=== PATIENT | male | born 1945 | race Caucasian/White ===

== ENCOUNTER 2020-10-27 15:17 | Emergency (ER) | payer OTHER ==
--- NOTE | 2020-10-27 16:21 | RAD REPORT ---
EXAM DESCRIPTION: RAD - Hand Right 3 View - 10/27/2020 4:06 pm CLINICAL HISTORY: PAIN COMPARISON: <Comparisons> FINDINGS: No right hand fracture is identified. Degenerative changes are present at the STT joint. N o malalignment. IMPRESSION: No right hand fracture is identified.
[2020-10-27] MEDS ORDERED: CEPHALEXIN 250 MG CAP ONE (17:07)
[2020-10-27] MEDS ORDERED: SMZ./TMP. 800/160 MG TABLET ONE (17:07)
--- NOTE | 2020-10-27 17:11 | ER ---
Nurse's Notes [facility] Name: Matthew Avila Age: 75 yrs Sex: Male : 1945 Arrival Date: 10/27/2020 Time: 15:19 Bed DIS2 Private MD: Diagnosis: Cellulitis of right upper limb-Hand Presentation: 10/27 15:38 Chief complaint: Patient states: Pain to the back of right hand starting at 13:00. Pt kg denies and trauma or injury to hand. Coronavirus screen: Client denies travel out of the [place] in the last 14 days. At this time, unable to obtain information related to travel outside the [place] At this time, the client does not indicate any symptoms associated with coronavirus-19. Ebola Screen: Patient negative for fever greater than or equal to 101.5 degrees Fahrenheit, and additional compatible Ebola Virus Disease symptoms Patient denies exposure to infectious person. Patient denies travel to an Ebola-affected area in the 21 days before illness onset. Initial Sepsis Screen: Does the patient meet any 2 criteria? No. Patient's initial sepsis screen is negative. Does the patient have a suspected source of infection? No. Patient's initial sepsis screen is negative. Risk Assessment: Do you want to hurt yourself or someone else? Patient reports no desire to harm self or others. Onset of symptoms was October 27, 2020 at 13:00. 15:38 Method Of Arrival: Ambulatory kg 15:38 Acuity: NELLY 4 kg Triage Assessment: 15:41 General: Appears in no apparent distress. Behavior is calm, cooperative, appropriate kg for age, quiet. Pain: Complains of pain in right hand Pain currently is 7 out of 10 on a pain scale. at worst was 9 out of 10 on a pain scale. level that patient reports is acceptable is 5 out of 10 on a pain scale. Pain began 3 hours ago. 15:41 Musculoskeletal: Capillary refill < 3 seconds, Swelling present in right hand Redness kg to back of hand, warm to touch. Historical: - Allergies: 15:41 No Known Allergies; kg - Home Meds: 15:41 amlodipine 5 mg tab 1 tab once daily [Active]; atorvastatin 80 mg oral tab 1 tab once kg daily [Active]; donepezil 5 mg oral tab 1 tab once daily [Active]; losartan 100 mg oral tab 1 tab once daily [Active]; Levemir U-100 Insulin 100 unit/mL subcutaneous soln [Active]; montelukast 10 mg oral tab 1 tab once daily [Active]; Myrbetriq 25 mg oral Tb24 1 tab once daily [Active]; tamsulosin 0.4 mg oral cap 1 cap once daily [Active]; Vascepa 1 gram oral cap 2 caps 2 times per day [Active]; venlafaxine 150 mg oral cp24 1 cap once daily [Active]; - PMHx: 15:41 Hypertensive disorder; Hypercholesterolemia; Type 2 diabetes mellitus; Dementia; kg - PSHx: 15:41 Left shoulder SX; kg - Immunization history:: Adult Immunizations up to date, Client reports receiving the 2nd dose of the Covid vaccine, Date received: April 25, 2020 Client reports receiving the 1st dose of the Covid vaccine, March 26, 2020. - Social history:: Smoking status: Patient denies any tobacco usage or history of. Patient uses alcohol, occasionally. - Family history:: not pertinent. - Hospitalizations: : No recent hospitalization is reported. Screenin:24 Abuse screen: Denies threats or abuse. Denies injuries from another. Nutritional ss screening: No deficits noted. Tuberculosis screening: Never had TB. Fall Risk None identified. Assessment: 16:24 General: Appears in no apparent distress. comfortable, Behavior is calm, cooperative, ss Denies fever, feeling ill, fatigue, chills. Pain: Complains of pain in right hand Pain currently is 7 out of 10 on a pain scale. Quality of pain is described as tender, Is continuous. Neuro: Level of Consciousness is awake, alert, obeys commands, Oriented to person, place, time, situation, Die Developer are equal bilaterally. Cardiovascular: Capillary refill < 3 seconds is brisk in bilateral fingers Patient's skin is warm and dry. Respiratory: Airway is patent Respiratory effort is even, unlabored, Respiratory pattern is regular, symmetrical, Denies cough, shortness of breath. EENT: Oral mucosa is moist. Derm: Skin is intact, is healthy with good turgor, Skin is dry, Skin is pink, warm \T\ dry. normal. Musculoskeletal: Swelling absent. 17:13 Reassessment: Patient appears in no apparent distress at this time. Patient and/or ss family updated on plan of care and expected duration. Pain level reassessed. Patient is alert, oriented x 3, equal unlabored respirations, skin warm/dry/pink. Vital Signs: 15:38 BP 150 / 89; Pulse 77; Resp 20; Temp 98.4(O); Pulse Ox 95% ; Weight 99.79 kg (R); kg Height 5 ft. 8 in. (172.72 cm) (R); Pain 7/10; 15:38 Body Mass Index 33.45 (99.79 kg, 172.72 cm) kg ED Course: 15:19 Patient arrived in ED. as 15:41 Triage completed. kg 15:59 Alec Melton MD is Attending Physician. rn 16:02 XRAY Hand RIGHT 3 View In Process Unspecified. EDMS 16:24 Mahi Clay RN is Primary Nurse. ss 16:24 Patient has correct armband on for positive identification. Bed in low position. Call ss light in reach. 17:11 Jason Cunningham MD is Referral Physician. rn 17:13 No provider procedures requiring assistance completed. Patient did not have IV access ss during this emergency room visit. Administered Medications: 16:50 Drug: Bactrim (trimethoprim-sulfamethoxazole) (160 mg-800 mg (DS) 2 tablet Route: PO; ss 17:13 Follow up: Response: No adverse reaction; Medication administered at discharge. ss 16:50 Drug: KeFLEX (cephalexin) 500 mg Route: PO; ss 17:13 Follow up: Response: No adverse reaction; Medication administered at discharge. ss Outcome: 17:11 Discharge ordered by . rn 17:19 Discharged to home ambulatory, with significant other. ss 17:19 Condition: good 17:19 Discharge instructions given to patient, Instructed on discharge instructions, follow up and referral plans. wound care, Demonstrated understanding of instructions, follow-up care, wound care. 17:20 Patient left the ED. ss Signatures: Dispatcher [employer] EDNC Macy Hale Roman, MD MD rn Smirch, Shelby, RN RN ss Yomaira Ramachandran RN RN kg
--- NOTE | 2020-10-27 17:11 | EDPHYS ---
Physician Documentation [facility] Name: Matthew Avila Age: 75 yrs Sex: Male : 1945 Arrival Date: 10/27/2020 Time: 15:19 Bed DIS2 Private MD: ED Physician Alec Melton HPI: 10/27 17:06 This 75 yrs old Male presents to ER via Ambulatory with complaints of Hand rn Swelling. 17:06 The patient or guardian reports pain, swelling. The complaints affect the right hand rn diffusely. Context: The problem was sustained at home, resulted from an unknown cause. Onset: The symptoms/episode began/occurred today. Modifying factors: The symptoms are alleviated by nothing, the symptoms are aggravated by movement, dependent position. Associated signs and symptoms: Pertinent negatives: cyanosis distally, decreased sensation distally, fever, numbness distally, tingling distally, vomiting. Severity of symptoms: At their worst the symptoms were moderate, in the emergency department the symptoms are unchanged. The patient has not experienced similar symptoms in the past. The patient has not recently seen a physician. Patient reports right hand pain that began a few hours ago, denies focal injury or fall. Patient not aware of any sting or bite. States is never happened before. Reports increased pain with movement of the hand and touching swollen area on the back of the right hand. No fever or chills.. Historical: - Allergies: 15:41 No Known Allergies; kg - Home Meds: 15:41 amlodipine 5 mg tab 1 tab once daily [Active]; atorvastatin 80 mg oral tab 1 tab once kg daily [Active]; donepezil 5 mg oral tab 1 tab once daily [Active]; losartan 100 mg oral tab 1 tab once daily [Active]; Levemir U-100 Insulin 100 unit/mL subcutaneous soln [Active]; montelukast 10 mg oral tab 1 tab once daily [Active]; Myrbetriq 25 mg oral Tb24 1 tab once daily [Active]; tamsulosin 0.4 mg oral cap 1 cap once daily [Active]; Vascepa 1 gram oral cap 2 caps 2 times per day [Active]; venlafaxine 150 mg oral cp24 1 cap once daily [Active]; - PMHx: 15:41 Hypertensive disorder; Hypercholesterolemia; Type 2 diabetes mellitus; Dementia; kg - PSHx: 15:41 Left shoulder SX; kg - Immunization history:: Adult Immunizations up to date, Client reports receiving the 2nd dose of the Covid vaccine, Date received: April 25, 2020 [facility] Client reports receiving the 1st dose of the Covid vaccine, March 26, 2020 [facility]. - Social history:: Smoking status: Patient denies any tobacco usage or history of. Patient uses alcohol, occasionally. - Family history:: not pertinent. - Hospitalizations: : No recent hospitalization is reported. ROS: 17:06 Constitutional: Negative for fever, chills, and weight loss, MS/Extremity: Positive for rn pain and swelling back of right hand Skin: Positive for redness of hand Exam: 17:06 Constitutional: This is a well developed, well nourished patient who is awake, alert, rn and in no acute distress. MS/ Extremity: Pulses equal, no cyanosis. Neurovascular intact. 2 to 3 cm area of mild swelling/erythema/warmth to dorsum of right hand just distal to wrist. No fusiform swelling of fingers or tenderness of fingers. There is a small break in skin and central area of erythema. Does not appear to be a bite or laceration. No focal fluctuance. No streaking or crossing of erythema past wrist or fingers. Vital Signs: 15:38 BP 150 / 89; Pulse 77; Resp 20; Temp 98.4(O); Pulse Ox 95% ; Weight 99.79 kg (R); kg Height 5 ft. 8 in. (172.72 cm) (R); Pain 7/10; 15:38 Body Mass Index 33.45 (99.79 kg, 172.72 cm) kg MDM: 16:19 Patient medically screened. 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 Data reviewed: vital signs, nurses notes, radiologic studies, plain films, and as a result, I will discharge patient. Test interpretation: by ED physician or midlevel provider: plain radiologic studies, X-ray right hand negative for foreign body or acute fracture. Counseling: I had a detailed discussion with the patient and/or guardian regarding: the historical points, exam findings, and any diagnostic results supporting the discharge/admit diagnosis, radiology results, the need for outpatient follow up, to return to the emergency department if symptoms worsen or persist or if there are any questions or concerns that arise at home. Special discussion: I discussed with the patient/guardian in detail that at this point there is no indication for admission to the hospital. It is understood, however, that if the symptoms persist or worsen the patient needs to return immediately for re-evaluation. Based on the history and exam findings, there is no indication for further emergent testing or inpatient evaluation. I discussed with the patient/guardian the need to see the hand specialist for further evaluation of the symptoms. 10/27 15:49 Order name: XRAY Hand RIGHT 3 View; Complete Time: 16:22 kg 10/27 17:06 Order name: Sling; Complete Time: 17:13 rn Administered Medications: 16:50 Drug: Bactrim (trimethoprim-sulfamethoxazole) (160 mg-800 mg (DS) 2 tablet Route: PO; ss 17:13 Follow up: Response: No adverse reaction; Medication administered at discharge. ss 16:50 Drug: KeFLEX (cephalexin) 500 mg Route: PO; ss 17:13 Follow up: Response: No adverse reaction; Medication administered at discharge. 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
[2020-10-27 17:26] VITALS: BP 150/89; TEMP 98.4; O2SAT 95
[2020-10-27] MEDS ORDERED: HYDROCODONE/APAP 5/325 MG TAB ONE (17:36)
== END 2020-10-27 17:20 | disposition home or self-care (01) ==
LOC: ER 15:17
DX: L03.113 Cellulitis of right upper limb (principal); I10 Essential (primary) hypertension; E11.9 Type 2 diabetes mellitus without complications; F03.90 Unspecified dementia, unspecified severity, without behavioral disturbance, psychotic disturbance, mood disturbance, and anxiety; Z79.4 Long term (current) use of insulin
CPT/HCPCS: 99283

== ENCOUNTER 2021-03-22 16:10 | Emergency (ER) | payer OTHER ==
[2021-03-22 16:47] LABS: Absolute Lymphocytes (CBC) 0.7 K/uL (0.7-4.9); Hematocrit 43.4 % (39.6-49.0); Lymphocytes % 8.1 % (15.3-44.8); MPV 7.8 fL (7.6-11.3); RBC Red Blood Cell Count 4.83 M/uL (4.33-5.43)
[2021-03-22 16:54] LABS: Protime INR 1.03
[2021-03-22 17:10] LABS: Albumin 3.3 g/dL (3.4-5.0); Bilirubin Direct 0.1 mg/dL (0-0.2); Bilirubin Total 0.6 mg/dL (0.2-1.0); Potassium 4.2 mmol/L (3.5-5.1); Protein, Total 6.8 g/dL (6.4-8.2)
[2021-03-22 17:11] LABS: Magnesium 2.8 mg/dL (1.8-2.4)
[2021-03-22 17:15] LABS: Troponin High Sensitivity 277.9 pg/mL (<58.9)
--- NOTE | 2021-03-22 18:04 | RAD REPORT ---
EXAM DESCRIPTION: CT - Head Brain Wo Cont - 03/22/2021 5:41 pm CLINICAL HISTORY: MENTAL STATUS CHANGE COMPARISON: No comparisons TECHNIQUE: Axial 5 mm thick images of the head were obtained without IV contrast. All CT scans are performed using dose optimization technique as appropriate and may include automated exposure control or mA/KV adjustment according to patient size. FINDINGS: No intracranial hemorrhage, mass, edema or shift of mid-line structures. No acute cortical based infarction. Mild to moderate atrophy changes are present with mild to moderate chronic ischemi c change. No abnormal extra-axial fluid collections. Ventricles are in proportion to volume loss. Art erial and physiologic calcifications are present. Mastoid air cells and visualized portions of the paranasal sinuses are clear. No acute bony findings. IMPRESSION: Mild to moderate atrophy and mild to moderate chronic ischemic changes are present. No a cute intracranial finding seen.
[2021-03-22] MEDS ORDERED: AMLODIPINE 5 MG TAB ONE (18:09)
--- NOTE | 2021-03-22 18:25 | RAD REPORT ---
EXAM DESCRIPTION: RAD - Chest Single View - 03/22/2021 5:48 pm CLINICAL HISTORY: AMS COMPARISON: Two-view chest March 2018 TECHNIQUE: AP portable chest image was obtained 03/22/2021 5:48 pm . FINDINGS: No peripheral mass consolidation. Interstitial pattern is accentuated from the prior study due to lower lung volumes, under penetrated technique and portable imaging. Nodular focus in the lef t upper lobe has not changed. Cardiac silhouette is exaggerated due to same collection of exam limita tions. Upper lobe vasculature within normal range for portable imaging. No measurable pleural effusion and no pneumothorax. No acute bony abnormality seen. No acute aortic findings suspected. IMPRESSION: Enlarged cardiac silhouette and prominent interstitial pattern similar to March 2018.
--- NOTE | 2021-03-22 20:44 | ER ---
Nurse's Notes [facility] Name: Matthew Avila Age: 76 yrs Sex: Male : 1945 Arrival Date: 03/22/2021 Time: 16:16 Bed 4 Private MD: Diagnosis: Hypoglycemia, unspecified Presentation: 03/22 16:17 Chief complaint: EMS states: EMS called to residence for low blood sugar, initial BGL ph 42, 18G IV to LFA, 1/2 amp of dextrose given, pt also ate a snack, BGL improved to 235. Pt is also hypertensive 203/106, reports hx of hypertension, states that he did take his medications this morning, also has a hx of dementia. Coronavirus screen: Vaccine status: Patient reports receiving the 2nd dose of the covid vaccine. At this time, the client does not indicate any symptoms associated with coronavirus-19. Ebola Screen: No symptoms or risks identified at this time. Initial Sepsis Screen: Does the patient meet any 2 criteria? No. Patient's initial sepsis screen is negative. Does the patient have a suspected source of infection? No. Patient's initial sepsis screen is negative. Risk Assessment: Do you want to hurt yourself or someone else? Patient reports no desire to harm self or others. Onset of symptoms was March 22, 2021. 16:17 Method Of Arrival: EMS: [facility] 16:17 Acuity: NELLY 3 ph Historical: - Home Meds: 16:29 amlodipine 5 mg tab 1 tab once daily [Active]; atorvastatin 80 mg Oral tab 1 tab once ph daily [Active]; donepezil 5 mg Oral tab 1 tab once daily [Active]; Levemir U-100 Insulin 100 unit/mL subcutaneous soln [Active]; losartan 100 mg Oral tab 1 tab once daily [Active]; montelukast 10 mg Oral tab 1 tab once daily [Active]; Myrbetriq 25 mg Oral Tb24 1 tab once daily [Active]; tamsulosin 0.4 mg Oral cap 1 cap once daily [Active]; Vascepa 1 gram Oral cap 2 caps 2 times per day [Active]; venlafaxine 150 mg Oral cp24 1 cap once daily [Active]; - PMHx: 16:29 Dementia; Hypercholesterolemia; Hypertensive disorder; Type 2 Diabetes Mellitus; ph - PSHx: 16:29 Left shoulder sx; ph - Immunization history:: Adult Immunizations unknown, Client reports receiving the 2nd dose of the Covid vaccine. - Social history:: Smoking status: Patient denies any tobacco usage or history of. Screenin:28 Abuse screen: Denies threats or abuse. Denies injuries from another. Nutritional ph screening: No deficits noted. Tuberculosis screening: No symptoms or risk factors identified. Fall Risk None identified. Assessment: 16:50 General: Appears in no apparent distress. comfortable, well groomed, Behavior is calm, ph cooperative, appropriate for age, Denies fever, feeling ill. Pain: Complains of pain in right episcopal. Neuro: Level of Consciousness is awake, alert, obeys commands, Oriented to person, place, situation, Speech is normal, Facial symmetry appears normal. Cardiovascular: Denies chest pain, shortness of breath, Capillary refill < 3 seconds in bilateral fingers Patient's skin is warm and dry. Respiratory: No deficits noted. GI: No signs and/or symptoms were reported involving the gastrointestinal system. Derm: Skin is intact, is healthy with good turgor, Skin is pink, warm \T\ dry. Musculoskeletal: Circulation, motion, and sensation intact. Range of motion: intact in all extremities. 18:14 Reassessment: Patient appears in no apparent distress at this time. Patient and/or ph family updated on plan of care and expected duration. Pain level reassessed. Patient is alert, oriented x 3, equal unlabored respirations, skin warm/dry/pink. Pt medicated for BP, also given a sandwich to maintain BGL WNL. 19:38 General: Appears uncomfortable. Pain:. mk Vital Signs: 16:15 BP 174 / 110; Pulse 80; Resp 18; Temp 98.2(O); Pulse Ox 99% ; ph 16:17 BP 168 / 110; Pulse 74; Resp 18; Temp 98.2; Pulse Ox 96% on R/A; ph 16:30 BP 182 / 118; Pulse 78; Resp 16; Pulse Ox 98% on R/A; ph 17:30 BP 172 / 112; Pulse 82; Resp 18; Pulse Ox 98% on R/A; ph 19:37 BP 181 / 105; Pulse 81; Resp 18; Pulse Ox 98% on R/A; Lianne Coma Score: 19:37 Eye Response: spontaneous(4). Verbal Response: oriented(5). Motor Response: obeys mk commands(6). Total: 15. ED Course: 16:16 Patient arrived in ED. ph 16:17 Kirk Metcalf NP is PHCP. pm1 16:17 Gregory Sotomayor MD is Attending Physician. pm1 16:28 Triage completed. ph 16:29 Arm band placed on Patient placed in an exam room. ph 16:30 Patient has correct armband on for positive identification. Placed in gown. Bed in low ph position. Call light in reach. Side rails up X2. Pulse ox on. NIBP on. Door closed. Noise minimized. Warm blanket given. 16:50 Paz Pandey RN is Primary Nurse. ph 16:51 Initial lab(s) drawn, by me, sent to lab. Maintain EMS IV. Dressing intact. Good blood ph return noted. Site clean \T\ dry. Gauge \T\ site: 18 LAC. 17:41 CT Head Brain wo Cont In Process Unspecified. EDMS 17:48 XRAY Chest (1 view) In Process Unspecified. EDMS Administered Medications: 18:15 Drug: amLODIPine 5 mg Route: PO; ph 18:30 Follow up: Response: No adverse reaction ph Outcome: 20:43 Discharge ordered by MD. pm1 21:02 Patient left the ED. andrew Signatures: Dispatcher [employer] EDaPz Santillan RN RN Kirk Metcalf NP [facility] pm1 Avril Olivo RN RN mk
--- NOTE | 2021-03-22 20:44 | EDPHYS ---
Physician Documentation [facility] Name: Matthew Avila Age: 76 yrs Sex: Male : 1945 Arrival Date: 03/22/2021 Time: 16:16 Bed 4 Private MD: GERA Physician Gregory Sotomayor HPI: 03/22 16:29 This 76 yrs old Male presents to ER via EMS with complaints of Low Blood Sugar. pm1 16:29 The patient or guardian reports hypoglycemia, that was potentially precipitated by not pm1 eating with dosage of insulin, Treatment prior to arrival includes: EMS administered D50, checked blood sugar on arrival, which was 42, after treatment, the blood sugar was 285. Onset: The symptoms/episode began/occurred just prior to arrival. Associated signs and symptoms: Pertinent negatives: nausea, vomiting, chest pain, shortness of breath. Current symptoms: In the emergency department the patient's symptoms have improved. It is unknown whether or not the patient has had similar symptoms in the past. The patient has not recently seen a physician, the patient's primary care provider is Dr. Zavala. Historical: - Home Meds: 16:29 amlodipine 5 mg tab 1 tab once daily [Active]; atorvastatin 80 mg Oral tab 1 tab once ph daily [Active]; donepezil 5 mg Oral tab 1 tab once daily [Active]; Levemir U-100 Insulin 100 unit/mL subcutaneous soln [Active]; losartan 100 mg Oral tab 1 tab once daily [Active]; montelukast 10 mg Oral tab 1 tab once daily [Active]; Myrbetriq 25 mg Oral Tb24 1 tab once daily [Active]; tamsulosin 0.4 mg Oral cap 1 cap once daily [Active]; Vascepa 1 gram Oral cap 2 caps 2 times per day [Active]; venlafaxine 150 mg Oral cp24 1 cap once daily [Active]; - PMHx: 16:29 Dementia; Hypercholesterolemia; Hypertensive disorder; Type 2 Diabetes Mellitus; ph - PSHx: 16:29 Left shoulder sx; ph - Immunization history:: Adult Immunizations unknown, Client reports receiving the 2nd dose of the Covid vaccine. - Social history:: Smoking status: Patient denies any tobacco usage or history of. ROS: 16:29 Constitutional: Negative for fever, chills, and weight loss, Cardiovascular: Negative pm1 for chest pain, palpitations, and edema, Respiratory: Negative for shortness of breath, cough, wheezing, and pleuritic chest pain, Abdomen/GI: Negative for abdominal pain, nausea, vomiting, diarrhea, and constipation, MS/Extremity: Negative for injury and deformity, Skin: Negative for injury, rash, and discoloration. Vital Signs: 16:15 BP 174 / 110; Pulse 80; Resp 18; Temp 98.2(O); Pulse Ox 99% ; ph 16:17 BP 168 / 110; Pulse 74; Resp 18; Temp 98.2; Pulse Ox 96% on R/A; ph 16:30 BP 182 / 118; Pulse 78; Resp 16; Pulse Ox 98% on R/A; ph 17:30 BP 172 / 112; Pulse 82; Resp 18; Pulse Ox 98% on R/A; ph 19:37 BP 181 / 105; Pulse 81; Resp 18; Pulse Ox 98% on R/A; mk Fairborn Coma Score: 19:37 Eye Response: spontaneous(4). Verbal Response: oriented(5). Motor Response: obeys mk commands(6). Total: 15. MDM: 16:18 Patient medically screened. eliane 20:15 Data reviewed: vital signs. Data interpreted: Pulse oximetry: on room air is 98 %. pm1 Interpretation: normal. 20:39 Refusal of service: The patient/guardian displays adequate decision making capability pm1 and despite a detailed discussion of alternatives, benefits, risks, and consequences refuses: repeat troponin. Had discussion with patient and on need for repeat troponin for further evaluation and possible admission. Patient does not want to wait any longer in the ER due to the time that he has already spent in the ER. 20:39 Special discussion: I have referred the patient to see his PCP for further evaluation pm1 of high blood pressure. 03/22 16:28 Order name: Basic Metabolic Panel; Complete Time: 17:17 pm1 03/22 16:28 Order name: CBC with Diff; Complete Time: 17:02 pm1 03/22 16:28 Order name: LFT's; Complete Time: 17:17 pm1 03/22 16:28 Order name: Magnesium; Complete Time: 17:17 pm1 03/22 16:28 Order name: NT PRO-BNP; Complete Time: 17:17 pm1 03/22 16:28 Order name: PT-INR; Complete Time: 17:02 pm1 03/22 16:28 Order name: Troponin HS; Complete Time: 17:17 pm1 03/22 16:28 Order name: XRAY Chest (1 view); Complete Time: 18:35 pm1 03/22 16:28 Order name: EKG; Complete Time: 16:29 pm1 03/22 16:28 Order name: CT Head Brain wo Cont; Complete Time: 18:05 pm1 03/22 16:41 Order name: Glucose, Ancillary Testing; Complete Time: 17:02 EDMS 03/22 19:44 Order name: Glucose, Ancillary Testing; Complete Time: 19:46 EDMS 03/22 19:51 Order name: COVID-19/FLU A+B (Document "Date of Onset" if Symptomatic) pm1 03/22 16:28 Order name: Cardiac monitoring; Complete Time: 16:52 pm1 03/22 16:28 Order name: EKG - Nurse/Tech; Complete Time: 18:03 pm1 03/22 16:28 Order name: IV Saline Lock; Complete Time: 16:52 pm1 03/22 16:28 Order name: Labs collected and sent; Complete Time: 16:52 pm1 03/22 16:28 Order name: O2 Per Protocol; Complete Time: 16:52 pm1 03/22 16:28 Order name: O2 Sat Monitoring; Complete Time: 16:52 pm1 Administered Medications: 18:15 Drug: amLODIPine 5 mg Route: PO; ph 18:30 Follow up: Response: No adverse reaction ph Disposition: 03/23 07:52 Co-signature as Attending Physician, Gregory Sotomayor MD I agree with the assessment and eliane plan of care. Disposition Summary: 03/22/21 20:43 Discharge Ordered Location: Home pm1 Problem: new pm1 Symptoms: have improved pm1 Condition: Undetermined pm1 Diagnosis - Hypoglycemia, unspecified pm1 Followup: pm1 - With: Emergency Department - When: As needed - Reason: Worsening of condition Followup: pm1 - With: Private Physician - When: 2 - 3 days - Reason: Recheck today's complaints, Continuance of care, Re-evaluation by your physician Discharge Instructions: - Discharge Summary Sheet pm1 - Hypoglycemia pm1 - Blood Glucose Monitoring, Adult pm1 - Preventing Hypoglycemia pm1 Forms: - Medication Reconciliation Form pm1 - Thank You Letter pm1 - Antibiotic Education pm1 - Prescription Opioid Use pm1 Signatures: Dispatcher [employer] EDGregory Fisher MD MD cha Hall, Patricia, RN RN Kirk Marin, DAV PATCHER pm1
[2021-03-22 21:37] VITALS: TEMP 98.2
[2021-03-22 21:40] VITALS: O2SAT 98
[2021-03-22 21:43] VITALS: BP 181/105
[2021-03-22 21:44] LABS: SARS-COV-2 RT PCR NEGATIVE (NEGATIVE)
--- NOTE | 2021-03-24 07:29 | EKG ---
Test Date: 2021-03-22 Test Time: 17:09:19 [place] Hiker: PH MEASUREMENT RESULTS: Intervals: Rate: 83 DC: 192 QRSD: 118 QT: 402 QTc: 472 [place]: P: 43 DC: 192 QRS: 16 T: 40 INTERPRETIVE STATEMENTS: Normal sinus rhythm Incomplete right bundle branch block Nonspecific T wave abnormality Prolonged QT Abnormal ECG Compared to ECG 04/04/2018 11:57:42 Incomplete right bundle-branch block now present T-wave abnormality now present Prolonged QT interval now present Electronically Signed On 03-24-21 07:26:19 FRENCH CORD BINDER by Ned Sorensen
== END 2021-03-22 21:02 | disposition home or self-care (01) ==
LOC: ER 16:10
DX: E11.649 Type 2 diabetes mellitus with hypoglycemia without coma (principal); F03.90 Unspecified dementia, unspecified severity, without behavioral disturbance, psychotic disturbance, mood disturbance, and anxiety; I10 Essential (primary) hypertension; Z79.4 Long term (current) use of insulin; Z20.822 Contact with and (suspected) exposure to COVID-19
CPT/HCPCS: 93005; 85025; 80048; 36415; 83735; 85610; 82947 ×3; 80076; 84484; 83880; 0240U; 70450; 71045; 99284

== ENCOUNTER 2022-05-16 08:49 | Day surgery (SDC) | payer OTHER ==
--- NOTE | 2022-05-13 20:40 | RAD REPORT ---
EXAM DESCRIPTION: [facility] Pa And Lat (2 Views)05/13/2022 4:03 pm CLINICAL HISTORY: Pre op pending hernia repair COMPARISON: Chest Single View dated 03/22/2021; Chest Pa And Lat (2 Views) dated 04/04/2018; CHEST PA AND LAT 2 VIEW dated 07/17/2009; CHEST PA AND LAT 2 VIEW dated 04/29/2005 TECHNIQUE: PA and lateral views of the chest. FINDINGS: The lungs are clear. Mild bibasilar atelectatic changes. No pneumothorax or effusion. The cardiomediastinal contours are unremarkable. IMPRESSION: No acute cardiopulmonary process.
[2022-05-16] MEDS ORDERED: NA CHLORIDE 0.9% 1,000 ML ONE (09:05)
[2022-05-16] MEDS: CEFAZOLIN SODIUM 1 GM/VIAL ONE ×2 (09:41→10:05)
[2022-05-16] MEDS ORDERED: FENTANYL CITR 100 MCG/2 ML ONE (09:48)
[2022-05-16] MEDS ORDERED: propofoL 200 MG/20 ML VIAL IV ONE (09:49)
[2022-05-16] MEDS ORDERED: LIDOCAINE 2% MPF 5 ML VIAL ONE (09:50)
[2022-05-16] MEDS ORDERED: MIDAZOLAM HCL 2 MG/2 ML INJ ONE (09:50)
[2022-05-16] MEDS ORDERED: ONDANSETRON 4 MG/2 ML VIAL ONE (09:51)
[2022-05-16] MEDS ORDERED: GLYCOPYRROLATE 0.2 MG/ML SYR ONE ×2 (09:54→09:55)
[2022-05-16] MEDS ORDERED: ROCURONIUM 50 MG/5 ML VIAL IV ONE (09:54)
[2022-05-16] MEDS ORDERED: NEOSTIGMINE 1 MG/ML -10 ML VIAL ONE (09:55)
[2022-05-16] MEDS ORDERED: Mastisol Adhesive Liq ONE (11:23)
--- NOTE | 2022-05-16 11:44 | P.BOP ---
Preoperative diagnosis: tender reducible bilateral inguinal hernias Postoperative diagnosis: same Primary procedure: Laparoscopic repair of Right and Left inguinal hernia with mesh Pediatrician/Medical Doctor: Chastity Alcantara) Estimated blood loss: <10cc Specimen: none Findings: bilateral inguinal hernias Anesthesia: General Complications: None Implants: right and left 3D mesh Transferred to: Recovery Room Condition: Good
[2022-05-16 12:16] VITALS: BP 154/57; TEMP 97.4; O2SAT 95
--- NOTE | 2022-05-16 13:12 | EKG ---
Test Date: 2022-05-13 Test Time: 15:21:12 Child Support Agent: EMELY MEASUREMENT RESULTS: Intervals: Rate: 48 PA: 200 QRSD: 118 QT: 470 QTc: 419 [place]: P: 104 PA: 200 QRS: 45 T: 52 INTERPRETIVE STATEMENTS: Sinus bradycardia Nonspecific intraventricular conduction delay Abnormal ECG Compared to ECG 03/22/2021 17:09:19 Intraventricular conduction delay now present Incomplete right bundle-branch block no longer present T-wave abnormality no longer present Prolonged QT interval no longer present Electronically Signed On 05-16-22 13:07:23 CDT by Ar Boss
[2022-05-16] MEDS ORDERED: TAMSULOSIN 0.4 MG SR CAP ONE (14:40)
[2022-05-16] MEDS ORDERED: HYDROCODONE/APAP 7.5/325 MG TAB ONE (14:52)
== END 2022-05-16 15:35 | disposition home or self-care (01) ==
LOC: OR 08:49
PROVIDERS: ATTEND Surgery
PROC: 0YUA4JZ Supplement Bilateral Inguinal Region with Synthetic Substitute, Percutaneous Endoscopic Approach (ICD-10-PCS; principal; 2022-05-16 10:00)
DX: K40.20 Bilateral inguinal hernia, without obstruction or gangrene, not specified as recurrent (principal)
CPT/HCPCS: 71046; 82947; 93005; J0690; J2001; J2250; J2405; J2704; J2710; J3010; J7030

== ENCOUNTER 2022-05-21 15:37 | Emergency (ER) | payer OTHER ==
--- OUTSIDE RECORDS SUMMARY | 2022-05-21 15:44 | XMS REPORT | Continuity of Care Document ---
:1945 Author Organization [facility] t Address [address] [place] [address] Care Team Providers Name Role Phone Sean Zavala Attending Clinician Unavailable Marcus Silva Attending Clinician Payers Payer Name Policy Type Policy Number Effective Date Expiration Date S ource MEDICARE PART A [id number] 2009 AND B 00:00:00 Problems Condition Condition Condition Status Onset Resolution Last Treating Co mments Source Name Details Category Date Date Treatment Clinician Date [id number] Benign Problem Common prostatic Spirit hyperplasi - [facility] a with [facility] urinary Medical tract Center symptoms, symptom details unspecifie d [id number] Current Problem Common moderate Spirit episode of - [facility] major [facility] Medical without Center prior episode [id number] Allergic Problem Commo n rhinitis, Spirit unspecifie - CHI d [facility] seasonalit [facility] y, Medical unspecifie Center d trigger [id number] Type 2 [place] [address] diabetes Spirit mellitus - CHI with other diabetic 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 [id number] Other Problem Common obesity Spirit due to - CHI excess 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 - CHI paroxysmal St anxiety] [facility] [id number] Tobacco Problem Commo n use Spirit disorder - CHI [facility] [id number] Generalize Problem Com mon d anxiety Spirit disorder - [facility] [id number] Mixed Problem Common hyperlipid Spirit emia [facility] Urge Urgency Problem Common incontinen incontinen Sp roger ce of ce [facility] urine [facility] [id number] Hypertrigl Problem Co mmon yceridemia [facility] [id number] BPH loc w Problem Com mon urin Spirit obs/LUTS - [facility] [id number] OAB Problem Common (overactiv Spirit e bladder) [facility] [id number] Arthritis Problem Co mmon [id number] of right Spirit knee [facility] [id number] nursing home Problem Com mon (current) Spirit use of [facility] insulin [facility] [id number] Primary Problem Comm on osteoarthr Spirit itis of [facility] left knee [facility] [id number] Essential Problem Comm on hypertensi Spirit on [facility] [id number] Body mass Problem Com mon index Spirit (BMI) - [facility] 31.0-31.9, [facility] Hypoglycem Hypoglycem Problem C ommon ic event ic event Spirit in in [facility] diabetes diabetes [facility] [id number] Arthritis Problem Co mmon [id number] of left Spirit knee [facility] [id number] [place], [place] [address] joint, Spirit knee, - [facility] right [facility] [id number] [place], [place] [address] joint[facility], left [facility] [id number] Primary Problem Commo n osteoarthr Spirit itis of [facility] both knees [facility] 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 [place] aphasia aphasia 12:52:51 l (finding) (finding) Herm nasir Active Problem 04/02/2022 Christi Mas ERIKA Hernandez,[facility] Aphasia Aphasia Problem Active 2022-04-02 [facility] (finding) (finding) 12:52:51 l Active David Problem 04/02/2022 BRUNO ConnollyNM [facility] [place] Dementia Dementia Problem Active 2022-04-02 Memoria (disorder) (disorder) 12:52:51 l Active David Problem 04/02/2022 [facility], ERIKA Hernandez,NM [facility] [place] Diabetes Diabetes Problem Active 2022-04-02 Memoria mellitus mellitus 12:52:51 l (disorder) (disorder) He rmann Active Problem 04/02/2022 [facility] Problem Active 2022-04-02 Memoria oral poral 12:52:51 l dementia dementia Maksim n (disorder) (disorder) Active Problem 04/02/2022 [facility],MNA [facility] [place] Hypertensi Hypertens Problem Active 2022-04-02 Memoria ve cassandra 12:52:51 l disorder, disorder, Herm nasir systemic systemic arterial arterial (disorder) (disorder) Active Problem 04/02/2022 [facility] Hyperlipid Hyperlipi Problem Active 2022-04-02 Memoria emia demia 12:52:51 l (disorder) (disorder) Justice ann Active Problem 04/02/2022 [facility] Impaired Impaired Problem Active 2022-04-02 Memoria cognition cognition 12:52:51 l (finding) (finding) Flakito nasir Active Problem 04/02/2022 [facility] Simple Simple Problem Active 2022-04-02 [place] obesity obesity 12:52:51 l (disorder) (disorder) He ann Active Problem 04/02/2022 [facility] F03.90 - F03.90 - Diagnosis Active 2021-08-11 Memoria UNSPECIFIE UNSPECIFIE 13:12:00 l D DEMENTIA D DEMENTIA He rmann WITHOUT B WITHOUT B Active [facility] Allergies, Adverse Reactions, Alerts Allergy Allergy Status Severity Reaction(s) Onset Inactive Treating Comm ents Source Name Type Date Date Clinician 7227 Drug Active Unknown Common allergy [facility] Social History Social Habit Start Date Stop Date Quantity Comments Source History of Tobacco Common Spirit - Use [facility] Sex Assigned At Common Sp roger - [facility] Social History 2019-11-20 2019-11-20 Nimco patel 15:28:09 15:28:09 Smoking Status Start Date Stop Date Source Tobacco smoking status 2022-03-30 20:02:11 Nika Hernandez Never Smoker [facility] Medications Ordered Filled Start Stop Current Ordering Indication Dosage Frequency Signature Comments Components Source Medication Medication Date Date Medication? 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, Height, 70.966, kg, 03/30/22 14:31:00 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, Weight Depakote ER 2021-03 Yes 250 mg = 1 Memoria 250 mg oral 0-25 tab, PO, l tablet, 20:01: Bedtime, # Herm nasir extended 00 30 tab, 3 release Refill(s), Pharmacy: [facility], 167.64, cm, 12/28/21 14:40:00 CDT, Height, 72.273, kg, 12/28/21 14:40:00 CDT, Weight carvedilol 2021-03 Yes 6.25 mg = Me moria 6.25 mg 0-25 1 tab, PO, l oral tablet 19:48: BID, # 180 [place] 00 tab, 1 Refill(s) venlafaxine Yes = 1 cap, Me moria 150 mg oral 9-18 PO, Daily, l capsule, 20:22: # 30 [place] extended 00 unknown release unit, 2 Refill(s), Pharmacy: [facility] #[id number], 165.1, cm, 09/02/21 14:38:00 CDT, Height, 80.455, kg, 09/02/21 14:38:00 CDT, Weight Solifenacin Solifenacin 2021-0 3- No 1{table QD Solifenaci Succinate 5 Succinate 5 9-14 04-12 t} n MG MG 00:00: 00:00 Succinate 00 :00 5 MG Solifenacin Solifenacin 2021-0 2023- No 1{table QD Solifenaci Succinate 5 Succinate 5 9-14 04-12 t} n MG MG 00:00: 00:00 Succinate 00 :00 5 MG Solifenacin Solifenacin 2021-0 2023- No 1{table QD Solifenaci Succinate 5 Succinate 5 9-14 04-12 t} n MG MG 00:00: 00:00 Succinate 00 :00 5 MG Solifenacin Solifenacin 2022-0 2023- No 1{table QD Solifenaci Succinate 5 Succinate 5 9-14 04-12 t} n MG MG 00:00: 00:00 Succinate 00 :00 5 MG Solifenacin Solifenacin 2022-0 2023- No 1{table QD Solifenaci Succinate 5 Succinate 5 9-14 04-12 t} n MG MG 00:00: 00:00 Succinate 00 :00 5 MG Solifenacin Solifenacin 2-0 2023- No 1{table QD Solifenaci Succinate 5 Succinate 5 9-14 04-12 t} n MG MG 00:00: 00:00 Succinate 00 :00 5 MG Solifenacin Solifenacin 2-0 2023- No 1{table QD Solifenaci Succinate 5 Succinate 5 9-14 04-12 t} n MG MG 00:00: 00:00 Succinate 00 :00 5 MG Solifenacin Solifenacin 2022-0 2023- No 1{table QD Solifenaci Succinate 5 Succinate 5 9-14 04-12 t} n MG MG 00:00: 00:00 Succinate 00 :00 5 MG Solifenacin Solifenacin 2022-0 2023- No 1{table QD Solifenaci Succinate 5 Succinate 5 9-14 04-12 t} n MG MG 00:00: 00:00 Succinate 00 :00 5 MG PROzac 2021-0 Yes PO, Daily, Memor ia 6-30 0 l 19:39: Refill(s) [place] 00 donepezil Yes See Memoria 10 mg oral 6-02 Instructio l tablet 17:11: ns, TAKE 1 Kimberly nn 00 TABLET AT BEDTIME, # 90 tab, 2 Refill(s), Pharmacy: [facility] [place] [facility], 167.64, cm, 07/22/21 14:12:00 CDT, Height, 81.364, kg, 07/22/21 14:12:00 CDT, Weight Donepezil Donepezil No 1{table QD Donepezil HCl 10 MG HCl 10 MG 5-25 t_at_be HCl 10 MG 00:00: dtime} 00 FLUoxetine FLUoxetine No 1{capsu QD FLUoxetine HCl 20 MG HCl 20 MG 5-25 le} HCl 20 MG 00:00: 00 Donepezil Donepezil 2021-0 No 1{table QD Donepezil HCl 10 MG HCl 10 MG 5-25 t_at_be HCl 10 MG 00:00: dtime} 00 FLUoxetine FLUoxetine No 1{capsu QD FLUoxetine HCl 20 MG HCl 20 MG 5-25 le} HCl 20 MG 00:00: 00 Donepezil Donepezil 2021-0 No 1{table QD Donepezil HCl 10 MG HCl 10 MG 5-25 t_at_be HCl 10 MG 00:00: dtime} 00 FLUoxetine FLUoxetine 0 No 1{capsu QD FLUoxetine HCl 20 MG HCl 20 MG 5-25 le} HCl 20 MG 00:00: 00 solifenacin 2021-0 Yes TAKE ONE Me moria 5 mg oral 5-19 (1) l tablet 19:16: TABLET(S) Maksim n 00 BY MOUTH ONCE A DAY. pantoprazol Yes 40 mg = 1 M emoria e 40 mg 5-19 tab, PO, l oral 19:16: Daily, # David enteric 00 30 tab, 0 coated Refill(s) tablet Levemir 0 Yes SUB-Q, 0 Memori a FlexPen 5-19 Refill(s) l 19:16: [place] 00 donepezil 2021-0 Yes 10 mg = 1 Mem oria 10 mg oral 5-19 tab, PO, l tablet 19:15: Daily, # David 00 30 tab, 0 Refill(s) losartan 2021-0 Yes 100 mg = 1 Mem oria 100 mg oral 5-19 tab, PO, l tablet 19:14: Daily, # David 00 30 tab, 0 Refill(s) ramipril 2021-0 Yes 2.5 mg = 1 Mem oria 2.5 mg oral 5-19 cap, PO, l capsule 19:13: Daily, # Maksim n 00 30 cap, 0 Refill(s) venlafaxine 0 Yes 150 mg = 1 Memoria 150 mg oral 5-18 cap, PO, l capsule, 15:09: Daily, # Kimberly nn extended 00 30 cap, 3 release Refill(s), Pharmacy: [facility] #[id number], 167.64, cm, 06/10/21 15:07:00 CDT, Height, 85, kg, 06/10/21 15:07:00 CDT, Weight Namenda 5 0 Yes 5 mg = 1 [place] mg oral 4-08 tab, PO, l tablet 13:49: BID, # 180 [place] 00 tab, 3 Refill(s), Pharmacy: [facility] #[id number], 167.64, cm, 06/10/21 15:07:00 CDT, Height, 85, kg, 06/10/21 15:07:00 CDT, Weight Namenda 5 0 No 5 mg = 1 [place] mg oral 4-08 tab, PO, l tablet 13:47: BID, # 180 [place] nn 00 tab, 3 Refill(s), [id number], 167.64, cm, 06/10/21 15:07:00 CDT, Height, 85, kg, 06/10/21 15:07:00 CDT, Weight Namenda 5 0 No 5 mg = 1 [place] mg oral 4-07 tab, PO, l tablet 20:45: BID, X 30 Maksim n 00 day, # 60 tab, 3 Refill(s), [facility][id number], 167.64, cm, 06/10/21 15:07:00 CDT, Height, 85, kg, 06/10/21 15:07:00 CDT, Weight VESIcare 5 VESIcare 5 2021-0 2022- No 1{table QD VESIcare 5 MG MG 3-23 12-18 t} MG 00:00: 00:00 00 :00 VESIcare 5 VESIcare 5 2021-0 2022- No 1{table QD VESIcare 5 MG MG 3-23 12-18 t} MG 00:00: 00:00 00 :00 VESIcare 5 VESIcare 5 2021-0 2022- No 1{table QD VESIcare 5 MG MG 3-23 12-18 t} MG 00:00: 00:00 00 :00 VESIcare 5 VESIcare 5 2021-0 2022- No 1{table QD VESIcare 5 MG MG 3-23 12-18 t} MG 00:00: 00:00 00 :00 VESIcare 5 VESIcare 5 2021-0 2022- No 1{table QD VESIcare 5 MG MG 3-23 12-18 t} MG 00:00: 00:00 00 :00 VESIcare 5 VESIcare 5 2021-0 2022- No 1{table QD VESIcare 5 MG MG 3-23 12-18 t} MG 00:00: 00:00 00 :00 Hyalgan 20 Hyalgan 20 2-0 No 20mg C ommon mg mg 04-14 Spirit 00:00: - CHI [facility] Hyalgan 20 Hyalgan 20 2-0 No 20mg C ommon mg mg 04-14 Spirit 00:00: - CHI [facility] Hyalgan 20 Hyalgan 20 2-0 No 20mg C ommon mg mg 04-14 Spirit 00:00: - CHI [facility] Hyalgan 20 Hyalgan 20 2022-0 No 20mg C ommon mg mg 04-14 Spirit 00:00: - CHI [facility] Hyalgan 20 Hyalgan 20 2-0 No 20mg C ommon mg mg 04-14 Spirit 00:00: - CHI [facility] Hyalgan 20 Hyalgan 20 2-0 No 20mg C ommon mg mg 2 Spirit 00:00: - CHI [facility] Hyalgan 20 Hyalgan 20 2021-0 No 20mg C ommon mg mg 04-14 Spirit 00:00: - CHI [facility] Hyalgan 20 Hyalgan 20 2021-0 No 20mg C ommon mg mg 04-14 Spirit 00:00: - CHI [facility] Hyalgan 20 Hyalgan 20 2021-0 No 20mg C ommon mg mg 04-14 Spirit 00:00: - CHI [facility] Hyalgan 20 Hyalgan 20 2021-0 No 20mg C ommon mg mg 04-14 Spirit 00:00: - CHI [facility] Hyalgan 20 Hyalgan 20 2021-0 No 20mg C ommon mg mg 04-14 Spirit 00:00: - CHI [facility] Hyalgan 20 Hyalgan 20 2021-0 No 20mg C ommon mg mg 04-14 Spirit 00:00: - CHI [facility] Hyalgan 20 Hyalgan 20 2021-0 No 20mg C ommon mg mg 04-14 Spirit 00:00: - CHI [facility] Hyalgan 20 Hyalgan 20 2021-0 No 20mg C ommon mg mg 04-14 Spirit 00:00: - CHI [facility] Hyalgan 20 Hyalgan 20 2021-0 No 20mg C ommon mg mg 04-14 Spirit 00:00: - CHI [facility] Hyalgan 20 Hyalgan 20 2021-0 No 20mg C ommon mg mg 04-14 Spirit 00:00: - CHI [facility] Hyalgan 20 Hyalgan 20 2021-0 No 20mg C ommon mg mg 04-14 Spirit 00:00: - CHI [facility] Hyalgan 20 Hyalgan 20 2-0 No 20mg C ommon mg mg 04-14 Spirit 00:00: - CHI [facility] Hyalgan 20 Hyalgan 20 2-0 No 20mg C ommon mg mg 04-14 Spirit 00:00: - CHI [facility] Hyalgan 20 Hyalgan 20 2-0 No 20mg C ommon mg mg 04-07 Spirit 00:00: - CHI [facility] Hyalgan 20 Hyalgan 20 2021-0 No 20mg C ommon mg mg 04-07 Spirit 00:00: - CHI [facility] Hyalgan 20 Hyalgan 20 2021-0 No 20mg C ommon mg mg 04-07 Spirit 00:00: - CHI [facility] Hyalgan 20 Hyalgan 20 2021-0 No 20mg C ommon mg mg 04-07 Spirit 00:00: - CHI [facility] Hyalgan 20 [place]gan 20 2021-0 No 20mg C ommon mg mg 04-07 Spirit 00:00: - CHI 00 [facility] Hyalgan 20 Hyalgan 20 2021-0 No 20mg C ommon mg mg 04-07 Spirit 00:00: - CHI [facility] Hyalgan 20 Hyalgan 20 2021-0 No 20mg C ommon mg mg 04-07 Spirit 00:00: - CHI [facility] Hyalgan 20 Hyalgan 20 2021-0 No 20mg C ommon mg mg 04-07 Spirit 00:00: - CH[facility] Hyalgan 20 Hyalgan 20 2021-0 No 20mg C ommon mg mg 04-07 Spirit 00:00: - CHI [facility] Hyalgan 20 Hyalgan 20 2021-0 No 20mg C ommon mg mg 04-07 Spirit 00:00: - CH[facility] Hyalgan 20 Hyalgan 20 2021-0 No 20mg C ommon mg mg 04-07 Spirit 00:00: - CH[facility] Hyalgan 20 Hyalgan 20 2021-0 No 20mg C ommon mg mg 04-07 Spirit 00:00: - CH[facility] Hyalgan 20 Hyalgan 20 2021-0 No 20mg C ommon mg mg 04-07 Spirit 00:00: - CH[facility] Hyalgan 20 Hyalgan 20 2021-0 No 20mg C ommon mg mg 04-07 Spirit 00:00: - CH[facility] Hyalgan 20 Hyalgan 20 2021-0 No 20mg C ommon mg mg 04-07 Spirit 00:00: - CH[facility] Hyalgan 20 Hyalgan 20 2021-0 No 20mg C ommon mg mg 04-07 Spirit 00:00: - CHI 00 [facility] Hyalgan 20 Hyalgan 20 2021-0 No 20mg C ommon mg mg 04-07 Spirit 00:00: - CH[facility] Hyalgan 20 Hyalgan 20 2021-0 No 20mg C ommon mg mg 04-07 Spirit 00:00: - CH[facility] Hyalgan 20 Hyalgan 20 2021-0 No 20mg C ommon mg mg 04-07 Spirit 00:00: - CH[facility] Hyalgan 20 Hyalgan 20 2021-0 No 20mg C ommon mg mg 03-31 Spirit 00:00: - CH[facility] Hyalgan 20 Hyalgan 20 2021-0 No 20mg C ommon mg mg 03-31 Spirit 00:00: - CH[facility] Hyalgan 20 Hyalgan 20 2021-0 No 20mg C ommon mg mg 03-31 Spirit 00:00: - CH[facility] Hyalgan 20 Hyalgan 20 2021-0 No 20mg C ommon mg mg 03-31 Spirit 00:00: - CH[facility] Hyalgan 20 Hyalgan 20 2021-0 No 20mg C ommon mg mg 03-31 Spirit 00:00: - CH[facility] Hyalgan 20 Hyalgan 20 2021-0 No 20mg C ommon mg mg 03-31 Spirit 00:00: - [facility] Hyalgan 20 Hyalgan 20 2021-0 No 20mg C ommon mg mg 03-31 Spirit 00:00: - [facility] Hyalgan 20 Hyalgan 20 2021-0 No 20mg C ommon mg mg 03-31 Spirit 00:00: - CH[facility] Hyalgan 20 Hyalgan 20 2021-0 No 20mg C ommon mg mg 03-31 Spirit 00:00: - CH[facility] Hyalgan 20 Hyalgan 20 2021-0 No 20mg C ommon mg mg 03-31 Spirit 00:00: - [facility] Hyalgan 20 Hyalgan 20 2021-0 No 20mg C ommon mg mg 03-31 Spirit 00:00: - [facility] Hyalgan 20 Hyalgan 20 2021-0 No 20mg C ommon mg mg 03-31 Spirit 00:00: - CHI 00 [facility] Hyalgan 20 Hyalgan 20 2021-0 No 20mg C ommon mg mg 03-31 Spirit 00:00: - [facility] Hyalgan 20 Hyalgan 20 2021-0 No 20mg C ommon mg mg 03-31 Spirit 00:00: - [facility] Hyalgan 20 Hyalgan 20 2021-0 No 20mg C ommon mg mg 03-31 Spirit 00:00: - [facility] Hyalgan 20 Hyalgan 20 2021-0 No 20mg C ommon mg mg 03-31 Spirit 00:00: - [facility] Hyalgan 20 Hyalgan 20 2021-0 No 20mg C ommon mg mg 03-31 Spirit 00:00: - [facility] Hyalgan 20 Hy[place]gan 20 2021-0 No 20mg C ommon mg mg 03-31 Spirit 00:00: - [facility] Hyalgan 20 Hyalgan 20 2021-0 No 20mg C ommon mg mg 03-31 Spirit 00:00: - [facility] Hyalgan 20 Hy[place]gan 20 2021-0 No 20mg C ommon mg mg 03-24 Spirit 00:00: - [facility] Hyalgan 20 Hyalgan 20 2021-0 No 20mg C ommon mg mg 03-24 Spirit 00:00: - [facility] Hy[place]gan 20 [place] 20 2021-0 No 20mg C ommon mg mg 03-24 Spirit 00:00: - [facility] Hyalgan 20 [place]gan 20 2021-0 No 20mg C ommon mg mg 03-24 Spirit 00:00: - [facility] Hyalgan 20 Hy[place]gan 20 2021-0 No 20mg C ommon mg mg 03-24 Spirit 00:00: - [facility] Hyalgan 20 Hyalgan 20 2021-0 No 20mg C ommon mg mg 03-24 Spirit 00:00: - [facility] Hyalgan 20 Hyalgan 20 2021-0 No 20mg C ommon mg mg 03-24 Spirit 00:00: - [facility] Hyalgan 20 Hyalgan 20 2021-0 No 20mg C ommon mg mg 03-24 Spirit 00:00: - [facility] Hyalgan 20 Hyalgan 20 2021-0 No 20mg C ommon mg mg 03-24 Spirit 00:00: - [facility] Hyalgan 20 Hyalgan 20 2021-0 No 20mg C ommon mg mg 03-24 Spirit 00:00: - [facility] Hyalgan 20 Hyalgan 20 2021-0 No 20mg C ommon mg mg 03-24 Spirit 00:00: - [facility] Hyalgan 20 Hyalgan 20 2021-0 No 20mg C ommon mg mg 03-24 Spirit 00:00: - [facility] Hyalgan 20 Hyalgan 20 2021-0 No 20mg C ommon mg mg 03-24 Spirit 00:00: - [facility] Hyalgan 20 Hyalgan 20 2021-0 No 20mg C ommon mg mg 03-24 Spirit 00:00: - [facility] Hyalgan 20 Hy[place]gan 20 2021-0 No 20mg C ommon mg mg 03-24 Spirit 00:00: - [facility] Hyalgan 20 Hyalgan 20 2021-0 No 20mg C ommon mg mg 03-24 Spirit 00:00: - [facility] Hyalgan 20 Hyalgan 20 2021-0 No 20mg C ommon mg mg 03-24 Spirit 00:00: - [facility] Hyalgan 20 Hyalgan 20 2021-0 No 20mg C ommon mg mg 03-24 Spirit 00:00: - [facility] Hyalgan 20 Hyalgan 20 2021-0 No 20mg C ommon mg mg 03-24 Spirit 00:00: - [facility] Hyalgan 20 Hyalgan 20 2021-0 No 20mg C ommon mg mg 03-17 Spirit 00:00: - [facility] Hyalgan 20 Hyalgan 20 2021-0 No 20mg C ommon mg mg 03-17 Spirit 00:00: - [facility] Hyalgan 20 Hyalgan 20 2021-0 No 20mg C ommon mg mg 03-17 Spirit 00:00: - [facility] Hyalgan 20 Hyalgan 20 2021-0 No 20mg C ommon mg mg 03-17 Spirit 00:00: - [facility] Hyalgan 20 [place]gan 20 2021-0 No 20mg C ommon mg mg 03-17 Spirit 00:00: - [facility] Hyalgan 20 Hyalgan 20 2021-0 No 20mg C ommon mg mg 03-17 Spirit 00:00: - [facility] Hyalgan 20 Hyalgan 20 2021-0 No 20mg C ommon mg mg 03-17 Spirit 00:00: - [facility] Hyalgan 20 Hyalgan 20 2021-0 No 20mg C ommon mg mg 03-17 Spirit 00:00: - [facility] Hyalgan 20 Hyalgan 20 2021-0 No 20mg C ommon mg mg 03-17 Spirit 00:00: - [facility] Hyalgan 20 [place]algan 20 2021-0 No 20mg C ommon mg mg 03-17 Spirit 00:00: - [facility] Hy[place]gan 20 [place]gan 20 2021-0 No 20mg C ommon mg mg 03-17 Spirit 00:00: - [facility] Hyalgan 20 [place] 20 2021-0 No 20mg C ommon mg mg 03-17 Spirit 00:00: - [facility] Hyalgan 20 [place] 20 2021-0 No 20mg C ommon mg mg 03-17 Spirit 00:00: - [facility] Hyalgan 20 [place] 20 2021-0 No 20mg C ommon mg mg 03-17 Spirit 00:00: - [facility] Hyalgan 20 [place] 20 2021-0 No 20mg C ommon mg mg 03-17 Spirit 00:00: - [facility] Hyalgan 20 [place]gan 20 2021-0 No 20mg C ommon mg mg 03-17 Spirit 00:00: - [facility] Hyalgan 20 [place] 20 2021-0 No 20mg C ommon mg mg 03-17 [facility] 00:00: - [facility] Hyalgan 20 Hyalgan 20 2021-0 No 20mg C ommon mg mg 03-17 Spirit 00:00: - [facility] Hyalgan 20 Hyalgan 20 2021-0 No 20mg C ommon mg mg 03-17 Spirit 00:00: - [facility]I 00 [facility] Hyalgan 20 Hyalgan 20 2020-03 No 20mg C ommon mg mg - Spirit 00:00: - [facility]I 00 [facility] Hyalgan 20 Hyalgan 20 2020-03 No 20mg C ommon mg mg 2- Spirit 00:00: - [facility]I 00 [facility] Hyalgan 20 Hyalgan 20 2020-03 No 20mg C ommon mg mg 2- Spirit 00:00: - [facility]I 00 [facility] Hyalgan 20 Hyalgan 20 2020-03 No 20mg C ommon mg mg 05-02 Spirit 00:00: - [facility]I 00 [facility] Hyalgan 20 Hyalgan 20 2020-03 No 20mg C ommon mg mg 05-02 Spirit 00:00: - [facility]I 00 [facility] Hyalgan 20 Hyalgan 20 2020-03 No 20mg C ommon mg mg 05-02 Spirit 00:00: - [facility] 00 [facility] Hyalgan 20 Hyalgan 20 2020-03 No 20mg C ommon mg mg 05-02 [facility] 00:00: - [facility] 00 [facility] Hyalgan 20 Hyalgan 20 2020-03 No 20mg C ommon mg mg 05-02 [facility] 00:00: - [facility]I 00 [facility] Hyalgan 20 Hyalgan 20 2020-03 No 20mg C ommon mg mg - Spirit 00:00: - [facility] 00 [facility] Hyalgan 20 Hyalgan 20 1 No 20mg C ommon mg mg 2- Spirit 00:00: - [facility] 00 [facility] Hyalgan 20 Hyalgan 20 1 No 20mg C ommon mg mg 2- Spirit 00:00: - [facility] 00 [facility] Hyalgan 20 Hyalgan 20 2020- No 20mg C ommon mg mg 2- Spirit 00:00: - [facility] 00 [facility] Hyalgan 20 Hyalgan 20 2020-03 No 20mg C ommon mg mg 2- Spirit 00:00: - [facility] 00 [facility] Hyalgan 20 Hyalgan 20 2020-03 No 20mg C ommon mg mg 2-27 Spirit 00:00: - [facility] Hyalgan 20 Hyalgan 20 2020-03 No 20mg C ommon mg mg 2-27 Spirit 00:00: - [facility] Hyalgan 20 Hyalgan 20 2020-03 No 20mg C ommon mg mg 2-27 Spirit 00:00: - [facility] Hyalgan 20 Hyalgan 20 2020-03 No 20mg C ommon mg mg 2-27 Spirit 00:00: - [facility] Hyalgan 20 Hyalgan 20 2020-03 No 20mg C ommon mg mg 2-27 Spirit 00:00: - [facility] Hyalgan 20 Hyalgan 20 2020-03 No 20mg C ommon mg mg 2-27 Spirit 00:00: - [facility] Donepezil Yes 10 mg = 1 Mem oria hydrochlori 9-21 tab, PO, l de 10 MG 15:01: Bedtime, # Her milian Oral Tablet 00 90 tab, 2 [Aricept] Refill(s), Pharmacy: [facility], 167.64, cm, 11/24/20 9:50:00 CDT, Height, 100, kg, 11/24/20 9:50:00 CDT, Weight Donepezil Yes 10 mg = 1 Mem oria hydrochlori 3-19 tab, PO, l de 10 MG 19:04: Bedtime, # Her milian Oral Tablet 00 90 tab, 2 [Aricept] Refill(s), Pharmacy: [facility], 167.64, cm, 05/22/20 13:43:00 CDT, Height, 101.364, kg, 05/22/20 13:43:00 CDT, Weight Pen Goode Pen Goode 2019-03 No QD Pen 32G x 4 mm 32G x 4 mm 2-16 Goode 03/11" 03/11" 00:00: 32G x 4 mm 00 03/11" Pen Goode Pen Goode 2019-03 No QD Pen 32G x 4 mm 32G x 4 mm 2-16 Goode 03/11" 00:00: 32G x 4 mm 00 03/11" Pen Goode Pen Goode 2019-03 No QD Pen 32G x 4 mm 32G x 4 mm 2-16 Goode 03/11" 00:00: 32G x 4 mm 00 03/11" Pen Goode Pen Goode 2019-03 No QD Pen 32G x 4 mm 32G x 4 mm 2-16 Goode 03/11" 00:00: 32G x 4 mm 00 03/11" Pen Goode Pen Goode 2019-03 No QD Pen 32G x 4 mm 32G x 4 mm 2-16 Goode 03/11" 00:00: 32G x 4 mm 00 03/11" Pen Goode Pen Goode 2019-03 No QD Pen 32G x 4 mm 32G x 4 mm 2-16 Goode 03/11" 00:00: 32G x 4 mm 00 03/11" Donepezil 2019-03 Yes 10 mg = 1 Mem oria hydrochlori 1-20 tab, PO, l de 10 MG 20:33: Bedtime, # Her milian Oral Tablet 00 90 tab, 2 [Aricept] Refill(s), Pharmacy: [facility], 177.8, cm, 01/24/20 14:05:00 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, Height, 96.818, kg, 01/24/20 14:05:00 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, Weight Donepezil 2019-03 Yes 5 mg = 1 [place] hydrochlori 0-09 tab, PO, l de 5 MG 15:02: Bedtime, # Herm nasir Oral Tablet 00 90 tab, 1 [Aricept] Refill(s), Pharmacy: [facility], 167.64, cm, 12/13/19 9:30:00 CDT, Height, 97.727, kg, 12/13/19 9:30:00 CDT, Weight Amlodipine 2019-0 Yes 20 mg, PO, M emoria 9-16 Daily, 0 l 14:45: Refill(s) David 00 clonazePAM 2020-0 Yes 0.5 mg = 1 M emoria 0.5 mg oral 9-16 tab, PO, l tablet 14:45: BID, PRN David 00 Anxiety, 0 Refill(s) azilsartan 2020-0 Yes 80 mg = 1 Me moria medoxomil 9-16 tab, PO, l 80 MG Oral 14:45: Daily, # Her milian Tablet 00 30 tab, 3 [Edarbi] Refill(s) Metformin 2020-0 Yes 500 mg = 1 Me moria hydrochlori 9-16 tab, PO, l de 500 MG 14:45: BID-Meals, [place] Oral Tablet 00 # 30 tab, 0 Refill(s) Myrbetriq 2020-0 Yes 25 mg, PO, Me moria 9-16 Daily, 0 l 14:45: Refill(s) [place] tamsulosin 2020-0 Yes 0.4 mg, [place] 9-16 PO, Daily, l 14:45: 0 [place] 00 Refill(s) venlafaxine 2020-0 Yes 150 mg, Mem oria extended 9-16 PO, Daily, l release 14:45: 0 [place] Refill(s) icosapent 2020-0 Yes 2 gm = 2 [place] ethyl 1000 9-16 cap, PO, l MG Oral 14:45: BID, 0 [place] Capsule 00 Refill(s) [Vascepa] gabapentin 2019-0 Yes 300 mg = 1 M emoria 300 MG Oral 9-16 cap, PO, l Capsule 14:45: Daily, 0 [place] 00 Refill(s) amLODIPine 2020-0 Yes 5 mg, PO, Me moria 9-16 Daily, 0 l 14:45: Refill(s) [place] 00 atorvastati 2019-0 Yes 80 mg = 1 M emoria n 80 mg 9-16 tab, PO, l oral tablet 14:45: Daily, 0 [place] 00 Refill(s) Levemir 2020-0 Yes SUB-Q, 0 Memori a FlexPen 9-16 Refill(s) l 14:45: [place] 00 montelukast 2020-0 Yes 10 mg = 1 M emoria 10 mg oral 9-16 tab, PO, l tablet 14:45: BID, 0 [place] 00 Refill(s) Atorvastati Atorvastati No 1{table QD Atorvastat n Calcium n Calcium t} in Calcium 80 MG 80 MG 80 MG Probiotic Probiotic No Probiotic Venlafaxine Venlafaxine No 1{capsu QD Venlafaxin HCl ER 150 HCl ER 150 le_with e HCl ER MG MG _food} 150 MG FLUoxetine FLUoxetine No FLUoxetine HCl 20 MG HCl 20 MG HCl 20 MG Montelukast Montelukast No 1{table QD Montelukas Sodium 10 Sodium 10 t} t Sodium MG MG 10 MG Levemir Levemir No BID Levemir FlexTouch FlexTouch FlexTouch 100 UNIT/ML 100 UNIT/ML 100 UNIT/ML Memantine Memantine No 1{table QD Memantine HCl 5 MG HCl 5 MG t} HCl 5 MG Accupril 10 Accupril 10 No 1{table QD Accupril MG MG t} 10 MG FreeStyle FreeStyle No FreeStyle Lite Test - Lite Test - Lite Test - Quinapril Quinapril No 1{table QD Quinapril HCl 10 MG HCl 10 MG t} HCl 10 MG Lancets - Lancets - No BID Lancets - Centrum Centrum No Centrum Silver - Silver - Silver - Glucose Glucose No Glucose testing testing testing strips n/s strips n/s strips n/s Levemir Levemir No BID Levemir FlexTouch FlexTouch FlexTouch 100 UNIT/ML 100 UNIT/ML 100 UNIT/ML Atorvastati Atorvastati No 1{table QD Atorvastat n Calcium n Calcium t} in Calcium 80 MG 80 MG 80 MG Probiotic Probiotic No Probiotic Montelukast Montelukast No 1{table QD Montelukas Sodium 10 Sodium 10 t} t Sodium MG MG 10 MG ALPRAZolam ALPRAZolam No 1{table ALPRAZolam 0.5 MG 0.5 MG t} 0.5 MG amLODIPine amLODIPine No 1{table QD amLODIPine Besylate 10 Besylate 10 t} Besylate MG MG 10 MG Losartan Losartan No 1{table QD Losartan Potassium-H Potassium-H t} Potassium- CTZ 100-25 CTZ 100-25 HCTZ MG MG 100-25 MG Magnesium Magnesium No Magnesium Venlafaxine Venlafaxine No QD Venlafaxin HCl ER 150 HCl ER 150 e HCl ER MG MG 150 MG Donezepil Donezepil No Donezepil HCl-10 mg HCl-10 mg HCl-10 mg FreeStyle FreeStyle No FreeStyle Lite - Lite - Lite - Pantoprazol Pantoprazol No 1{table QD Pantoprazo e Sodium 40 e Sodium 40 t} le Sodium MG MG 40 MG Ramipril Ramipril No 1{capsu QD Ramipril 2.5 MG 2.5 MG le} 2.5 MG Calcium Calcium No Calcium Pen Goode Pen Goode No Pen 31G X 5 MM 31G X 5 MM Goode 31G X 5 MM Lancets - Lancets - No BID Lancets - Centrum Centrum No Centrum Silver - Silver - Silver - Glucose Glucose No Glucose testing testing testing strips n/s strips n/s strips n/s Levemir Levemir No BID Levemir FlexTouch FlexTouch FlexTouch 100 UNIT/ML 100 UNIT/ML 100 UNIT/ML Atorvastati Atorvastati No 1{table QD Atorvastat n Calcium n Calcium t} in Calcium 80 MG 80 MG 80 MG Probiotic Probiotic No Probiotic Montelukast Montelukast No 1{table QD Montelukas Sodium 10 Sodium 10 t} t Sodium MG MG 10 MG ALPRAZolam ALPRAZolam No 1{table ALPRAZolam 0.5 MG 0.5 MG t} 0.5 MG amLODIPine amLODIPine No 1{table QD amLODIPine Besylate 10 Besylate 10 t} Besylate MG MG 10 MG Losartan Losartan No 1{table QD Losartan Potassium-H Potassium-H t} Potassium- CTZ 100-25 CTZ 100-25 HCTZ MG MG 100-25 MG Magnesium Magnesium No Magnesium Venlafaxine Venlafaxine No QD Venlafaxin HCl ER 150 HCl ER 150 e HCl ER MG MG 150 MG Donezepil Donezepil No Donezepil HCl-10 mg HCl-10 mg HCl-10 mg FreeStyle FreeStyle No FreeStyle Lite - Lite - Lite - Pantoprazol Pantoprazol No 1{table QD Pantoprazo e Sodium 40 e Sodium 40 t} le Sodium MG MG 40 MG Ramipril Ramipril No 1{capsu QD Ramipril 2.5 MG 2.5 MG le} 2.5 MG Calcium Calcium No Calcium Pen Goode Pen Goode No Pen 31G X 5 MM 31G X 5 MM Goode 31G X 5 MM Lancets - Lancets - No BID Lancets - Centrum Centrum No Centrum Silver - Silver - Silver - Glucose Glucose No Glucose testing testing testing strips n/s strips n/s strips n/s Levemir Levemir No BID Levemir FlexTouch FlexTouch FlexTouch 100 UNIT/ML 100 UNIT/ML 100 UNIT/ML Atorvastati Atorvastati No 1{table QD Atorvastat n Calcium n Calcium t} in Calcium 80 MG 80 MG 80 MG Probiotic Probiotic No Probiotic Montelukast Montelukast No 1{table QD Montelukas Sodium 10 Sodium 10 t} t Sodium MG MG 10 MG ALPRAZolam ALPRAZolam No 1{table ALPRAZolam 0.5 MG 0.5 MG t} 0.5 MG amLODIPine amLODIPine No 1{table QD amLODIPine Besylate 10 Besylate 10 t} Besylate MG MG 10 MG Losartan Losartan No 1{table QD Losartan Potassium-H Potassium-H t} Potassium- CTZ 100-25 CTZ 100-25 HCTZ MG MG 100-25 MG Magnesium Magnesium No Magnesium Venlafaxine Venlafaxine No QD Venlafaxin HCl ER 150 HCl ER 150 e HCl ER MG MG 150 MG Donezepil Donezepil No Donezepil HCl-10 mg HCl-10 mg HCl-10 mg FreeStyle FreeStyle No FreeStyle Lite - Lite - Lite - Pantoprazol Pantoprazol No 1{table QD Pantoprazo e Sodium 40 e Sodium 40 t} le Sodium MG MG 40 MG Ramipril Ramipril No 1{capsu QD Ramipril 2.5 MG 2.5 MG le} 2.5 MG Calcium Calcium No Calcium Pen Goode Pen Goode No Pen 31G X 5 MM 31G X 5 MM Goode 31G X 5 MM ALPRAZolam ALPRAZolam No 1{table ALPRAZolam 0.5 MG 0.5 MG t} 0.5 MG Centrum Centrum No Centrum Silver - Silver - Silver - Losartan Losartan No 1{table QD Losartan Potassium-H Potassium-H t} Potassium- CTZ 100-25 CTZ 100-25 HCTZ MG MG 100-25 MG Donezepil Donezepil No Donezepil HCl-10 mg HCl-10 mg HCl-10 mg Levemir Levemir No BID Levemir FlexTouch FlexTouch FlexTouch 100 UNIT/ML 100 UNIT/ML 100 UNIT/ML Carvedilol Carvedilol No 1{table BID Carvedilol 6.25 MG 6.25 MG t_with_ 6.25 MG food} FreeStyle FreeStyle No FreeStyle Lite - Lite - Lite - Probiotic Probiotic No Probiotic Calcium Calcium No Calcium Lancets - Lancets - No BID Lancets - Donepezil Donepezil No 1{table QD Donepezil HCl 5 MG HCl 5 MG t_at_be HCl 5 MG dtime} Magnesium Magnesium No Magnesium Pantoprazol Pantoprazol No 1{table QD Pantoprazo e Sodium 40 e Sodium 40 t} le Sodium MG MG 40 MG Accupril 10 Accupril 10 No 1{table QD Accupril MG MG t} 10 MG Pen Goode Pen Goode No Pen 31G X 5 MM 31G X 5 MM Goode 31G X 5 MM Glucose Glucose No Glucose testing testing testing strips n/s strips n/s strips n/s Ramipril Ramipril No 1{capsu QD Ramipril 2.5 MG 2.5 MG le} 2.5 MG Montelukast Montelukast No 1{table QD Montelukas Sodium 10 Sodium 10 t} t Sodium MG MG 10 MG Atorvastati Atorvastati No 1{table QD Atorvastat n Calcium n Calcium t} in Calcium 80 MG 80 MG 80 MG Venlafaxine Venlafaxine No QD Venlafaxin HCl ER 150 HCl ER 150 e HCl ER MG MG 150 MG amLODIPine amLODIPine No 1{table QD amLODIPine Besylate 10 Besylate 10 t} Besylate MG MG 10 MG ALPRAZolam ALPRAZolam No 1{table ALPRAZolam 0.5 MG 0.5 MG t} 0.5 MG Centrum Centrum No Centrum Silver - Silver - Silver - Losartan Losartan No 1{table QD Losartan Potassium-H Potassium-H t} Potassium- CTZ 100-25 CTZ 100-25 HCTZ MG MG 100-25 MG Donezepil Donezepil No Donezepil HCl-10 mg HCl-10 mg HCl-10 mg Levemir Levemir No BID Levemir FlexTouch FlexTouch FlexTouch 100 UNIT/ML 100 UNIT/ML 100 UNIT/ML Carvedilol Carvedilol No 1{table BID Carvedilol 6.25 MG 6.25 MG t_with_ 6.25 MG food} FreeStyle FreeStyle No FreeStyle Lite - Lite - Lite - Probiotic Probiotic No Probiotic Calcium Calcium No Calcium Lancets - Lancets - No BID Lancets - Donepezil Donepezil No 1{table QD Donepezil HCl 5 MG HCl 5 MG t_at_be HCl 5 MG dtime} Magnesium Magnesium No Magnesium Pantoprazol Pantoprazol No 1{table QD Pantoprazo e Sodium 40 e Sodium 40 t} le Sodium MG MG 40 MG Accupril 10 Accupril 10 No 1{table QD Accupril MG MG t} 10 MG Pen Goode Pen Goode No Pen 31G X 5 MM 31G X 5 MM Goode 31G X 5 MM Glucose Glucose No Glucose testing testing testing strips n/s strips n/s strips n/s Ramipril Ramipril No 1{capsu QD Ramipril 2.5 MG 2.5 MG le} 2.5 MG Montelukast Montelukast No 1{table QD Montelukas Sodium 10 Sodium 10 t} t Sodium MG MG 10 MG Atorvastati Atorvastati No 1{table QD Atorvastat n Calcium n Calcium t} in Calcium 80 MG 80 MG 80 MG Venlafaxine Venlafaxine No QD Venlafaxin HCl ER 150 HCl ER 150 e HCl ER MG MG 150 MG amLODIPine amLODIPine No 1{table QD amLODIPine Besylate 10 Besylate 10 t} Besylate MG MG 10 MG ALPRAZolam ALPRAZolam No 1{table ALPRAZolam 0.5 MG 0.5 MG t} 0.5 MG Centrum Centrum No Centrum Silver - Silver - Silver - Losartan Losartan No 1{table QD Losartan Potassium-H Potassium-H t} Potassium- CTZ 100-25 CTZ 100-25 HCTZ MG MG 100-25 MG Donezepil Donezepil No Donezepil HCl-10 mg HCl-10 mg HCl-10 mg Levemir Levemir No BID Levemir FlexTouch FlexTouch FlexTouch 100 UNIT/ML 100 UNIT/ML 100 UNIT/ML Carvedilol Carvedilol No 1{table BID Carvedilol 6.25 MG 6.25 MG t_with_ 6.25 MG food} FreeStyle FreeStyle No FreeStyle Lite - Lite - Lite - Probiotic Probiotic No Probiotic Calcium Calcium No Calcium Lancets - Lancets - No BID Lancets - Donepezil Donepezil No 1{table QD Donepezil HCl 5 MG HCl 5 MG t_at_be HCl 5 MG dtime} Magnesium Magnesium No Magnesium Pantoprazol Pantoprazol No 1{table QD Pantoprazo e Sodium 40 e Sodium 40 t} le Sodium MG MG 40 MG Accupril 10 Accupril 10 No 1{table QD Accupril MG MG t} 10 MG Pen Goode Pen Goode No Pen 31G X 5 MM 31G X 5 MM Goode 31G X 5 MM Glucose Glucose No Glucose testing testing testing strips n/s strips n/s strips n/s Ramipril Ramipril No 1{capsu QD Ramipril 2.5 MG 2.5 MG le} 2.5 MG Montelukast Montelukast No 1{table QD Montelukas Sodium 10 Sodium 10 t} t Sodium MG MG 10 MG Atorvastati Atorvastati No 1{table QD Atorvastat n Calcium n Calcium t} in Calcium 80 MG 80 MG 80 MG Venlafaxine Venlafaxine No QD Venlafaxin HCl ER 150 HCl ER 150 e HCl ER MG MG 150 MG amLODIPine amLODIPine No 1{table QD amLODIPine Besylate 10 Besylate 10 t} Besylate MG MG 10 MG Donepezil Donepezil No 1{table QD Donepezil HCl 5 MG HCl 5 MG t_at_be HCl 5 MG dtime} Centrum Centrum No Centrum Silver - Silver - Silver - Atorvastati Atorvastati No 1{table QD Atorvastat n Calcium n Calcium t} in Calcium 80 MG 80 MG 80 MG Probiotic Probiotic No Probiotic Carvedilol Carvedilol No 1{table BID Carvedilol 6.25 MG 6.25 MG t_with_ 6.25 MG food} amLODIPine amLODIPine No 1{table BID amLODIPine Besylate 5 Besylate 5 t} Besylate 5 MG MG MG Levemir Levemir No BID Levemir FlexTouch FlexTouch FlexTouch 100 UNIT/ML 100 UNIT/ML 100 UNIT/ML Tamsulosin Tamsulosin No 1{capsu QD Tamsulosin HCl 0.4 MG HCl 0.4 MG le} HCl 0.4 MG Pen Goode Pen Goode No Pen 31G X 5 MM 31G X 5 MM Goode 31G X 5 MM Montelukast Montelukast No 1{table QD Montelukas Sodium 10 Sodium 10 t} t Sodium MG MG 10 MG Pantoprazol Pantoprazol No 1{table QD Pantoprazo e Sodium 40 e Sodium 40 t} le Sodium MG MG 40 MG ALPRAZolam ALPRAZolam No 1{table ALPRAZolam 0.5 MG 0.5 MG t} 0.5 MG Myrbetriq Myrbetriq No 1{table QD Myrbetriq 25 MG 25 MG t} 25 MG Accupril 10 Accupril 10 No 1{table QD Accupril MG MG t} 10 MG Montelukast Montelukast No 1{table QD Montelukas Sodium 10 Sodium 10 t} t Sodium MG MG 10 MG Carvedilol Carvedilol No 1{table BID Carvedilol 6.25 MG 6.25 MG t_with_ 6.25 MG food} Accupril 10 Accupril 10 No 1{table QD Accupril MG MG t} 10 MG Donepezil Donepezil No 1{table QD Donepezil HCl 5 MG HCl 5 MG t_at_be HCl 5 MG dtime} Pantoprazol Pantoprazol No 1{table QD Pantoprazo e Sodium 40 e Sodium 40 t} le Sodium MG MG 40 MG Levemir Levemir No BID Levemir FlexTouch FlexTouch FlexTouch 100 UNIT/ML 100 UNIT/ML 100 UNIT/ML amLODIPine amLODIPine No 1{table BID amLODIPine Besylate 5 Besylate 5 t} Besylate 5 MG MG MG Pen Goode Pen Goode No Pen 31G X 5 MM 31G X 5 MM Goode 31G X 5 MM Probiotic Probiotic No Probiotic Myrbetriq Myrbetriq No 1{table QD Myrbetriq 25 MG 25 MG t} 25 MG ALPRAZolam ALPRAZolam No 1{table ALPRAZolam 0.5 MG 0.5 MG t} 0.5 MG Centrum Centrum No Centrum Silver - Silver - Silver - Tamsulosin Tamsulosin No 1{capsu QD Tamsulosin HCl 0.4 MG HCl 0.4 MG le} HCl 0.4 MG FreeStyle FreeStyle No FreeStyle Lite Test - Lite Test - Lite Test - Atorvastati Atorvastati No 1{table QD Atorvastat n Calcium n Calcium t} in Calcium 80 MG 80 MG 80 MG Montelukast Montelukast No 1{table QD Montelukas Sodium 10 Sodium 10 t} t Sodium MG MG 10 MG Carvedilol Carvedilol No 1{table BID Carvedilol 6.25 MG 6.25 MG t_with_ 6.25 MG food} Accupril 10 Accupril 10 No 1{table QD Accupril MG MG t} 10 MG Donepezil Donepezil No 1{table QD Donepezil HCl 5 MG HCl 5 MG t_at_be HCl 5 MG dtime} Pantoprazol Pantoprazol No 1{table QD Pantoprazo e Sodium 40 e Sodium 40 t} le Sodium MG MG 40 MG Pen Goode Pen Goode No Pen 31G X 5 MM 31G X 5 MM Goode 31G X 5 MM amLODIPine amLODIPine No 1{table BID amLODIPine Besylate 5 Besylate 5 t} Besylate 5 MG MG MG FreeStyle FreeStyle No FreeStyle Lite Test - Lite Test - Lite Test - Probiotic Probiotic No Probiotic Myrbetriq Myrbetriq No 1{table QD Myrbetriq 25 MG 25 MG t} 25 MG ALPRAZolam ALPRAZolam No 1{table ALPRAZolam 0.5 MG 0.5 MG t} 0.5 MG Centrum Centrum No Centrum Silver - Silver - Silver - Tamsulosin Tamsulosin No 1{capsu QD Tamsulosin HCl 0.4 MG HCl 0.4 MG le} HCl 0.4 MG Levemir Levemir No Levemir FlexTouch FlexTouch FlexTouch 100 UNIT/ML 100 UNIT/ML 100 UNIT/ML Atorvastati Atorvastati No 1{table QD Atorvastat n Calcium n Calcium t} in Calcium 80 MG 80 MG 80 MG Probiotic Probiotic No Probiotic Quinapril Quinapril No 1{table QD Quinapril HCl 10 MG HCl 10 MG t} HCl 10 MG FreeStyle FreeStyle No FreeStyle Lite Test - Lite Test - Lite Test - FLUoxetine FLUoxetine No 1{capsu QD FLUoxetine HCl 20 MG HCl 20 MG le} HCl 20 MG Venlafaxine Venlafaxine No 1{capsu QD Venlafaxin HCl ER 150 HCl ER 150 le_with e HCl ER MG MG _food} 150 MG Levemir Levemir No BID Levemir FlexTouch FlexTouch FlexTouch 100 UNIT/ML 100 UNIT/ML 100 UNIT/ML Levemir Levemir No Levemir FlexTouch FlexTouch FlexTouch 100 UNIT/ML 100 UNIT/ML 100 UNIT/ML Centrum Centrum No Centrum Silver - Silver - Silver - amLODIPine amLODIPine No 1{table BID amLODIPine Besylate 5 Besylate 5 t} Besylate 5 MG MG MG Memantine Memantine No 1{table QD Memantine HCl 5 MG HCl 5 MG t} HCl 5 MG Montelukast Montelukast No 1{table QD Montelukas Sodium 10 Sodium 10 t} t Sodium MG MG 10 MG Accupril 10 Accupril 10 No 1{table QD Accupril MG MG t} 10 MG Atorvastati Atorvastati No 1{table QD Atorvastat n Calcium n Calcium t} in Calcium 80 MG 80 MG 80 MG Tamsulosin Tamsulosin No 1{capsu QD Tamsulosin HCl 0.4 MG HCl 0.4 MG le} HCl 0.4 MG Donepezil Donepezil No 1{table QD Donepezil HCl 10 MG HCl 10 MG t_at_be HCl 10 MG dtime} Carvedilol Carvedilol No 1{table BID Carvedilol 6.25 MG 6.25 MG t_with_ 6.25 MG food} ALPRAZolam ALPRAZolam No 1{table ALPRAZolam 0.5 MG 0.5 MG t} 0.5 MG Pen Goode Pen Goode No Pen 31G X 5 MM 31G X 5 MM Goode 31G X 5 MM Myrbetriq Myrbetriq No 1{table QD Myrbetriq 25 MG 25 MG t} 25 MG Levemir Levemir No Levemir FlexTouch FlexTouch FlexTouch 100 UNIT/ML 100 UNIT/ML 100 UNIT/ML Levemir Levemir No BID Levemir FlexTouch FlexTouch FlexTouch 100 UNIT/ML 100 UNIT/ML 100 UNIT/ML Centrum Centrum No Centrum Silver - Silver - Silver - Venlafaxine Venlafaxine No 1{capsu QD Venlafaxin HCl ER 150 HCl ER 150 le_with e HCl ER MG MG _food} 150 MG Pen Goode Pen Goode No Pen 31G X 5 MM 31G X 5 MM Goode 31G X 5 MM amLODIPine amLODIPine No 1{table BID amLODIPine Besylate 5 Besylate 5 t} Besylate 5 MG MG MG Atorvastati Atorvastati No 1{table QD Atorvastat n Calcium n Calcium t} in Calcium 80 MG 80 MG 80 MG Memantine Memantine No 1{table QD Memantine HCl 5 MG HCl 5 MG t} HCl 5 MG Probiotic Probiotic No Probiotic FLUoxetine FLUoxetine No FLUoxetine HCl 20 MG HCl 20 MG HCl 20 MG Quinapril Quinapril No 1{table QD Quinapril HCl 10 MG HCl 10 MG t} HCl 10 MG Donepezil Donepezil No 1{table QD Donepezil HCl 10 MG HCl 10 MG t_at_be HCl 10 MG dtime} Montelukast Montelukast No 1{table QD Montelukas Sodium 10 Sodium 10 t} t Sodium MG MG 10 MG Accupril 10 Accupril 10 No 1{table QD Accupril MG MG t} 10 MG FreeStyle FreeStyle No FreeStyle Lite Test - Lite Test - Lite Test - Carvedilol Carvedilol No 1{table BID Carvedilol 6.25 MG 6.25 MG t_with_ 6.25 MG food} Levemir Levemir No Levemir FlexTouch FlexTouch FlexTouch 100 UNIT/ML 100 UNIT/ML 100 UNIT/ML Carvedilol Carvedilol No 1{table BID Carvedilol 6.25 MG 6.25 MG t_with_ 6.25 MG food} Centrum Centrum No Centrum Silver - Silver - Silver - Donepezil Donepezil No 1{table QD Donepezil HCl 10 MG HCl 10 MG t_at_be HCl 10 MG dtime} Pen Goode Pen Goode No Pen 31G X 5 MM 31G X 5 MM Goode 31G X 5 MM amLODIPine amLODIPine No 1{table BID amLODIPine Besylate 5 Besylate 5 t} Besylate 5 MG MG MG Atorvastati Atorvastati No 1{table QD Atorvastat n Calcium n Calcium t} in Calcium 80 MG 80 MG 80 MG Probiotic Probiotic No Probiotic Venlafaxine Venlafaxine No 1{capsu QD Venlafaxin HCl ER 150 HCl ER 150 le_with e HCl ER MG MG _food} 150 MG FLUoxetine FLUoxetine No FLUoxetine HCl 20 MG HCl 20 MG HCl 20 MG Montelukast Montelukast No 1{table QD Montelukas Sodium 10 Sodium 10 t} t Sodium MG MG 10 MG Levemir Levemir No BID Levemir FlexTouch FlexTouch FlexTouch 100 UNIT/ML 100 UNIT/ML 100 UNIT/ML Memantine Memantine No 1{table QD Memantine HCl 5 MG HCl 5 MG t} HCl 5 MG Accupril 10 Accupril 10 No 1{table QD Accupril MG MG t} 10 MG FreeStyle FreeStyle No FreeStyle Lite Test - Lite Test - Lite Test - Quinapril Quinapril No 1{table QD Quinapril HCl 10 MG HCl 10 MG t} HCl 10 MG Levemir Levemir No Levemir FlexTouch FlexTouch FlexTouch 100 UNIT/ML 100 UNIT/ML 100 UNIT/ML Carvedilol Carvedilol No 1{table BID Carvedilol 6.25 MG 6.25 MG t_with_ 6.25 MG food} Centrum Centrum No Centrum Silver - Silver - Silver - Donepezil Donepezil No 1{table QD Donepezil HCl 10 MG HCl 10 MG t_at_be HCl 10 MG dtime} Pen Goode Pen Goode No Pen 31G X 5 MM 31G X 5 MM Goode 31G X 5 MM amLODIPine amLODIPine No 1{table BID amLODIPine Besylate 5 Besylate 5 t} Besylate 5 MG MG MG Atorvastati Atorvastati No 1{table QD Atorvastat n Calcium n Calcium t} in Calcium 80 MG 80 MG 80 MG Probiotic Probiotic No Probiotic Venlafaxine Venlafaxine No 1{capsu QD Venlafaxin HCl ER 150 HCl ER 150 le_with e HCl ER MG MG _food} 150 MG FLUoxetine FLUoxetine No FLUoxetine HCl 20 MG HCl 20 MG HCl 20 MG Montelukast Montelukast No 1{table QD Montelukas Sodium 10 Sodium 10 t} t Sodium MG MG 10 MG Levemir Levemir No BID Levemir FlexTouch FlexTouch FlexTouch 100 UNIT/ML 100 UNIT/ML 100 UNIT/ML Memantine Memantine No 1{table QD Memantine HCl 5 MG HCl 5 MG t} HCl 5 MG Accupril 10 Accupril 10 No 1{table QD Accupril MG MG t} 10 MG FreeStyle FreeStyle No FreeStyle Lite Test - Lite Test - Lite Test - Quinapril Quinapril No 1{table QD Quinapril HCl 10 MG HCl 10 MG t} HCl 10 MG Levemir Levemir No Levemir FlexTouch FlexTouch FlexTouch 100 UNIT/ML 100 UNIT/ML 100 UNIT/ML Carvedilol Carvedilol No 1{table BID Carvedilol 6.25 MG 6.25 MG t_with_ 6.25 MG food} Centrum Centrum No Centrum Silver - Silver - Silver - Donepezil Donepezil No 1{table QD Donepezil HCl 10 MG HCl 10 MG t_at_be HCl 10 MG dtime} Pen Goode Pen Goode No Pen 31G X 5 MM 31G X 5 MM Goode 31G X 5 MM amLODIPine amLODIPine No 1{table BID amLODIPine Besylate 5 Besylate 5 t} Besylate 5 MG MG MG Atorvastati Atorvastati No 1{table QD Atorvastat n Calcium n Calcium t} in Calcium 80 MG 80 MG 80 MG Probiotic Probiotic No Probiotic Venlafaxine Venlafaxine No 1{capsu QD Venlafaxin HCl ER 150 HCl ER 150 le_with e HCl ER MG MG _food} 150 MG FLUoxetine FLUoxetine No FLUoxetine HCl 20 MG HCl 20 MG HCl 20 MG Montelukast Montelukast No 1{table QD Montelukas Sodium 10 Sodium 10 t} t Sodium MG MG 10 MG Levemir Levemir No BID Levemir FlexTouch FlexTouch FlexTouch 100 UNIT/ML 100 UNIT/ML 100 UNIT/ML Memantine Memantine No 1{table QD Memantine HCl 5 MG HCl 5 MG t} HCl 5 MG Accupril 10 Accupril 10 No 1{table QD Accupril MG MG t} 10 MG FreeStyle FreeStyle No FreeStyle Lite Test - Lite Test - Lite Test - Quinapril Quinapril No 1{table QD Quinapril HCl 10 MG HCl 10 MG t} HCl 10 MG Levemir Levemir No Levemir FlexTouch FlexTouch FlexTouch 100 UNIT/ML 100 UNIT/ML 100 UNIT/ML Tamsulosin Tamsulosin No 1{capsu QD Tamsulosin HCl 0.4 MG HCl 0.4 MG le} HCl 0.4 MG FreeStyle FreeStyle No FreeStyle Lite Test - Lite Test - Lite Test - Probiotic Probiotic No Probiotic Atorvastati Atorvastati No 1{table QD Atorvastat n Calcium n Calcium t} in Calcium 80 MG 80 MG 80 MG Pen Goode Pen Goode No Pen 31G X 5 MM 31G X 5 MM Goode 31G X 5 MM FLUoxetine FLUoxetine No 1{capsu QD FLUoxetine HCl 20 MG HCl 20 MG le} HCl 20 MG Donepezil Donepezil No 1{table QD Donepezil HCl 10 MG HCl 10 MG t_at_be HCl 10 MG dtime} Centrum Centrum No Centrum Silver - Silver - Silver - Venlafaxine Venlafaxine No 1{capsu QD Venlafaxin HCl ER 150 HCl ER 150 le_with e HCl ER MG MG _food} 150 MG Montelukast Montelukast No 1{table QD Montelukas Sodium 10 Sodium 10 t} t Sodium MG MG 10 MG Levemir Levemir No BID Levemir FlexTouch FlexTouch FlexTouch 100 UNIT/ML 100 UNIT/ML 100 UNIT/ML amLODIPine amLODIPine No 1{table BID amLODIPine Besylate 5 Besylate 5 t} Besylate 5 MG MG MG FLUoxetine FLUoxetine No FLUoxetine HCl 20 MG HCl 20 MG HCl 20 MG Carvedilol Carvedilol No 1{table BID Carvedilol 6.25 MG 6.25 MG t_with_ 6.25 MG food} Accupril 10 Accupril 10 No 1{table QD Accupril MG MG t} 10 MG Quinapril Quinapril No 1{table QD Quinapril HCl 10 MG HCl 10 MG t} HCl 10 MG Memantine Memantine No 1{table QD Memantine HCl 5 MG HCl 5 MG t} HCl 5 MG Atorvastati Atorvastati No 1{table QD Atorvastat n Calcium n Calcium t} in Calcium 40 MG 40 MG 40 MG Myrbetriq Myrbetriq No 1{table QD Myrbetriq 25 MG 25 MG t} 25 MG Levemir Levemir No Levemir FlexTouch FlexTouch FlexTouch 100 UNIT/ML 100 UNIT/ML 100 UNIT/ML Tamsulosin Tamsulosin No 1{capsu QD Tamsulosin HCl 0.4 MG HCl 0.4 MG le} HCl 0.4 MG FreeStyle FreeStyle No FreeStyle Lite Test - Lite Test - Lite Test - Probiotic Probiotic No Probiotic Atorvastati Atorvastati No 1{table QD Atorvastat n Calcium n Calcium t} in Calcium 80 MG 80 MG 80 MG Pen Goode Pen Goode No Pen 31G X 5 MM 31G X 5 MM Goode 31G X 5 MM FLUoxetine FLUoxetine No 1{capsu QD FLUoxetine HCl 20 MG HCl 20 MG le} HCl 20 MG Levemir Levemir No Levemir FlexTouch FlexTouch FlexTouch 100 UNIT/ML 100 UNIT/ML 100 UNIT/ML Donepezil Donepezil No 1{table QD Donepezil HCl 10 MG HCl 10 MG t_at_be HCl 10 MG dtime} Centrum Centrum No Centrum Silver - Silver - Silver - Venlafaxine Venlafaxine No 1{capsu QD Venlafaxin HCl ER 150 HCl ER 150 le_with e HCl ER MG MG _food} 150 MG Montelukast Montelukast No 1{table QD Montelukas Sodium 10 Sodium 10 t} t Sodium MG MG 10 MG Levemir Levemir No BID Levemir FlexTouch FlexTouch FlexTouch 100 UNIT/ML 100 UNIT/ML 100 UNIT/ML amLODIPine amLODIPine No 1{table BID amLODIPine Besylate 5 Besylate 5 t} Besylate 5 MG MG MG FLUoxetine FLUoxetine No FLUoxetine HCl 20 MG HCl 20 MG HCl 20 MG Carvedilol Carvedilol No 1{table BID Carvedilol 6.25 MG 6.25 MG t_with_ 6.25 MG food} Accupril 10 Accupril 10 No 1{table QD Accupril MG MG t} 10 MG Quinapril Quinapril No 1{table QD Quinapril HCl 10 MG HCl 10 MG t} HCl 10 MG Levemir Levemir No BID Levemir FlexTouch FlexTouch FlexTouch 100 UNIT/ML 100 UNIT/ML 100 UNIT/ML Memantine Memantine No 1{table QD Memantine HCl 5 MG HCl 5 MG t} HCl 5 MG Atorvastati Atorvastati No 1{table QD Atorvastat n Calcium n Calcium t} in Calcium 40 MG 40 MG 40 MG Myrbetriq Myrbetriq No 1{table QD Myrbetriq 25 MG 25 MG t} 25 MG Centrum Centrum No Centrum Silver - Silver - Silver - FreeStyle FreeStyle No FreeStyle Lite Test - Lite Test - Lite Test - Tamsulosin Tamsulosin No 1{capsu QD Tamsulosin HCl 0.4 MG HCl 0.4 MG le} HCl 0.4 MG Atorvastati Atorvastati No 1{table QD Atorvastat n Calcium n Calcium t} in Calcium 80 MG 80 MG 80 MG Probiotic Probiotic No Probiotic Levemir Levemir No Levemir FlexTouch FlexTouch FlexTouch 100 UNIT/ML 100 UNIT/ML 100 UNIT/ML Venlafaxine Venlafaxine No 1{capsu QD Venlafaxin HCl ER 150 HCl ER 150 le_with e HCl ER MG MG _food} 150 MG Pen Goode Pen Goode No Pen 31G X 5 MM 31G X 5 MM Goode 31G X 5 MM FLUoxetine FLUoxetine No 1{capsu QD FLUoxetine HCl 20 MG HCl 20 MG le} HCl 20 MG Donepezil Donepezil No 1{table QD Donepezil HCl 10 MG HCl 10 MG t_at_be HCl 10 MG dtime} Centrum Centrum No Centrum Silver - Silver - Silver - Venlafaxine Venlafaxine No 1{capsu QD Venlafaxin HCl ER 150 HCl ER 150 le_with e HCl ER MG MG _food} 150 MG Montelukast Montelukast No 1{table QD Montelukas Sodium 10 Sodium 10 t} t Sodium MG MG 10 MG Levemir Levemir No BID Levemir FlexTouch FlexTouch FlexTouch 100 UNIT/ML 100 UNIT/ML 100 UNIT/ML amLODIPine amLODIPine No 1{table BID amLODIPine Besylate 5 Besylate 5 t} Besylate 5 MG MG MG FLUoxetine FLUoxetine No FLUoxetine HCl 20 MG HCl 20 MG HCl 20 MG Pen Goode Pen Goode No Pen 31G X 5 MM 31G X 5 MM Goode 31G X 5 MM Carvedilol Carvedilol No 1{table BID Carvedilol 6.25 MG 6.25 MG t_with_ 6.25 MG food} Accupril 10 Accupril 10 No 1{table QD Accupril MG MG t} 10 MG Quinapril Quinapril No 1{table QD Quinapril HCl 10 MG HCl 10 MG t} HCl 10 MG Memantine Memantine No 1{table QD Memantine HCl 5 MG HCl 5 MG t} HCl 5 MG Atorvastati Atorvastati No 1{table QD Atorvastat n Calcium n Calcium t} in Calcium 40 MG 40 MG 40 MG Myrbetriq Myrbetriq No 1{table QD Myrbetriq 25 MG 25 MG t} 25 MG amLODIPine amLODIPine No 1{table BID amLODIPine Besylate 5 Besylate 5 t} Besylate 5 MG MG MG Atorvastati Atorvastati No 1{table QD Atorvastat n Calcium n Calcium t} in Calcium 80 MG 80 MG 80 MG Memantine Memantine No 1{table QD Memantine HCl 5 MG HCl 5 MG t} HCl 5 MG Probiotic Probiotic No Probiotic FLUoxetine FLUoxetine No FLUoxetine HCl 20 MG HCl 20 MG HCl 20 MG Quinapril Quinapril No 1{table QD Quinapril HCl 10 MG HCl 10 MG t} HCl 10 MG Donepezil Donepezil No 1{table QD Donepezil HCl 10 MG HCl 10 MG t_at_be HCl 10 MG dtime} Montelukast Montelukast No 1{table QD Montelukas Sodium 10 Sodium 10 t} t Sodium MG MG 10 MG Accupril 10 Accupril 10 No 1{table QD Accupril MG MG t} 10 MG FreeStyle FreeStyle No FreeStyle Lite Test - Lite Test - Lite Test - Carvedilol Carvedilol No 1{table BID Carvedilol 6.25 MG 6.25 MG t_with_ 6.25 MG food} Levemir Levemir No Levemir FlexTouch FlexTouch FlexTouch 100 UNIT/ML 100 UNIT/ML 100 UNIT/ML Carvedilol Carvedilol No 1{table BID Carvedilol 6.25 MG 6.25 MG t_with_ 6.25 MG food} Centrum Centrum No Centrum Silver - Silver - Silver - Donepezil Donepezil No 1{table QD Donepezil HCl 10 MG HCl 10 MG t_at_be HCl 10 MG dtime} Pen Goode Pen Goode No Pen 31G X 5 MM 31G X 5 MM Goode 31G X 5 MM amLODIPine amLODIPine No 1{table BID amLODIPine Besylate 5 Besylate 5 t} Besylate 5 MG MG MG Tamsulosin Tamsulosin 3- No 2{capsu QD Tamsulosin HCl 0.4 MG HCl 0.4 MG 11-12 les} HCl 0.4 MG 00:00 :00 Tamsulosin Tamsulosin 3- No 2{capsu QD Tamsulosin HCl 0.4 MG HCl 0.4 MG 11-12 les} HCl 0.4 MG 00:00 :00 Tamsulosin Tamsulosin 3- No 2{capsu QD Tamsulosin HCl 0.4 MG HCl 0.4 MG 11-12 les} HCl 0.4 MG 00:00 :00 Tamsulosin Tamsulosin 3- No 2{capsu QD Tamsulosin HCl 0.4 MG HCl 0.4 MG 11-12 les} HCl 0.4 MG 00:00 :00 Tamsulosin Tamsulosin 3- No 2{capsu QD Tamsulosin HCl 0.4 MG HCl 0.4 MG 11-12 les} HCl 0.4 MG 00:00 :00 Tamsulosin Tamsulosin 3- No 2{capsu QD Tamsulosin HCl 0.4 MG HCl 0.4 MG 11-12 les} HCl 0.4 MG 00:00 :00 Tamsulosin Tamsulosin 2- No 1{capsu QD Tamsulosin HCl 0.4 MG HCl 0.4 MG 18 le} HCl 0.4 MG 00:00 :00 Myrbetriq Myrbetriq 2- No 1{table QD Myrbetriq 25 MG 25 MG 12-18 t} 25 MG 00:00 :00 Tamsulosin Tamsulosin 2021- No 1{capsu QD Tamsulosin HCl 0.4 MG HCl 0.4 MG 12-18 le} HCl 0.4 MG 00:00 :00 Myrbetriq Myrbetriq 2- No 1{table QD Myrbetriq 25 MG 25 MG 12-18 t} 25 MG 00:00 :00 Tamsulosin Tamsulosin 2- No 1{capsu QD Tamsulosin HCl 0.4 MG HCl 0.4 MG 12-18 le} HCl 0.4 MG 00:00 :00 Myrbetriq Myrbetriq 2- No 1{table QD Myrbetriq 25 MG 25 MG 12-18 t} 25 MG 00:00 :00 Tamsulosin Tamsulosin 2- No 1{capsu QD Tamsulosin HCl 0.4 MG HCl 0.4 MG 12-18 le} HCl 0.4 MG 00:00 :00 Myrbetriq Myrbetriq 2- No 1{table QD Myrbetriq 25 MG 25 MG 12-18 t} 25 MG 00:00 :00 Tamsulosin Tamsulosin 2021- No 1{capsu QD Tamsulosin HCl 0.4 MG HCl 0.4 MG 12-18 le} HCl 0.4 MG 00:00 :00 Myrbetriq Myrbetriq 2- No 1{table QD Myrbetriq 25 MG 25 MG 12-18 t} 25 MG 00:00 :00 Tamsulosin Tamsulosin 2- No 1{capsu QD Tamsulosin HCl 0.4 MG HCl 0.4 MG 12-18 le} HCl 0.4 MG 00:00 :00 Myrbetriq Myrbetriq 2021- No 1{table QD Myrbetriq 25 MG 25 MG 12-18 t} 25 MG 00:00 :00 Immunizations Ordered Immunization Filled Immunization Date Status Commen ts Source Name Name FLUZONE HIGH DOSE FLUZONE HIGH DOSE 2022-01-31 [facility] OVER [facility] 13:44:[facility] - [facility] FLUZONE HIGH DOSE FLUZONE HIGH DOSE 2022-01-31 [facility]pleted [facility] OVER 65 OVER 65 13:44:00 - [facility] FLUZONE HIGH DOSE FLUZONE HIGH DOSE 2022-01-31 [facility]pleted [facility] OVER 65 OVER 65 13:44:00 - [facility] Fluzone Fluzone 2021-02-03 [facility]pleted [facility] 09:56:00 - [facility] Fluzone Fluzone 2021-02-03 [facility]pleted [facility] 09:56:00 - [facility] Fluzone Fluzone 2021-02-03 [facility]pleted [facility] 09:56:00 - [facility] Fluzone Fluzone 2021-02-03 [facility] 09:56:00 - [facility] Fluzone Fluzone 2021-02-03 [facility]pleted [facility] 09:56:00 - [facility] Fluzone Fluzone 2021-02-03 [facility]pleted [facility] 09:56:00 - [facility] Fluzone Fluzone 2021-02-03 [facility]pleted [facility] 09:56:00 - [facility] Fluzone Fluzone 2021-02-03 [facility]pleted [facility] 09:56:00 - [facility] Fluzone Fluzone 2021-02-03 [facility]pleted [facility] 09:56:00 - [facility] Fluzone Fluzone 2021-02-03 [facility]pleted [facility] 09:56:00 - [facility] Fluzone Fluzone 2021-02-03 [facility]pleted [facility] 09:56:00 - [facility] Fluzone Fluzone 2021-02-03 [facility]pleted [facility] 09:56:00 - [facility] Fluzone Fluzone 2021-02-03 [facility]pleted [facility] 09:56:00 - [facility] Fluzone Fluzone 2021-02-03 [facility]pleted [facility] 09:56:00 - [facility] Fluzone Fluzone 2021-02-03 [facility]pleted [facility] 09:56:00 - [facility] Fluzone Fluzone 2021-02-03 [facility]pleted [facility] 09:56:00 - [facility] Fluzone Fluzone 2021-02-03 [facility]pleted [facility] 09:56:00 - [facility] Fluzone Fluzone 2021-02-03 Completed [facility] 09:56:00 - [facility] Fluzone Fluzone 2021-02-03 Completed [facility] 09:56:00 - [facility] Vital Signs Vital Name Observation Time Observation Value Comments Source height 2022-01-31 13:20:00 66.5 [in_i] [facility] weight 2022-01-31 13:20:00 157.7 [lb_av] Common [facility] temperature 2022-01-31 13:20:00 97.5 [degF] Common [facility] bmi 2022-01-31 13:20:00 25.07 kg/m2 Common [facility] oximetry 2022-01-31 13:20:00 96 % [facility] respiratory rate 2022-01-31 13:20:00 17 /min Comm on [facility] blood pressure 2022-01-31 13:20:00 137 mm[Hg] [facility] blood pressure 2022-01-31 13:20:00 70 mm[Hg] [facility] diastolic [facility] height 2021-11-17 16:30:00 66.5 [in_i] Common [facility] weight 2021-11-17 16:30:00 161 [lb_av] [facility] temperature 2021-11-17 16:30:00 99.0 [degF] Common [facility] bmi 2021-11-17 16:30:00 25.59 kg/m2 [facility] oximetry 2021-11-17 16:30:00 97 % [facility] respiratory rate 2021-11-17 16:30:00 16 /min Comm on [facility] blood pressure 2021-11-17 16:30:00 138 mm[Hg] [facility] blood pressure 2021-11-17 16:30:00 80 mm[Hg] [facility] height 2021-10-27 13:50:00 66.5 [in_i] Common [facility] weight 2021-10-27 13:50:00 161 [lb_av] Common [facility] temperature 2021-10-27 13:50:00 97.9 [degF] Common [facility] bmi 2021-10-27 13:50:00 25.59 kg/m2 Common S pirit [facility] oximetry 2021-10-27 13:50:00 99 % Common [facility] respiratory rate 2021-10-27 13:50:00 16 /min Comm on [facility] blood pressure 2021-10-27 13:50:00 138 mm[Hg] [facility] blood pressure 2021-10-27 13:50:00 88 mm[Hg] [facility] diastolic [facility] height 2021-08-20 09:40:00 70.5 [in_i] [facility] weight 2021-08-20 09:40:00 175.0 [lb_av] [facility] temperature 2021-08-20 09:40:00 98.1 [degF] [facility] bmi 2021-08-20 09:40:00 24.75 kg/m2 Common [facility] oximetry 2021-08-20 09:40:00 98 % Common [facility] respiratory rate 2021-08-20 09:40:00 16 /min Comm on [facility] blood pressure 2021-08-20 09:40:00 139 mm[Hg] [facility] blood pressure 2021-08-20 09:40:00 77 mm[Hg] [facility] height 2021-07-28 13:20:00 70.5 [in_i] Common [facility] weight 2021-07-28 13:20:00 177.8 [lb_av] [facility] temperature 2021-07-28 13:20:00 97.8 [degF] [facility] bmi 2021-07-28 13:20:00 25.15 kg/m2 Common [facility] oximetry 2021-07-28 13:20:00 97 % [facility] respiratory rate 2021-07-28 13:20:00 17 /min Comm on [facility] blood pressure 2021-07-28 13:20:00 135 mm[Hg] [facility] blood pressure 2021-07-28 13:20:00 80 mm[Hg] [facility] height 2021-05-26 09:00:00 70.5 [in_i] [facility] weight 2021-05-26 09:00:00 189.8 [lb_av] [facility] temperature 2021-05-26 09:00:00 97.9 [degF] [facility] bmi 2021-05-26 09:00:00 26.85 kg/m2 [facility] oximetry 2021-05-26 09:00:00 99 % [facility] respiratory rate 2021-05-26 09:00:00 16 /min Comm on [facility] blood pressure 2021-05-26 09:00:00 167 mm[Hg] [facility] blood pressure 2021-05-26 09:00:00 83 mm[Hg] [facility] Systolic (mm Hg) 2022-03-30 20:01:00 Oj rial [place] Diastolic (mm Hg) 2022-03-30 20:01:00 Mem orial [place] Heart Rate 2022-03-30 20:01:00 [facility] Height 2022-03-30 20:01:00 5 [ft_i] [facility] Weight 2022-03-30 20:01:00 [facility] BMI Calculated 2022-03-30 20:01:00 Memori al [place] Systolic (mm Hg) 2021-12-28 19:24:00 Oj rial [facility] Diastolic (mm Hg) 2021-12-28 19:24:00 Mem orial [place] Heart Rate 2021-12-28 19:24:00 [facility] [place] Height 2021-12-28 19:24:00 5 [ft_i] [facility] [place] Weight 2021-12-28 19:24:00 [facility] [place] BMI Calculated 2021-12-28 19:24:00 Mem[facility] al [place] Systolic (mm Hg) 2021-09-02 19:16:00 Oj rial David Diastolic (mm Hg) 2021-09-02 19:16:00 Mem orial [place] Heart Rate 2021-09-02 19:16:00 [facility] [place] Respitory Rate 2021-09-02 19:16:00 Mem[facility] al [place] Height 2021-09-02 19:16:00 165.1 cm [facility] Weight 2021-09-02 19:16:00 [facility] [place] BMI Calculated 2021-09-02 19:16:00 Memori al [place] BMI Calculated 2021-07-22 18:52:00 Memori al [facility] Systolic (mm Hg) 2021-07-22 18:52:00 Oj rial David Diastolic (mm Hg) 2021-07-22 18:52:00 Mem orial [place] Heart Rate 2021-07-22 18:52:00 [facility] [place] Respitory Rate 2021-07-22 18:52:00 Memori al [facility] Height 2021-07-22 18:52:00 167.64 cm [facility] Weight 2021-07-22 18:52:00 [facility] [place] Systolic (mm Hg) 2021-06-10 20:07:00 Oj rial David Diastolic (mm Hg) 2021-06-10 20:07:00 Mem orial [facility] Heart Rate 2021-06-10 20:07:00 [facility] [place] Respitory Rate 2021-06-10 20:07:00 Memori al [place] Height 2021-06-10 20:07:00 167.64 cm [facility] [place] Weight 2021-06-10 20:07:00 [facility] [place] BMI Calculated 2021-06-10 20:07:00 Memori al [facility] Systolic (mm Hg) 2020-11-24 14:31:00 Oj rial [place] Diastolic (mm Hg) 2020-11-24 14:31:00 Mem orial [facility] Heart Rate 2020-11-24 14:31:00 [facility] [place] Respitory Rate 2020-11-24 14:31:00 Memori al [facility] Height 2020-11-24 14:31:00 167.64 cm [facility] [place] Weight 2020-11-24 14:31:00 [facility] BMI Calculated 2020-11-24 14:31:00 Memori al [place] Systolic (mm Hg) 2020-05-22 18:43:00 Oj rial [place] Diastolic (mm Hg) 2020-05-22 18:43:00 Mem orial [place] Heart Rate 2020-05-22 18:43:00 [facility] [place] Respitory Rate 2020-05-22 18:43:00 Memori al [facility] Height 2020-05-22 18:43:00 167.64 cm [facility] [place] Weight 2020-05-22 18:43:00 [facility] [place] BMI Calculated 2020-05-22 18:43:00 Memori al [facility] Systolic (mm Hg) 2020-01-24 20:05:00 Oj rial David Diastolic (mm Hg) 2020-01-24 20:05:00 Mem orial [place] Heart Rate 2020-01-24 20:05:00 [facility] Respitory Rate 2020-01-24 20:05:00 Memori al [facility] Height 2020-01-24 20:05:00 177.8 cm [facility] Weight 2020-01-24 20:05:00 [facility] [place] BMI Calculated 2020-01-24 20:05:00 Memori al [place] Systolic (mm Hg) 2019-12-13 14:30:00 Oj rial [place] Diastolic (mm Hg) 2019-12-13 14:30:00 Mem orial David Heart Rate 2019-12-13 14:30:00 [facility] Respitory Rate 2019-12-13 14:30:00 Memori al [facility] Height 2019-12-13 14:30:00 167.64 cm [facility] [place] Weight 2019-12-13 14:30:00 [facility] BMI Calculated 2019-12-13 14:30:00 Memori al [place] Systolic (mm Hg) 2019-11-20 15:07:00 Oj rial [place] Diastolic (mm Hg) 2019-11-20 15:07:00 Mem orial David Heart Rate 2019-11-20 15:07:00 [facility] [place] Respitory Rate 2019-11-20 15:07:00 Zoya Arias Height 2019-11-20 15:07:00 167.64 cm Nimco Fragaann Weight 2019-11-20 15:07:00 Nimco Hernandez BMI Calculated 2019-11-20 15:07:00 Zoya Arias Procedures This patient has no known procedures. Encounters Start End Encounter Admission Attending Care Care Encounter Source Date/Time Date/Time Type Type Clinicians Facility Department ID 2022-03-22 Outpatient Zavala, STLMLC STLMLC [id number] Common 10:06:01 [facility] 2021-12-08 Outpatient Zavala, STLMLC STLMLC [id number] Common 14:11:01 [facility] 2021-10-26 Outpatient Zavala, STLMLC STLMLC [id number] Common 15:12:01 [facility] 2021-09-02 Outpatient [facility] [id number] [place] 16:28:40 [id number] [facility] 2021-05-26 Outpatient Zavala, STLMLC STLMLC [id number] Common 09:00:02 [facility] 2021-05-21 Outpatient Zavala, STLMLC STLMLC [id number] Common 13:49:00 [facility] 2021-04-06 Outpatient Zavala, STLMLC STLMLC [id number] Common 16:02:01 [facility] 2021-04-05 Outpatient Zavala, STLMLC STLMLC [id number] Common 13:41:02 [facility] 2021-03-31 Outpatient Zavala, STLMLC STLMLC [id number] Common 15:00:02 [facility] 2021-03-31 Outpatient Zavala, STLMLC STLMLC [id number] Common 14:27:50 [facility] 2021-03-31 Outpatient Zavala, STLMLC STLMLC [id number] Common 13:45:43 [facility] [address] [facility] 2021-03-31 [facility] [id number] Common 13:09:25 [facility] [address] [facility] 2021-03-31 [facility] [id number] Common 12:32:18 [facility] [address] [facility] 2022-06-28 2022-06-28 Outpatient MHIE MHIE [id number] Memoria 13:30:00 13:30:00 14 l [place] 2022-03-30 2022-03-31 Outpatient MHIE MNA [id number] Memoria 19:45:00 05:59:59 Neurology 13 l Lesli Hernandez 2022-03-30 2022-03-30 Outpatient BRUNO SilvaMISCHER MHMISCHER [id number] 13:45:00 23:59:59 Marcus 13 Mani 2022-03-30 2022-03-30 Outpatient MHIE MHIE [id number] Memoria 13:45:00 13:45:00 13 l David 2022-01-31 2022-01-31 [facility] [id number] Co mmon 00:00:00 00:00:00 VISIT [facility] LEVEL 4 [facility] 2022-01-04 2022-01-06 Outside nullFlavo MNA [id number] Memoria 16:13:10 04:59:59 Medical r Neurology 00 l Records Clarendon David 2022-01-04 2022-01-05 Outpatient MHMISCHER MHMISCHER [id number] 11:13:10 23:59:59 00 2021-12-28 2021-12-29 Outpatient nullFlavo MNA [id number] Memoria 19:00:00 04:59:59 r Neurology 12 l Lesli Hernandez 2021-12-28 2021-12-28 Outpatient TING SilvaSCHER MHMISCHER [id number] 14:00:00 23:59:59 Marcus 12 Mani 2021-12-28 2021-12-28 Outpatient MHIE MHIE [id number] Memoria 14:00:00 14:00:00 12 elsi Hernandez 2021-12-27 2021-12-27 (TEL) STLMLC STLMLC [id number] Co mmon 00:00:00 00:00:00 [facility] 2021-12-27 2021-12-27 (TEL) STLMLC STLMLC [id number] Co mmon 00:00:00 00:00:00 [facility] 2021-12-13 2021-12-13 (TEL) STLMLC STLMLC [id number] Co mmon 00:00:00 00:00:00 [facility] 2021-12-09 2021-12-09 (TEL) STLMLC STLMLC [id number] Co mmon 00:00:00 00:00:00 [facility] 2021-11-25 2021-11-25 (TEL) STLMLC STLMLC [id number] Co mmon 00:00:00 00:00:00 [facility] 2021-11-17 2021-11-17 OFFICE STLMLC STLMLC [id number] Co mmon 00:00:00 00:00:00 VISIT [facility] PT LEVEL 3 [facility] 2021-10-27 2021-10-27 OFFICE STLMLC STLMLC [id number] Co mmon 00:00:00 00:00:00 VISIT [facility] PT - CHI LEVEL 4 [facility] 2021-09-02 2021-09-03 Outpatient nullFlavo MNA [id number] Memoria 19:00:00 04:59:59 r Neurology 11 elsi Hernandez 2021-09-02 2021-09-02 Outpatient Shira MHMISCHER MHMISCHER [id number] 14:00:00 23:59:59 Marcus Singleton 2021-09-02 2021-09-02 Outpatient ARABELLA BELL [id number] Memoria 14:00:00 14:00:00 11 l David 2021-08-24 2021-08-24 (TEL) STLMLC STLMLC [id number] Co mmon 00:00:00 00:00:00 [facility] 2021-08-20 2021-08-20 OFFICE STLMLC STLMLC [id number] Co mmon 00:00:00 00:00:00 VISIT [facility] PT LEVEL 3 - [facility] 2021-08-11 2021-08-12 Outpt Diag nullFlavo [facility] [id number] Memoria 18:02:00 04:59:00 Services r Outpatient 00 l Imaging David Hernandez 2021-08-11 2021-08-11 [facility] [id number] 13:02:00 23:59:00 Marcus 00 Mani 2021-07-28 2021-07-28 OFFICE STLMLC STLMLC [id number] Co mmon 00:00:00 00:00:00 [facility]IT [facility] PT - [facility]I LEVEL 5 [facility] 2021-07-22 2021-07-23 [place] [id number] Memoria 18:45:00 04:59:59 r Neurology 10 l Lesli [place] 2021-07-22 2021-07-22 Outpatient MINH Silva CHRISTI [id number] 13:45:00 23:59:59 Mracus 10 Mani 2021-07-22 2021-07-22 Outpatient MHIE IE [id number] Memoria 13:45:00 13:45:00 10 l [place] 2021-07-07 2021-07-07 (TEL) STLMLC STLMLC [id number] Co mmon 00:00:00 00:00:00 [facility] 2021-07-06 2021-07-06 (TEL) STLMLC STLMLC [id number] Co mmon 00:00:00 00:00:00 [facility] 2021-06-25 2021-06-25 (TEL) STLMLC STLMLC [id number] Co mmon 00:00:00 00:00:00 [facility] 2021-06-10 2021-06-11 Outpatient nullFlavo MNA [id number] Memoria 19:45:00 04:59:59 r Neurology 09 l Clarendonleonardo Fragaann 2021-06-10 2021-06-10 [id number] 14:45:00 23:59:59 Marcus 09 Mani 2021-06-10 2021-06-10 Outpatient MHIE MHIE [id number] Memoria 14:45:00 14:45:00 09 elsi Hernandez 2021-06-08 2021-06-08 (TEL) STLMLC STLMLC [id number] Co mmon 00:00:00 00:00:00 [facility] - [facility] 2021-05-31 2021-05-31 (TEL) STLMLC STLMLC [id number] Co mmon 00:00:00 00:00:00 [facility] 2021-05-26 2021-05-26 OFFICE STLMLC STLMLC [id number] Co mmon 00:00:00 00:00:00 [facility] LEVEL 2 [facility] 2020-11-24 2020-11-25 Outpatient nullFlavo MNA [id number] Memoria 14:30:00 04:59:59 r Neurology 08 elsi eLsli Hernandez 2020-11-24 2020-11-24 Outpatient MINH SilvaMISCHRUDY [id number] 09:30:00 23:59:59 Marcus 08 Mani 2020-11-24 2020-11-24 Outpatient MHIE MHIE [id number] Memoria 09:30:00 09:30:00 08 elsi Hernandez 2020-05-22 2020-05-23 Outpatient nullFlavo MNA [id number] Memoria 18:30:00 04:59:59 r Neurology 07 elsi Lesli Hernandez 2020-05-22 2020-05-22 Outpatient MINH SilvaSCHRUDY [id number] 13:30:00 23:59:59 Marcus 07 Mani 2020-05-22 2020-05-22 Outpatient MHIE MHIE [id number] Memoria 13:30:00 13:30:00 07 elsi David 2020-01-24 2020 Outpatient nullFlavo MNA [id number] Memoria 19:45:00 05:59:59 r Neurology 06 elsi Lesli Hernandez 2020-01-24 2020-01-24 Outpatient MINH SilvaMISCHRUDY [id number] 13:45:00 23:59:59 Marcus 06 Mani 2020-01-24 2020-01-24 Outpatient MHIE MHIE [id number] Memoria 13:45:00 13:45:00 06 elsi FragaDavid 2019-12-13 2019-12-14 Outpatient nullFlavo MNA [id number] Memoria 14:45:00 04:59:59 r Neurology 05 l Lesli [place] 2019-12-13 2019-12-13 Outpatient MINH Silva [facility] [id number] 09:45:00 23:59:59 Marcus 05 Mani 2019-12-13 2019-12-13 Outpatient MHIE MHIE [id number] Memoria 09:45:00 09:45:00 05 elsi [place] 2019-11-20 2019-11-21 Outpatient nullFlavo MNA [id number] Memoria 14:30:00 04:59:59 r Neurology 04 l Lesli [place] 2019-11-20 2019-11-20 Outpatient MINH Silva [facility] [id number] 09:30:00 23:59:59 Marcus 04 Mani 2019-11-20 2019-11-20 Outpatient MHIE MHIE [id number] Memoria 09:30:00 09:30:00 04 elsi Hernandez Results Test Description Test Time Test Comments Results Result Comments Source ANEMIA STUDY 2019-12-31 13:39:00 Test Item Value Reference Range Interpretation Comme nts Vitamin B12 Lvl (test code = Vitamin B12 Lvl) [id number] [facility] [id number] 13:39:00 Test Item Value Reference Range Interpretation Comments VITAMIN B1 (THIAMINE) WHOLE BLOOD (test 180 78-185 code = VITAMIN B1 (THIAMINE) WHOLE BLOOD) [id number] 13:39:00 Test Item Value Reference Range Interpretation Comments Sed Rate (test code = Sed Rate) 2 [facility] [id number] 13:39:00 Test Item Value Reference Range Interpretation Comments C-REACTIVE PROTEIN (test code = 0.3 C-REACTIVE PROTEIN) [facility]
[2022-05-21 15:53] LABS: Absolute Lymphocytes (CBC) 1.1 K/uL (0.7-4.9); Hematocrit 34.1 % (39.6-49.0); Lymphocytes % 14.1 % (15.3-44.8); MCV 88.8 fL (80-100); MPV 7.5 fL (7.6-11.3); RBC Red Blood Cell Count 3.84 M/uL (4.33-5.43)
[2022-05-21 16:12] LABS: Albumin 4.1 g/dL (3.4-5.0); Bilirubin Total 0.5 mg/dL (0.2-1.0); Potassium 3.6 mEq/L (3.5-5.1); Protein, Total 7.5 g/dL (6.4-8.2)
--- NOTE | 2022-05-21 16:52 | RAD REPORT ---
EXAM DESCRIPTION: Nick Single View05/21/2022 3:57 pm CLINICAL HISTORY: Cough COMPARISON: May 13, 2021 FINDINGS: Eventration right hemidiaphragm. Curvilinear air abuts the superior aspect of the eventrat ion. Lungs appear clear of acute infiltrate. Heart is normal size Aorta is tortuous IMPRESSION: Eventration right hemidiaphragm. Curvilinear air abuts the superior aspect of the eventr ation. This may indicate pneumoperitoneum or subsegmental atelectasis If the patient has clinical symptoms of an acute abdomen then CT abdomen would be recommended
[2022-05-21] MEDS ORDERED: NA CHLORIDE 0.9% 500 ML ONE (17:04)
--- NOTE | 2022-05-21 17:32 | RAD REPORT ---
EXAM DESCRIPTION: CT - Head Brain Wo Cont - 05/21/2022 5:25 pm CLINICAL HISTORY: Alteration of awareness/confusion COMPARISON: 2021 TECHNIQUE: Computed axial tomography of the head was obtained. IV contrast was not requested. All CT scans are performed using dose optimization technique as appropriate and may include automated exposure control or mA/KV adjustment according to patient size. FINDINGS: An intracranial bleed is not seen The ventricles are normal in caliber No extra-axial fluid collection is noted. Mild to moderate cerebral and cerebellar vermis atrophy. Mild to moderate low-density areas within periventricular, deep and subcortical white matter likely r epresent ischemic changes secondary to small vessel disease. Fluid within the sinuses/ mastoids is not seen. IMPRESSION: No acute intracranial abnormality is seen If patient's symptoms persist MRI of the brain would be recommended
--- NOTE | 2022-05-21 17:48 | ER ---
Nurse's Notes [facility] Name: Matthew Avila Age: 77 yrs Sex: Male : 1945 Arrival Date: 05/21/2022 Time: 15:38 Bed 6 Private MD: Sean Zavala Diagnosis: Hypoglycemia, unspecified;Acute kidney failure, unspecified Presentation: 05/21 15:38 Acuity: NELLY 2 hb 15:38 Method Of Arrival: Ambulatory hb 15:38 Chief complaint: reports home BGL 29, hx of dementia, has been more confused than hb normal today, started stumbling and having difficulty walking at 1430. Uses Levemir, may have used Novolog this morning, dose unverified. Is 5 days s/p bilateral inguinal hernia repair by Dr. Hale. Coronavirus screen: At this time, the client does not indicate any symptoms associated with coronavirus-19. Ebola Screen: No symptoms or risks identified at this time. Initial Sepsis Screen: Does the patient meet any 2 criteria? No. Patient's initial sepsis screen is negative. Does the patient have a suspected source of infection? No. Patient's initial sepsis screen is negative. Risk Assessment: Do you want to hurt yourself or someone else? Patient reports no desire to harm self or others. Onset of symptoms was May 21, 2022. Historical: - Allergies: 15:44 No Known Allergies; hb - PMHx: 15:44 Dementia; Hypercholesterolemia; Hypertensive disorder; Type 2 Diabetes Mellitus; hb - PSHx: 15:44 Left shoulder sx; hb - Immunization history:: Adult Immunizations unknown. - Social history:: Smoking status: unknown. Screenin:43 [facility] ED Fall Risk Assessment (Adult) Score/Fall Risk Level 3 or more points = High hb Risk Oriented to surroundings, Maintained a safe environment, Educated pt \T\ family on fall prevention, incl call for assistance when getting out of bed, Assessed \T\ reinforced patient's understanding of fall precautions. Abuse screen: Denies threats or abuse. Denies injuries from another. Nutritional screening: No deficits noted. Tuberculosis screening: No symptoms or risk factors identified. Assessment: 15:43 General: Appears in no apparent distress. Behavior is calm, cooperative. Pain: Denies hb pain. Neuro: Level of Consciousness is awake, alert, obeys commands, confused, Oriented to person. Cardiovascular: Patient's skin is warm and dry. Respiratory: Respiratory effort is even, unlabored, Respiratory pattern is regular, symmetrical. GI: No signs and/or symptoms were reported involving the gastrointestinal system. : No signs and/or symptoms were reported regarding the genitourinary system. EENT: No signs and/or symptoms were reported regarding the EENT system. Derm: Skin is pink, warm \T\ dry. Musculoskeletal: No signs and/or symptoms reported regarding the musculoskeletal system. 15:52 Reassessment: Pt alert, sitting upright in bed, eating sandwich at this time. and hb Dr. Purcell at bedside. 16:51 Reassessment: No changes from previously documented assessment. Dr. Purcell at BS. ll1 17:13 Reassessment: Patient appears in no apparent distress at this time. Patient and/or hb family updated on plan of care and expected duration. Pain level reassessed. Vital Signs: 15:38 BP 156 / 78; Pulse 76; Resp 17; Temp 98.3; Pulse Ox 97% on R/A; Weight 71.67 kg; Height hb 5 ft. 7 in. ; Pain 0/10; 17:13 BP 166 / 79; Pulse 61; Resp 16; Pulse Ox 97% on R/A; hb 15:38 Body Mass Index 24.75 (71.67 kg, 170.18 cm) hb 15:38 Pain Scale: Adult hb NIH Stroke Scale Scores: 15:59 NIHSS Score: 2 bs3 ED Course: 15:38 Patient arrived in ED. am2 15:38 Sean Zavala DO is Private Physician. am2 15:39 Rudy Purcell MD is Attending Physician. bs3 15:42 Tala Aguirre, CHLOE is Primary Nurse. hb 15:43 Inserted saline lock: 20 gauge in right antecubital area, using aseptic technique. hb Blood collected. 15:44 Arm band placed on. hb 15:47 Triage completed. hb 15:47 Patient has correct armband on for positive identification. hb 15:59 Chest Single View XRAY In Process Unspecified. EDMS 17:27 CT Head Brain wo Cont In Process Unspecified. EDMS 17:45 Sean Zavala DO is Referral Physician. bs3 Administered Medications: 17:03 Drug: NS 0.9% IV 500 ml Route: IV; Rate: bolus; Site: right antecubital; kr3 Medication: 15:47 VIS not applicable for this client. hb Point of Care Testing: Blood Glucose: 15:43 Blood Glucose: 76 mg/dL; hb Ranges: Outcome: 17:47 Discharge ordered by . bs3 NIH Stroke Scale - NIH Stroke Score Date: 05/21/2022 Time: 15:59 Total Score = 2 10. Dysarthria (speech clarity - read or repeat words) - 0(Normal) 11. Extinction and Inattention (visual/tactile/auditory/spatial/personal) - 0(No abnormality) 1a. Level of Consciousness (LOC) - 0(Alert) 1b. Level of Consciousness (LOC) (Month \T\ Age) - 1(One) 1c. LOC Commands (Open \T\ Closes Eyes/Machine Clothing Man) - 0(Both) 2. Best Gaze (Lateral Gaze Paresis) - 0(Normal) 3. Visual Field Loss - 0(No visual loss) 4. Facial Palsy - 0(Normal) 5a. Left Arm: Motor (10-second hold) - 0(No drift) 5b. Right Arm: Motor (10-second hold) - 0(No drift) 6a. Left Leg: Motor (5-second hold - always test supine) - 0(No drift) 6b. Right Leg: Motor (5-second hold - always test supine) - 0(No drift) 7. Limb Ataxia (finger/nose \T\ heel/guillen - test with eyes open) - 0(Absent) 8. Sensory Loss (pinprick arms/legs/face) - 0(Normal) 9. Best Language: Aphasia (description/naming/reading) - 1(Mild to moderate aphasia) Initials: bs3 Signatures: Dispatcher [employer] EDMS Tala Aguirre RN RN hb Adri [place] am2 Shai Espinoza RN RN ll1 Aye Youssef RN RN kr3 Rudy Purcell MD MD bs3 Corrections: (The following items were deleted from the chart) 15:49 15:38 Chief complaint: reports hx of dementia, was more confused today hb than normal, home BGL 20s. hb 15:51 15:38 Chief complaint: reports home BGL 29, hx of dementia, has been more hb confused than normal today, started stumbling and having difficulty walking at 1430. hb 15:55 15:38 Chief complaint: reports home BGL 29, hx of dementia, has been more hb confused than normal today, started stumbling and having difficulty walking at 1430. Uses Levemir, may have used Novolog this morning, dose unverified. hb 15:55 15:38 BP 156 / 78; Pulse 76bpm; Resp 17bpm; Pulse Ox 97% RA; Temp 98.3F; 74.84 hb kg; Height 5 ft. 10 in.; BMI: 23.6; Pain 0/10, Adult; hb 17:13 17:13 Reassessment: Patient appears in no apparent distress at this time. hb Patient and/or family updated on plan of care and expected duration. Pain level reassessed. Patient is alert, oriented x 3, equal unlabored respirations, skin warm/dry/pink. hb
--- NOTE | 2022-05-21 17:48 | EDPHYS ---
Physician Documentation [facility] Name: Matthew Avila Age: 77 yrs Sex: Male : 1945 Arrival Date: 05/21/2022 Time: 15:38 Bed 6 Private MD: [facility] ED Physician Rudy Purcell HPI: 05/21 15:59 This 77 yrs old Male presents to ER via Ambulatory with complaints of Low bs3 Blood Sugar. 15:59 69-year-old male history of dementia, hypertension diabetes recent inguinal hernia bs3 repair by Dr. Hale this past Monday presents with altered mental status per his he symptoms forgets to eat she was told that he ate lunch and they then went to the mall however he began to have an unsteady gait there they were going to walk store but when they got to the watch store she found that he forgot to watch at home they started to go back home when he became increasingly altered and weak he tried to get out of the car when he was unable to get out she brought him cheese, orange juice and sugar which he drank and ate and then went inside the house and got a glucometer and checked his glucose and it was in the 20s she then brought him here. She notes an similar episode happening approximately 1 year ago no recent fevers chills nausea vomiting chest pain or shortness of breath per his he has baseline aphasia and has difficulty naming objects. History is limited as patient condition and mental status he does not know why he is here he has no complaints. Historical: - Allergies: 15:44 No Known Allergies; hb - PMHx: 15:44 Dementia; Hypercholesterolemia; Hypertensive disorder; Type 2 Diabetes Mellitus; hb - PSHx: 15:44 Left shoulder sx; hb - Immunization history:: Adult Immunizations unknown. - Social history:: Smoking status: unknown. ROS: 15:59 Constitutional: Negative for fever, chills bs3 15:59 Unable to obtain ROS due to baseline dementia. Exam: 15:59 Constitutional: This is a well developed, well nourished patient who is awake, alert, bs3 and in no acute distress. Head/Face: Normocephalic, atraumatic. Eyes: Pupils equal round and reactive to light, extra-ocular motions intact. Lids and lashes normal. ENT: mmm, no posterior phyarngeal erythema Neck: Trachea midline, no thyromegaly, no neck stiffness Chest/axilla: Normal chest wall appearance and motion. Nontender with no deformity. No lesions are appreciated. Cardiovascular: Regular rate and rhythm with a normal S1 and S2. symmetric pulses in upper extremities Respiratory: Lungs have equal breath sounds bilaterally, clear to auscultation, no respiratory distress Abdomen/GI: Soft, non-tender, no rebound or guarding, bruising in the lower abdomen toward the pelvis with ecchymosis around his scrotum nontender he has abdominal suture scars which are clean dry and intact Skin: Warm, dry with normal turgor. Normal color with no rashes, no lesions, and no evidence of cellulitis. MS/ Extremity: Pulses equal, no cyanosis. Neurovascular intact. Full, normal range of motion. Neuro: Awake and alert, GCS 15, oriented to person,. Cranial nerves II-XII grossly intact. Motor strength 5/5 in all extremities. Sensory grossly intact, he has difficulty naming objects but can repeat a sentence, he has no significant slurred speech, initially he had a slightly unsteady gait when getting into the bed but he did not have unilateral symptoms Psych: Awake, alert, with orientation to person, place and time. Behavior, mood, and affect are within normal limits. 17:07 Sinus rhythm at [address] elevations or depressions QTc 484 bs3 Vital Signs: 15:38 BP 156 / 78; Pulse 76; Resp 17; Temp 98.3; Pulse Ox 97% on R/A; Weight 71.67 kg; Height hb 5 ft. 7 in. ; Pain 0/10; 17:13 BP 166 / 79; Pulse 61; Resp 16; Pulse Ox 97% on R/A; hb 15:38 Body Mass Index 24.75 (71.67 kg, 170.18 cm) hb 15:38 Pain Scale: Adult hb NIH Stroke Scale Scores: 15:59 NIHSS Score: 2 bs3 MDM: 15:39 Patient medically screened. bs3 15:59 Differential diagnosis: Possible hypoglycemia resolving versus electrolyte abnormality bs3 I considered cerebrovascular accident however his symptoms were improving over time and he had no lateralizing symptoms. Data reviewed: vital signs, nurses notes. ED course: Initial glucose 76 here he was given a sandwich with peanut butter and jelly and ate the sandwich during eating the sandwich he was reevaluated and showed improvement in his gait and his mental status his was at bedside and noted significant improvement in symptoms given the marked improvement and low NIH stroke scale I did not consider giving tPA in addition his symptoms were much more consistent with hypoglycemia rather than a stroke. 16:51 ED course: Patient a almost all the sandwich repeat Accu-Chek was slightly increased bs3 from prior Will give additional oral glucose through a putting and reassess per his he is almost at his baseline but still a little bit tired will add CT head although no focal deficits. 16:53 ED course: Labs otherwise notable for elevated BUN and creatinine pt saw nephrology bs3 last week but his does not recall his creatine. 17:04 ED course: Discussed with Dr. Zavala who noted that on May 12 his creatinine was 2.0 bs3 discussed the case with Dr. Zavala who recommended decreasing his insulin to 5 units twice daily and Dr. Zavala will reach out to his nail puller Dr. Cook to be seen this week we recommended to check his glucose 4 times daily and return with any concerning symptoms. 17:36 Independent interpretation of the following test(s) in the Emergency Department X-Ray: bs3 My interpretation is Likely small amount of free air under the diaphragm this is consistent with his recent hernia repair he has no abdominal pain cough shortness of breath he has follow-up on Monday with his surgeon. CT Scan: My interpretation is No intracranial hemorrhage. 17:36 ED course: Pneumoperitoneum is expected after his recent surgery his abdomen is soft bs3 nontender. 05/21 15:59 Order name: EKG - Nurse/Tech; Complete Time: 16:38 bs3 05/21 15:42 Order name: CBC with Diff; Complete Time: 16:42 bs3 05/21 15:42 Order name: Comprehensive Metabolic Panel; Complete Time: 16:42 bs3 05/21 16:53 Interpretation: Abnormal. bs3 05/21 15:42 Order name: Chest Single View XRAY; Complete Time: 16:59 bs3 05/21 16:43 Order name: Glucose Level; Complete Time: 17:01 bs3 05/21 16:51 Order name: CT Head Brain wo Cont bs3 05/21 15:42 Order name: glucometer results - FOR PT WITH NO ID hb 05/21 16:58 Order name: Glucose, Ancillary Testing; Complete Time: 16:59 EDMS Administered Medications: 17:03 Drug: NS 0.9% IV 500 ml Route: IV; Rate: bolus; Site: right antecubital; kr3 Point of Care Testing: Blood Glucose: 15:43 Blood Glucose: 76 mg/dL; hb Ranges: Critical Glucose Levels:Adult <50 mg/dl or >400 mg/dl <40 mg/dl or >180 mg/dl Disposition Summary: 05/21/22 17:47 Discharge Ordered Location: Home bs3 Problem: an acute exacerbation bs3 Symptoms: have improved bs3 Condition: Stable bs3 Diagnosis - Hypoglycemia, unspecified bs3 - Acute kidney failure, unspecified bs3 Followup: bs3 - With: Sean Zavala DO - When: 5 - 6 days - Reason: Forms: - Medication Reconciliation Form bs3 - Thank You Letter bs3 - Antibiotic Education bs3 - Prescription Opioid Use bs3 NIH Stroke Scale - NIH Stroke Score Date: 05/21/2022 Time: 15:59 Total Score = 2 10. Dysarthria (speech clarity - read or repeat words) - 0(Normal) 11. Extinction and Inattention (visual/tactile/auditory/spatial/personal) - 0(No abnormality) 1a. Level of Consciousness (LOC) - 0(Alert) 1b. Level of Consciousness (LOC) (Month \T\ Age) - 1(One) 1c. LOC Commands (Open \T\ Closes Eyes/Livestock Farmers) - 0(Both) 2. Best Gaze (Lateral Gaze Paresis) - 0(Normal) 3. Visual Field Loss - 0(No visual loss) 4. Facial Palsy - 0(Normal) 5a. Left Arm: Motor (10-second hold) - 0(No drift) 5b. Right Arm: Motor (10-second hold) - 0(No drift) 6a. Left Leg: Motor (5-second hold - always test supine) - 0(No drift) 6b. Right Leg: Motor (5-second hold - always test supine) - 0(No drift) 7. Limb Ataxia (finger/nose \T\ heel/guillen - test with eyes open) - 0(Absent) 8. Sensory Loss (pinprick arms/legs/face) - 0(Normal) 9. Best Language: Aphasia (description/naming/reading) - 1(Mild to moderate aphasia) Initials: bs3 Signatures: Dispatcher [employer] EDMS Tala Aguirre RN RN Aye Youssef RN RN kr3 Rudy Purcell MD MD bs3 Corrections: (The following items were deleted from the chart) 17:44 15:59 Constitutional: This is a well developed, well nourished patient who is bs3 awake, alert, and in no acute distress. Head/Face: Normocephalic, atraumatic. Eyes: Pupils equal round and reactive to light, extra-ocular motions intact. Lids and lashes normal. ENT: mmm, no posterior phyarngeal erythema Neck: Trachea midline, no thyromegaly, no neck stiffness Chest/axilla: Normal chest wall appearance and motion. Nontender with no deformity. No lesions are appreciated. Cardiovascular: Regular rate and rhythm with a normal S1 and S2. symmetric pulses in upper extremities Respiratory: Lungs have equal breath sounds bilaterally, clear to auscultation, no respiratory distress Abdomen/GI: Soft, non-tender, no rebound or guarding Skin: Warm, dry with normal turgor. Normal color with no rashes, no lesions, and no evidence of cellulitis. MS/ Extremity: Pulses equal, no cyanosis. Neurovascular intact. Full, normal range of motion. Neuro: Awake and alert, GCS 15, oriented to person,. Cranial nerves II-XII grossly intact. Motor strength 5/5 in all extremities. Sensory grossly intact, he has difficulty naming objects but can repeat a sentence, he has no significant slurred speech, initially he had a slightly unsteady gait when getting into the bed but he did not have unilateral symptoms Psych: Awake, alert, with orientation to person, place and time. Behavior, mood, and affect are within normal limits. bs3
[2022-05-21 18:16] VITALS: TEMP 98.3; O2SAT 97
[2022-05-21 18:17] VITALS: BP 166/79
--- NOTE | 2022-05-23 17:38 | EKG ---
Test Date: 2022-05-21 Test Time: 15:51:04 Boat Carpenter Mechanic: HELLEN MEASUREMENT RESULTS: Intervals: Rate: 68 GA: 188 QRSD: 126 QT: 456 QTc: 484 Golden: P: 133 GA: 188 QRS: 27 T: 63 INTERPRETIVE STATEMENTS: Unusual P axis, possible ectopic atrial rhythm Nonspecific intraventricular block Abnormal ECG Compared to ECG 05/13/2022 15:21:12 Sinus bradycardia no longer present Intraventricular conduction delay no longer present Electronically Signed On 05-23-22 17:36:08 CDT by Ar Boss
== END 2022-05-21 17:56 | disposition home or self-care (01) ==
LOC: ER 15:37
DX: E11.649 Type 2 diabetes mellitus with hypoglycemia without coma (principal); N17.9 Acute kidney failure, unspecified; I10 Essential (primary) hypertension; F03.90 Unspecified dementia, unspecified severity, without behavioral disturbance, psychotic disturbance, mood disturbance, and anxiety
CPT/HCPCS: 93005; 85025; 36415; 82947 ×3; 80053; 70450; 71045; 96360; 99284; J7040

== ENCOUNTER 2023-04-28 08:35 | Inpatient (IN) | payer OTHER ==
[2023-04-28 09:27] LABS: Absolute Lymphocytes (CBC) 0.7 K/uL (0.7-4.9); Hematocrit 34.8 % (39.6-49.0); Lymphocytes % 9.9 % (15.3-44.8); MCV 88.3 fL (80-100); MPV 7.3 fL (7.6-11.3); Platelets 201 thou/uL (152-406); RBC Red Blood Cell Count 3.95 M/uL (4.33-5.43)
[2023-04-28 09:31] LABS: Protime INR 1.2
[2023-04-28 09:41] LABS: Urine Bacteria None Seen /HPF (<20); Urine Bilirubin NEGATIVE (Negative); Urine Blood 1+ (Negative); Urine Clarity Clear (Clear); Urine Color Light-Yellow (Yellow); Urine Glucose NEGATIVE (Negative); Urine Mucus Slight /HPF (None Seen); Urine Protein TRACE (Negative); Urine Urobilinogen Normal (Normal); Urine pH 5.5 (5.0-7.0)
[2023-04-28 09:44] LABS: Albumin 3.4 g/dL (3.4-5.0); Bilirubin Direct 0.3 mg/dL (0-0.2); Bilirubin Indirect, Calculated 0.5 mg/dL (0.2-0.8); Bilirubin Total 0.8 mg/dL (0.2-1.0); Magnesium 2.5 mg/dL (1.6-2.4); Potassium 3.6 mEq/L (3.5-5.1); Protein, Total 6.5 g/dL (6.4-8.2); Troponin High Sensitivity 31.4 pg/mL (<58.9)
[2023-04-28] MEDS ORDERED: NA CHLORIDE 0.9% 500 ML ONE (09:58)
--- NOTE | 2023-04-28 10:06 | RAD REPORT ---
EXAM DESCRIPTION: RAD - Femur Right - 04/28/2023 9:55 am CLINICAL HISTORY: PAIN COMPARISON: No comparisons FINDINGS: Mildly impacted fracture of the proximal right femur is present. The bones are diffusely d emineralized. No dislocation. 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
--- NOTE | 2023-04-28 10:21 | RAD REPORT ---
EXAM DESCRIPTION: CT - Head C Spine Cap Wo Con - 04/28/2023 10:03 am CLINICAL HISTORY: Trauma, head and neck injury. Chest, abdomen and pelvis pain. multiple falls, downstairs and walking COMPARISON: No comparisons TECHNIQUE: CT head without contrast. CT cervical spine without contrast with coronal and sagittal reformatted images. CT chest, abdomen and pelvis without contrast with coronal and sagittal reformatted images of the [facility]. All CT scans are performed using dose optimization technique as appropriate and may include automated exposure control or mA/KV adjustment according to patient size. FINDINGS: CT HEAD WITHOUT CONTRAST: No intracranial hemorrhage, hydrocephalus or extra-axial fluid collection. Moderate generalized brain atrophy is present with moderate periventricular and deep white matter chronic microvascular ischemi c changes. No areas of brain edema or midline shift. The paranasal sinuses and mastoids are clear. The calvarium is intact. CT CERVICAL SPINE WITHOUT CONTRAST: No fracture or subluxation. Prominent degenerative changes seen throughout the cervical spine. There is 7 mm of degenerative anterolisthesis is present C7 on T1. The prevertebral soft tissues are normal in thickness.Moderate bilateral carotid atherosclerosis. CT CHEST, ABDOMEN, PELVIS WITHOUT CONTRAST: NOTE: Lack of contrast is a significant limitation in the assessment of trauma related findings. Spec ifically, solid organ, vascular and bowel evaluation is significantly limited. Small nodules are present in both lungs, nonspecific. Atelectasis is present in left base.No pneumoth orax or pericardial/pleural fluid. No evidence of intra-abdominal visceral injury, free fluid or free air is seen within the above detai led limitations. There is a large amount of stool in the rectosigmoid colon. Mildly impacted fracture proximal right femur is seen. Advanced multilevel degenerative change of the spine. IMPRESSION: Mildly impacted fracture proximal right femur. Significant fecal retention in the rectosigmoid colon. Advanced degenerative change in the cervical spine including 7 mm degenerative anterolisthesis C7 on T1. Bilateral pulmonary nodules are present, nonspecific.
--- NOTE | 2023-04-28 10:51 | ER ---
Nurse's Notes [facility] Name: Matthew Avila Age: 78 yrs Sex: Male : 1945 Arrival Date: 04/28/2023 Time: 08:35 Bed 13 Private MD: Sean Zavala Diagnosis: Fracture of unspecified part of neck of right femur;Muscle weakness (generalized);Repeated falls Presentation: 04/28 08:47 Chief complaint: Spouse and/or significant other states: Fell . L leg pain ll1 since. Multiple falls since (about 8 total). Coronavirus screen: Vaccine status: Patient reports receiving the 2nd dose of the covid vaccine. Client denies travel out of the [place] in the last 14 days. At this time, the client does not indicate any symptoms associated with coronavirus-19. Ebola Screen: Patient denies travel to an Ebola-affected area in the 21 days before illness onset. Initial Sepsis Screen: Does the patient meet any 2 criteria? No. Patient's initial sepsis screen is negative. Does the patient have a suspected source of infection? No. Patient's initial sepsis screen is negative. Risk Assessment: Do you want to hurt yourself or someone else? Patient reports no desire to harm self or others. Onset of symptoms was April 20, 2023. 08:47 Method Of Arrival: Wheelchair ll1 08:47 Acuity: NELLY 3 ll1 13:32 Care prior to arrival: None. Mechanism of Injury: Fall. cm10 Historical: - Allergies: 08:49 No Known Allergies; ll1 - PMHx: 08:49 Hypercholesterolemia; Dementia; Hypertensive disorder; Type 2 Diabetes Mellitus; ll1 - PSHx: 08:49 Left shoulder sx; ll1 - Immunization history:: Adult Immunizations up to date. - Social history:: Smoking status: Patient denies any tobacco usage or history of. - Immunization history: Last tetanus immunization: - up to date. - Family history:: not pertinent. - Hospitalizations: : No recent hospitalization is reported. Screenin:50 [facility] ED Fall Risk Assessment (Adult) History of falling in the last 3 months, ll1 including since admission Yes- fall prone (multiple falls) (3 pts) Confusion or Disorientation Yes (5 pts) Impaired Gait Yes (1 pt) Score/Fall Risk Level 3 or more points = High Risk Oriented to surroundings, Maintained a safe environment, Educated pt \T\ family on fall prevention, incl call for assistance when getting out of bed, Provided non-skid footwear, Hourly rounding (assess needs \T\ fall precautionary measures) done, Offered frequent toileting (1:1 observation), Remained with patient while ambulating. Abuse screen: Denies threats or abuse. Nutritional screening: No deficits noted. Tuberculosis screening: No symptoms or risk factors identified. Primary Survey: 08:51 NO uncontrolled hemorrhage observed. A: The client is awake and alert. The airway is ll1 patent. Breathing/Chest: Spontaneous respiratory effort, equal unlabored respirations, breath sounds clear bilaterally, regular pattern, symmetrical chest rise and fall. Circulation: No external hemorrhage present. Regular and strong central pulse, skin warm/dry/normal color. Disability Pupils are equal, round, reactive to light and accommodation. Exposure/Environment: All clothing and personal items were removed. Forensic evidence collection is not deemed to be indicated at this time. Items placed in patient belonging bag. 13:31 Reassessment Alertness and Airway: Awake and alert. The airway is patent. Breathing: cm10 Spontaneous respiratory effort, equal unlabored respirations, breath sounds clear bilaterally, regular pattern with symmetrical chest rise and fall. Circulation: No external hemorrhage noted. Regular and strong central pulse, skin warm/dry/normal color. Assessment: 08:50 General: Appears in no apparent distress. Behavior is calm, cooperative, appropriate ll1 for age. Pain: Complains of pain in left leg Quality of pain is described as aching, Pain began 6 days ago. Musculoskeletal: Circulation, motion, and sensation intact. Capillary refill < 3 seconds, Reports pain in left leg. Injury Description: Bruise. 09:40 Reassessment: No changes from previously documented assessment. Patient and/or family ll1 updated on plan of care and expected duration. Pain level reassessed. 10:10 Reassessment: No changes from previously documented assessment. Patient and/or family ll1 updated on plan of care and expected duration. Pain level reassessed. 10:23 Reassessment: Patient appears in no apparent distress at this time. Patient and/or cm10 family updated on plan of care and expected duration. Pain level reassessed. Patient is alert, oriented x 3, equal unlabored respirations, skin warm/dry/pink. Assumed care of patient at this time. Pt awake and alert. Pt's updated on plan of care. IVF infusing, IV site, clean dry and intact. Respirations even and unlabored. Call light in reach. Neuro: No deficits noted. Level of Consciousness is awake, alert, confused, Pt confused at baseline. . Oriented to person. 12:45 Reassessment: Pt provided with food at this time. cm10 Vital Signs: 08:47 BP 178 / 92; Pulse 60; Resp 16; Temp 98; Pulse Ox 97% on R/A; Weight 73.03 kg; Height 5 ll1 ft. 6 in. ; Pain 2/10; 09:45 BP 168 / 89; Pulse 61; Resp 15; Pulse Ox 97% on R/A; ll1 10:00 BP 183 / 86; Pulse 65; Resp 16; Pulse Ox 94% on R/A; cm10 10:30 BP 177 / 87; Pulse 67; Resp 16; Pulse Ox 98% on R/A; cm10 11:15 BP 169 / 83; Pulse 61; Resp 16; Pulse Ox 97% on R/A; cm10 11:30 BP 176 / 79; Pulse 59; Resp 16; Pulse Ox 97% on R/A; cm10 12:45 BP 155 / 85; Pulse 56; Resp 16; Pulse Ox 100% on R/A; cm10 13:36 BP 172 / 78; cm10 08:47 Body Mass Index 25.99 (73.03 kg, 167.64 cm) ll1 08:47 Pain Scale: Adult ll1 [place] Coma Score: 08:51 Eye Response: spontaneous(4). Motor Response: obeys commands(6). Verbal Response: ll1 confused(4). Total: 14. Trauma Score (Adult): 08:51 Eye Response: spontaneous(1); Verbal Response: oriented(1); Motor Response: obeys ll1 commands(2); Systolic BP: > 89 mm Hg(4); Respiratory Rate: 10 to 29 per min(4); [place] Score: 15; Trauma Score: 12 ED Course: 08:35 Patient has correct armband on for positive identification. Bed in low position. Call ll1 light in reach. Side rails up X 1. Provided Education on: ER procedures and process. Client placed on continuous cardiac and pulse oximetry monitoring. NIBP monitoring applied. 08:36 Patient arrived in ED. mr 08:36 Sean Zavala DO is Private Physician. mr 08:49 Triage completed. ll1 08:49 Arm band placed on Patient placed in an exam room, on a stretcher. ll1 09:00 Alec Melton MD is Attending Physician. rn 09:25 Inserted saline lock: 20 gauge in right antecubital area, using aseptic technique. ll1 Blood collected. 09:34 Urinalysis w/ reflexes Sent. ll1 09:35 Straight cath inserted, using sterile technique, 14 Fr. Patient tolerated well. ll1 09:57 XRAY Femur RIGHT In Process Unspecified. EDMS 09:59 Shai Espinoza, CHLOE is Primary Nurse. ll1 10:02 Patient maintains SpO2 saturation greater than 95% on room air. ll1 10:04 Head C Spine Cap Wo Con In Process Unspecified. EDMS 10:23 EKG done, by ED staff, reviewed by Alec Melton MD. cm10 10:50 Armin Adams is Hospitalizing Provider. rn 11:46 Placed in gown. cm10 13:31 No provider procedures requiring assistance completed. Patient admitted, IV remains in cm10 place. 13:36 Thermoregulation: warm blanket given to patient. cm10 Administered Medications: 10:10 Drug: NS 0.9% IV 500 ml IV at bolus once Route: IV; Rate: bolus; Site: right ll1 antecubital; 11:48 Follow up: IV Status: Completed infusion; IV Intake: 500ml cm10 Medication: 13:36 VIS not applicable for this client. cm10 Intake: 11:48 IV: 500ml (IV Fluid); Total: 500ml. cm10 11:48 IV: 500ml; Total: 1000ml. cm10 Outcome: 10:50 Decision to Hospitalize by Provider. rn 13:32 Patient's length of stay in the Emergency Department was greater than 2 hours. cm10 13:35 Admitted to Med/surg accompanied by nurse, via stretcher, room 206, Report called to lexi Nance 13:35 Condition: stable 13:35 Instructed on the need for admit, 13:42 Patient left the ED. cm10 Signatures: Dispatcher [employer] EDMS Bettie Bae, Reg Reg mr Alec Melton MD MD rn Lewis, Lynsay, RN RN ll1 Marily Hale, RN RN cm10
--- NOTE | 2023-04-28 10:51 | EDPHYS ---
Physician Documentation [facility] Name: Matthew Avila Age: 78 yrs Sex: Male : 1945 Arrival Date: 04/28/2023 Time: 08:35 Bed 13 Private MD: Sean Zavala ED Physician Alec Melton HPI: 04/28 09:44 This 78 yrs old Male presents to ER via Wheelchair with complaints of Fall Injury. rn 09:44 Details of fall: The patient fell from an upright position, while walking. rn 09:44 Onset: The symptoms/episode began/occurred yesterday. Associated injuries: The patient rn sustained no obvious injury. Severity of symptoms: At their worst the symptoms were moderate, in the emergency department the symptoms are unchanged. The patient has not experienced similar symptoms in the past. Patient reports multiple falls over the last week. First fall last week was down a flight of stairs. reports patient with history of dementia, has multiple suitcases and bags packed and is constantly trying to leave the house. A week ago fell down a flight of stairs and did not appear injured at the time so did not seek medical attention. Patient's states has a slow shuffling gait and appears to tripped over his own feet. Has fallen several times in the last week. No syncope. Does not take blood thinners. Sugar has been okay. No infectious symptoms but does report episodes of diarrhea in the last 2 days. No known blood in stool. states it seems like he is having trouble walking on the right leg. Reports generalized weakness and malaise.. Historical: - Allergies: 08:49 No Known Allergies; ll1 - PMHx: 08:49 Hypercholesterolemia; Dementia; Hypertensive disorder; Type 2 Diabetes Mellitus; ll1 - PSHx: 08:49 Left shoulder sx; ll1 - Immunization history:: Adult Immunizations up to date. - Social history:: Smoking status: Patient denies any tobacco usage or history of. - Immunization history: Last tetanus immunization: - up to date. - Family history:: not pertinent. - Hospitalizations: : No recent hospitalization is reported. ROS: 09:44 Constitutional: Negative for fever, chills, and weight loss, Eyes: Negative for injury, rn pain, redness, and discharge, Neck: Negative for injury, pain, and swelling, Cardiovascular: Negative for chest pain, palpitations, and edema, Respiratory: Negative for shortness of breath, cough, wheezing, and pleuritic chest pain, Abdomen/GI: Positive for diarrhea Back: Negative for injury and pain, : Positive for increased urinary frequency but states has prostate problems MS/Extremity: Negative for injury and deformity, Skin: Negative for injury, rash, and discoloration, Neuro: Positive for generalized weakness and malaise. No seizure. Patient denies headache or focal weakness Exam: 09:44 Constitutional: This is a well developed, well nourished patient who is awake, alert, rn and in no acute distress. Smiling and nontoxic Head/Face: Normocephalic, atraumatic. Eyes: Pupils equal round and reactive to light, extra-ocular motions intact. ENT: Dry mucous membranes, no stridor Neck: No midline cervical tenderness Chest/axilla: Normal chest wall appearance and motion. Nontender with no deformity. No lesions are appreciated. Cardiovascular: Regular rate and rhythm. No pulse deficits. Respiratory: No increased work of breathing, no retractions or nasal flaring. Abdomen/GI: Soft, non-tender Back: No spinal tenderness. Skin: Warm, dry, no evidence of cellulitis MS/ Extremity: Pulses equal, no cyanosis. Neuro: Awake and alert, GCS 15, oriented to person. Cranial nerves II-XII grossly intact. Motor strength 4/5 in all extremities. Sensory grossly intact. Vital Signs: 08:47 BP 178 / 92; Pulse 60; Resp 16; Temp 98; Pulse Ox 97% on R/A; Weight 73.03 kg; Height 5 ll1 ft. 6 in. ; Pain 2/10; 09:45 BP 168 / 89; Pulse 61; Resp 15; Pulse Ox 97% on R/A; ll1 10:00 BP 183 / 86; Pulse 65; Resp 16; Pulse Ox 94% on R/A; cm10 10:30 BP 177 / 87; Pulse 67; Resp 16; Pulse Ox 98% on R/A; cm10 11:15 BP 169 / 83; Pulse 61; Resp 16; Pulse Ox 97% on R/A; cm10 11:30 BP 176 / 79; Pulse 59; Resp 16; Pulse Ox 97% on R/A; cm10 12:45 BP 155 / 85; Pulse 56; Resp 16; Pulse Ox 100% on R/A; cm10 13:36 BP 172 / 78; cm10 08:47 Body Mass Index 25.99 (73.03 kg, 167.64 cm) ll1 08:47 Pain Scale: Adult ll1 [place] Coma Score: 08:51 Eye Response: spontaneous(4). Motor Response: obeys commands(6). Verbal Response: ll1 confused(4). Total: 14. Trauma Score (Adult): 08:51 Eye Response: spontaneous(1); Verbal Response: oriented(1); Motor Response: obeys ll1 commands(2); Systolic BP: > 89 mm Hg(4); Respiratory Rate: 10 to 29 per min(4); [place] Score: 15; Trauma Score: 12 MDM: 09:00 Patient medically screened. rn 10:48 Differential diagnosis: abrasion, closed head injury, contusion, fracture, sprain, rn strain, Dehydration, electrolyte abnormality, medication side effect, hip fracture. Data reviewed: vital signs, nurses notes, radiologic studies, CT scan, plain films, and as a result, I will admit patient. Consideration of Admission/Observation Patient was admitted/placed on observation. Escalation of care including admission/observation considered. Counseling: I had a detailed discussion with the patient and/or guardian regarding the historical points, exam findings, and any diagnostic results supporting the discharge/admit diagnosis, lab results, radiology results, the need for further work-up and treatment in the hospital. 04/28 09:09 Order name: Basic Metabolic Panel; Complete Time: 10:44 rn 04/28 09:09 Order name: CBC with Diff; Complete Time: 10:44 rn 04/28 09:09 Order name: Urinalysis w/ reflexes; Complete Time: 10:44 rn 04/28 09:09 Order name: Hepatic Function; Complete Time: 10:44 rn 04/28 09:09 Order name: Magnesium; Complete Time: 10:44 rn 04/28 09:09 Order name: Protime (+inr); Complete Time: 10:44 rn 04/28 09:09 Order name: Ptt, Activated; Complete Time: 10:44 rn 04/28 09:09 Order name: Troponin High Sensitivity; Complete Time: 10:44 rn 04/28 09:44 Order name: Urine Culture EDMS 04/28 09:21 Order name: XRAY Femur RIGHT; Complete Time: 10:44 rn 04/28 10:04 Order name: Head C Spine Cap Wo Con; Complete Time: 10:44 EDMS 04/28 09:09 Order name: EKG; Complete Time: 09:09 rn 04/28 13:00 Order name: CONS Physician Consult EDMS 04/28 09:09 Order name: Labs collected and sent; Complete Time: 09:34 rn 04/28 09:09 Order name: Cardiac monitoring; Complete Time: 09:35 rn 04/28 09:09 Order name: EKG - Nurse/Tech; Complete Time: 09:35 rn 04/28 09:09 Order name: IV Saline Lock; Complete Time: 09:34 rn 04/28 09:09 Order name: O2 Per Protocol; Complete Time: 09:10 rn 04/28 09:09 Order name: O2 Sat Monitoring; Complete Time: 09:10 rn Administered Medications: 10:10 Drug: NS 0.9% IV 500 ml IV at bolus once Route: IV; Rate: bolus; Site: right ll1 antecubital; 11:48 Follow up: IV Status: Completed infusion; IV Intake: 500ml cm10 Disposition Summary: 04/28/23 10:50 Hospitalization Ordered Notes: Hospitalization Status: Inpatient Admission rn Provider: Armin Adams [facility]n [facility]n Condition: Stable rn Problem: new rn Symptoms: are unchanged rn Bed/Room Type: Standard rn Room Assignment: 206(04/28/23 13:13) eb Diagnosis - Fracture of unspecified part of neck of right femur rn - Muscle weakness (generalized) rn - Repeated falls rn Forms: - Medication Reconciliation Form rn - SBAR form rn - Leadership Thank You Letter rn Signatures: Dispatcher [employer] EDIL Alec Melton MD MD rn Botello, Elizabeth eb Lewis, Lynsay, RN RN ll1 Marily Hale RN RN cm10 Corrections: (The following items were deleted from the chart) 10:04 09:09 Head C Spine CAP W Con+CT.RAD.BRZ ordered. EDIL EDMS 13:13 10:50 rn eb
--- NOTE | 2023-04-28 13:37 | P.HP ---
Certification for Inpatient Patient admitted to: Inpatient With expected LOS: >2 Midnights Practitioner: I am a practitioner with admitting privileges, knowledge of patient current condition, hospital course, and medical plan of care. Services: Services provided to patient in accordance with Admission requirements found in Title 42 Section 412.3 of the Code of Federal Regulations Patient History Date of Service: 04/29/23 Reason for admission: acute right femur fracture History of Present Illness: Fredis Manriquez is a 78-year-old male with past medical history of dementia, hyperten mukesh, hyperlipidemia, diabetes mellitus IDDM, stage III kidney disease, and frequent falls and past surgical history of left shoulder who presents to the ED with complaints of frequent falls and most recently falling out of bed, also falling down the stairs. Right femur x-ray reports mildly impacted fracture of the proximal right femur. Dr. Muñiz was consulted and will operate in the morning. Initial vitals 7 BP 178 / 92; Pulse 60; Resp 16; Temp 98; Pulse Ox 97% on R/A; Laboratory evaluations are significant for H&H 11/34, neutrophils 78.9, BUN/creatinine 57/2.4, GFR 27, his serum glucose 172, magnesium 2.5, alk phos 123, PT/INR 13.1/1.20, APTT 31.6 UA positive for +1 blood, leukocyte esterase 75, RBC 5-10, white blood cells 20-30 Right femur x-ray reports mildly impacted fracture of the proximal right femur is present. The bones are diffusely demineralized. No dislocation. 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 CT head C-spine Without contrast reports no intracranial hemorrhage, hydrocephalus or extra-axial fluid collection. Moderate generalized brain atrophy is present with moderate periventricular and deep white matter chronic microvascular ischemic changes. No areas of brain edema or midline shift. The paranasal sinuses and mastoids are clear. The clavarium is intact. CT cervical spine without contrast reports no fracture or subluxation. Promine nt degenerative changes seen throughout the cervical spine. There is 7 mm of degenerative anterior elbow likely cysts is present C7 on T1. Prevertebral soft tissues are normal in thickness. Moderate bilateral carotid arthrosclerosis CT CAP without contrast report mildly impacted fracture proximal right femur. Significant fecal retention in the rectosigmoid colon. bilateral pulmonary nodules are present nonspecific. Matthew will be admitted for further treatment of right femur fracture, Dr. Muñiz has been consulted. Allergies No Known Allergies Allergy (Verified 05/16/22 09:27) Home Medications: Amlodipine Besylate 5 mg PO BID 05/13/22 Atorvastatin Calcium [Lipitor] 40 mg PO BEDTIME 05/13/22 Montelukast [Singulair] 10 mg PO DAILY 05/13/22 Multivitamin [One-Daily Multi-Vitamin] 1 each PO DAILY 05/13/22 Tamsulosin HCl 0.4 mg PO BEDTIME 05/13/22 Turmeric 400 mg PO DAILY 05/13/22 Venlafaxine HCl [Effexor XR] 150 mg PO DAILY 05/13/22 carvediloL [Carvedilol] 12.5 mg PO BID 05/13/22 Indapamide 1.25 mg PO DAILY 04/28/23 Insulin Glargine,Hum.rec.anlog [Toujeo Solostar] 14 units SQ DAILY 04/28/23 Quetiapine [Seroquel*] 25 mg PO BID 04/28/23 Ramipril 2.5 mg PO BEDTIME 04/28/23 Trazodone [Desyrel*] 25 mg PO BEDTIME PRN 04/28/23 clonazePAM [Clonazepam] 0.5 mg PO BID 04/28/23 - Past Medical/Surgical History -: Dementia -: HTN -: HLD -: Diabetes mellitus-IDDM -: Stage III kidney disease -: Frequent Falls -: Left shoulder surgery - Social History Smoking Status: Never smoker Alcohol use: No CD- Drugs: No Caffeine use: No Review of Systems is unable to be obtained (Dementia) Physical Examination - Physical Exam General: Alert, In no apparent distress, Demented HEENT: Atraumatic, Normocephalic, PERRLA Neck: Supple, 2+ carotid pulse no bruit, JVD not distended Respiratory: Clear to auscultation bilaterally, Normal air movement Cardiovascular: Normal pulses, Regular rate/rhythm, Normal S1 S2 Capillary refill: <2 Seconds Gastrointestinal: Normal bowel sounds, Soft and benign Musculoskeletal: No clubbing, No swelling, No contractures Integumentary: No breakdown, No significant lesion Neurological: Normal speech, Normal strength at 5/5 x4 extr, Normal tone - Studies Laboratory Data (last 24 hrs) 04/28/23 04/28/23 04/28/23 09:10 09:10 09:10 WBC 7.50 Hgb 11.9 L Hct 34.8 L Plt Count 201 PT 13.1 H INR 1.20 APTT 31.6 Sodium 140 Potassium 3.6 BUN 57 H Creatinine 2.40 H Glucose 172 H Magnesium 2.5 H Total Bilirubin 0.8 AST 17 ALT 21 Alkaline Phosphatase 123 H Assessment and Plan - Plan Assessment and plan Acute right proximal impacted Femur N.p.o. at midnight Dr. Muñiz consultedsurgery in the morning PT postop morphine, zofran PRN Dementia with aggitation Restart home medication Supportive care Haldol PRN Urinary tract infection POA Stage III kidney disease BUN/creatinine 57/2.4, GFR 27 Dr. Cook consulted [place] Diabetes mellitusIDDM Uses Toujeo at home- hold for now Accu-Chek with sliding scale insulin Serum glucose 127 History hypertension History HLD History of anxiety History of BPH Restart home medication DVT PPx SCDs for now until after surgery Full code LOS 72 hours Discharge Plan: [facility] Plan to discharge in: 72 Hours - Advance Directives Does patient have a Living Will: No Does patient have a Durable POA for Healthcare: No Time Spent Managing Pts Care (In Minutes): 50
[2023-04-28 14:43] VITALS: BMI 25.9
[2023-04-28] MEDS ORDERED: ONDANSETRON 4 MG/2 ML VIAL IV PRN (15:59)
[2023-04-28] MEDS: INSULIN REGULAR (HUMAN) 100 UNIT/ML SQ SCH (16:30)
[2023-04-28] MEDS: CEFTRIAXONE 1,000 MG in NA CHLORIDE 0.9% 50 ML IVPB SCH (16:33)
[2023-04-28] MEDS: HALOPERIDOL LACT 5 MG/ML INJ IV PRN (16:33)
[2023-04-28] MEDS: NA CHLORIDE 0.9% 1,000 ML IV SCH (16:33)
[2023-04-28] MEDS: HALOPERIDOL LACT 5 MG/ML INJ ONE (17:02)
[2023-04-28] MEDS: HALOPERIDOL LACT 5 MG/ML INJ IV ONE (17:04)
[2023-04-28] MEDS: ZIPRASIDONE MESYLA 20 MG/VIAL IM ONE (17:27)
[2023-04-28] MEDS: WATER FOR INJ,STERILE 10 ML IM PRN (17:27)
[2023-04-28] MEDS: TAMSULOSIN 0.4 MG SR CAP PO SCH (19:32)
[2023-04-28] MEDS: ATORVASTATIN 40 MG TAB PO SCH (19:32)
[2023-04-28] MEDS: QUETIAPINE 25 MG TAB PO SCH (19:32)
[2023-04-28] MEDS: TRAZODONE 50 MG TABLET PO SCH (20:26)
[2023-04-28] MEDS: carvediloL 12.5 MG TAB PO SCH (20:27)
[2023-04-28] MEDS: AMLODIPINE 5 MG TAB PO SCH (20:27)
[2023-04-28] MEDS: ACETAMINOPHEN 500 MG TAB PO PRN (20:27)
[2023-04-28] MEDS: MORPHINE 2 MG/ML SYR IV PRN (23:01)
[2023-04-29] MEDS ORDERED: LIDOCAINE 2% MPF 5 ML VIAL ONE (07:31)
[2023-04-29] MEDS ORDERED: Phenylephrine HCl 10 MG/ML 1 ML VIAL ONE (07:31)
[2023-04-29] MEDS ORDERED: propofoL 200 MG/20 ML VIAL IV ONE (07:31)
[2023-04-29] MEDS ORDERED: NS 0.9% VIAL 10 ML ONE (07:31)
[2023-04-29] MEDS ORDERED: FENTANYL CITR 100 MCG/2 ML ONE (07:32)
[2023-04-29] MEDS ORDERED: MIDAZOLAM HCL 2 MG/2 ML INJ ONE (07:32)
[2023-04-29] MEDS: CEFAZOLIN SODIUM 1 GM/VIAL ONE (08:30)
[2023-04-29] MEDS ORDERED: EPHEDRINE SULF 50 MG/ML VIAL ONE (08:32)
[2023-04-29] MEDS: NA CHLORIDE 0.9% 1,000 ML ONE (09:00)
--- NOTE | 2023-04-29 09:16 | P.BOP ---
Preoperative diagnosis: right femoral neck fracture Postoperative diagnosis: same Primary procedure: closed reduction percutaneous screw fixation right femoral neck fracture Stack Yield Engineer: NONE,NONE Estimated blood loss: 20 cc Specimen: none Findings: see dictation Anesthesia: General Complications: None Implants: 3- 6.5 mm cannulated screws Fluids & blood products: per anesthesia record Transferred to: Recovery Room Condition: Good
[2023-04-29] MEDS ORDERED: ONDANSETRON 4 MG/2 ML VIAL ONE (09:21)
[2023-04-29] MEDS: MEPERIDINE HCL 25 MG/ML SYR ONE (09:44)
[2023-04-29 10:36] LABS: Absolute Lymphocytes (CBC) 0.6 K/uL (0.7-4.9); Hematocrit 38.3 % (39.6-49.0); Lymphocytes % 6.3 % (15.3-44.8); MCV 88.5 fL (80-100); MPV 7.5 fL (7.6-11.3); Platelets 182 thou/uL (152-406); RBC Red Blood Cell Count 4.33 M/uL (4.33-5.43)
[2023-04-29 10:48] LABS: Magnesium 2.1 mg/dL (1.6-2.4); Phosphorus 3.4 mg/dL (2.5-4.9); Potassium 3.6 mEq/L (3.5-5.1)
--- NOTE | 2023-04-29 10:59 | CON ---
Date of Consultation: 04/29/2023 Reason For Consult: Right hip pain. History Of Present Illness: Mr. Castro is a 78-year-old male who was brought into the emergency kristopher yesterday after having difficulty with mobilization secondary to multiple falls. He had some weakn ess and pain in the right leg. He had x-rays and CAT scan in the emergency room that demonstrated a minimally displaced right femoral neck fracture. The patient denies any other musculoskeletal compla ints at this time. Review of Systems: As above, otherwise negative. Past Medical History: Includes dementia, hypertension, hyperlipidemia, diabetes, kidney disease. Past Surgical History: Includes left shoulder surgery. Allergies: NO KNOWN DRUG ALLERGIES. Social History: Denies tobacco, alcohol, or drug use. Lives at home with his . Medications: Per medication reconciliation form. Physical Examination: General: No apparent distress. HEENT: Normocephalic, atraumatic. Neck: Supple. Cardiovascular: Brisk cap refill to all digits. Chest: Nonlabored breathing. Abdomen: Nondistended. Psychiatric: Some confusion with dementia. Musculoskeletal: Bilateral upper extremities functional range of motion without pain. No gross defo rmities. No obvious dislocations. Left lower extremity functional range of motion without pain. No gross deformities. No obvious dislocations. Right lower extremity, some pain with range of motion of the right hip. No significant skin changes. No tenderness over the knee, tibia, or foot or ankle . Moves toes grossly. Diagnostic Studies: X-rays and CAT scan demonstrated a minimally displaced right femoral neck fractu re. Assessment And Plan: Matthew is a 78-year-old male with a right femoral neck fracture. I discussed with the patient and his at length the diagnosis as well as treatment plan. We will proceed wit h operative treatment including closed reduction, percutaneous screw fixation. Risks and benefits as sociated with the procedure were discussed with the patient's at length and she expressed unders tanding and proceed with surgery later this morning. Physical therapy will be consulted postoperativ latia. The patient and his will be transferred to a rehab versus fpc facility. CV/MODL Voice ID: [id number] Report ID: [id number]
--- NOTE | 2023-04-29 10:59 | RAD REPORT ---
EXAM DESCRIPTION: RAD - Hip Right 2 View - 04/29/2023 9:50 am CLINICAL HISTORY: postop COMPARISON: <Comparisons> TECHNIQUE: Right hip, 2 views. FINDINGS: Right femoral neck cannulated fixation screws have been placed, with known impacted fractu re at the head/neck junction. Hardware is in expected location. Postsurgical changes in the adjacent soft tissues. IMPRESSION: Postoperative right hip findings as above with no unexpected finding.
--- NOTE | 2023-04-29 11:00 | RAD REPORT ---
EXAM DESCRIPTION: XA - Hip in OR Right 2 View - 04/29/2023 10:46 am CLINICAL HISTORY: RIGHT HIP NAILING COMPARISON: None available. FINDINGS: Fourteen Images were sent to PACS, documenting fluoroscopy use during right hip internal f ixation. No radiologist was available for the procedure, nor will any image interpretation he provide d. Please refer to the procedural report for additional details. Fluoroscopy time: 0.8 Minutes. IMPRESSION: Documentation of fluoroscopy utilization as above.
--- NOTE | 2023-04-29 11:08 | OP ---
Date of Procedure: 04/29/2023 Surgeon: Neal Muñiz MD Preoperative Diagnosis: Right femoral neck fracture. Postoperative Diagnosis: Right femoral neck fracture. Procedure Performed: Closed reduction, percutaneous screw fixation of right femoral neck fracture. Anesthesia: General LMA. Fluids: Per Anesthesia record. Ebl: 20 cc. Complications: None. Implants: Three 6.5 mm cannulated screws. Indication For Procedure: Matthew is a 78-year-old male who sustained multiple falls over the last w [place] with subsequent pain to the right hip. Preoperative imaging demonstrated a displaced right femor al neck fracture. We discussed with the patient and his at length. Risks, benefits associated with operative and nonoperative treatment measures, expressed understanding and elected to proceed wi th operative treatment. Description Of Procedure: After informed consent was obtained, the patient was identified in the pre operative holding area. The right lower extremity was marked. He was then brought back to the opera ting room, placed under general LMA anesthesia. Then transferred to the fracture table in the supine fashion. His extremities were well padded. Fluoroscopic imaging was used to confirm that there was minimal displacement of the fracture and percutaneous screw fixation would be appropriate. [facility] t lower extremity was then prepped and draped in usual sterile fashion. A time-out was initiated. C orrect patient and procedure were confirmed and identified. The patient did receive his preoperative prophylactic antibiotics. A small stab incision was placed over the lateral proximal thigh and a ca theter was placed over the lateral cortex of the proximal femur. Guide pin was then placed in the ce ntral portion of the femoral neck and head right above the medial calcar. Two guide pins were then placed in anterior superior position within the femoral neck and head and the posterior sup erior position within femoral neck and head. This was then inverted in triangle configuration. Oute r cortex was then drilled followed by measuring of the guide pins and three 6.5 mm short thread cannu lated screws were placed for fixation of the fracture. Final x-rays were taken and there was overall good alignment of the fracture as well as placement of the hardware. No intra-articular screws were noted. Wounds were then irrigated thoroughly with normal saline. Skin was approximated using 2-0 V icryl and angela. Sterile dressings were applied. The patient was awakened and transferred to PACU in stable condition. Postoperative Plan: The patient will be touchdown weightbearing his right lower extremity. Physical Therapy will be consulted today with mobilization. He will follow up and will likely be discharged to a [place] [facility] facility versus rehab. CV/MODL Voice ID: [id number] Report ID: [id number]
[2023-04-29] MEDS: MONTELUKAST 10 MG TAB PO SCH (12:16)
[2023-04-29] MEDS: INDAPAMIDE 1.25 MG TAB PO SCH (12:23)
[2023-04-29] MEDS: VENLAFAXINE HCL 75 MG TABLET PO SCH (12:23)
--- NOTE | 2023-04-29 12:32 | P.PN ---
Date of Service: 04/29/23 Subjective ROS 10 point ROS as noted above, otherwise negative Physical Exam General: Awake, unstable, Demented HEENT: Atraumatic, Normocephalic, PERRLA Neck: Supple, 2+ carotid pulse no bruit, JVD not distended Respiratory: Clear to auscultation bilaterally, Normal air movement Cardiovascular: Normal pulses, RRR, S1 S2 present, Capillary refill: <2 Seconds Gastrointestinal: Normal bowel sounds, Soft and benign, NT/ND Musculoskeletal: No clubbing, No swelling, No contractures Integumentary: No breakdown, No significant lesion Neurological: Normal speech, Normal strength at 5/5 x4 extr, Normal tone Vitals Reviewed Problem list Acute right proximal impacted Femur Dementia with agitation Urinary tract infection POA Stage III kidney disease Diabetes mellitusIDDM History hypertension History HLD History of anxiety History of BPH Assessment and Plan Acute right proximal impacted Femur Dr. Muñiz consultedsurgery today PT postop morphine, zofran PRN Dementia with agitation continue home medication Supportive care Haldol PRN Urinary tract infection POA Stage III kidney disease BUN/creatinine 42/1.85, GFR 37 Dr. Cook consulted Rocephin Diabetes mellitusIDDM Uses Toujeo at home- hold for now Accu-Chek with sliding scale insulin Serum glucose 127 History hypertension History HLD History of anxiety History of BPH Continue home medication DVT PPx Lovenox per Dr. Muñiz Full code LOS 72 hours
--- NOTE | 2023-04-29 12:34 | P.PN ---
Date of Service: 04/29/23 Subjective Surgery today, tolerated procedure well at bedside. ROS 10 point ROS as noted above, otherwise negative Physical Exam General: Awake, unstable, Demented HEENT: Atraumatic, Normocephalic, PERRLA Neck: Supple, 2+ carotid pulse no bruit, JVD not distended Respiratory: Clear to auscultation bilaterally, Normal air movement Cardiovascular: Normal pulses, RRR, S1 S2 present, Capillary refill: <2 Seconds Gastrointestinal: Normal bowel sounds, Soft and benign, NT/ND Musculoskeletal: No clubbing, No swelling, No contractures Integumentary: No breakdown, No significant lesion Neurological: Normal speech, Normal strength at 5/5 x4 extr, Normal tone Vitals Reviewed Problem list Acute right proximal impacted Femur Dementia with agitation Urinary tract infection POA Stage III kidney disease Diabetes mellitusIDDM History hypertension History HLD History of anxiety History of BPH Assessment and Plan Acute right proximal impacted Femur Dr. Muñiz consultedsurgery today PT postop- evaluation for placement morphine, zofran PRN Dementia with agitation continue home medication Supportive care Haldol PRN Urinary tract infection POA Stage III kidney disease BUN/creatinine 42/1.85, GFR 37 Dr. Cook consulted Rocephin Diabetes mellitusIDDM Uses Toujeo at home- hold for now Accu-Chek with sliding scale insulin Serum glucose 156 History hypertension History HLD History of anxiety History of BPH Continue home medication DVT PPx Lovenox per Dr. Muñiz Full code LOS 72 hours Dispo SNF
[2023-04-29] MEDS: clonazePAM 0.5 MG TAB PO PRN (18:00)
[2023-04-29] MEDS: TRAMADOL HCL 50 MG TAB PO PRN (18:01)
[2023-04-29] MEDS: ZIPRASIDONE MESYLA 20 MG/VIAL IM ONE ×2 (18:25→18:29)
[2023-04-29] MEDS: WATER FOR INJ,STERILE 10 ML IM PRN (18:40)
[2023-04-29] MEDS ORDERED: MORPHINE 2 MG/ML SYR IV PRN (19:47)
[2023-04-30 04:29] LABS: Absolute Lymphocytes (CBC) 0.9 K/uL (0.7-4.9); Hematocrit 32.8 % (39.6-49.0); Lymphocytes % 11.9 % (15.3-44.8); MCV 88.9 fL (80-100); MPV 7.7 fL (7.6-11.3); Platelets 172 thou/uL (152-406); RBC Red Blood Cell Count 3.69 M/uL (4.33-5.43)
[2023-04-30 04:43] LABS: Phosphorus 3.9 mg/dL (2.5-4.9); Potassium 3.8 mEq/L (3.5-5.1)
[2023-04-30] MEDS: ENOXAPARIN 30 MG/0.3 ML SQ SCH (09:32)
[2023-04-30] MEDS: POTASSIUM CL SA 10 MEQ TAB PO ONE (09:32)
--- NOTE | 2023-04-30 14:45 | P.PN ---
Date of Service: 04/30/23 Subjective Awake and pleasant this morning, continues to attempt to climb out of bed Remains confused Does not appear to be in pain Blood pressure better controlled ROS 10 point ROS as noted above, otherwise negative Physical Exam General: Awake, unstable Dementia HEENT: Atraumatic, Normocephalic, PERRLA Neck: Supple, 2+ carotid pulse no bruit, JVD not distended Respiratory: Clear to auscultation bilaterally, Normal air movement Cardiovascular: Normal pulses, regular rate and rhythm, S1 S2 present, no murmur noted Capillary refill: <2 Seconds Gastrointestinal: Normal bowel sounds, Soft and benign, NT/ND on palpation Musculoskeletal: No clubbing, No swelling, No contractures, dressing to right hip C/D/I, 2+ peripheral pulses Integumentary: No breakdown, No significant lesion Neurological: Normal speech, Normal strength at 5/5 x4 extr, Normal tone Vitals Reviewed Problem list Acute right proximal impacted Femur Dementia with agitation Urinary tract infection POA Stage III kidney disease Diabetes mellitusIDDM History hypertension History HLD History of anxiety History of BPH Assessment and Plan Acute right proximal impacted Femur Dr. Muñiz consultedsurgery today PT postop- evaluation for placement morphine, zofran PRN Dementia with agitation continue home medication Supportive care Haldol PRN Sitter in the room Urinary tract infection POA Stage III kidney disease BUN/creatinine 46/1.98, GFR 34 Dr. Cook consulted Rocephin changed to zosyn per urine culture Urine culture showing Enterococcus Faecalis Diabetes mellitusIDDM Uses Toujeo at home- hold for now Accu-Chek with sliding scale insulin Serum glucose 144 History hypertension History HLD History of anxiety History of BPH Continue home medication DVT PPx Lovenox per Dr. Muñiz Full code LOS 72 hours Dispo SNF or inpatient rehab <Charito Carrera - Last Filed: 04/30/23 14:46> Patient seen and examined with Ms. Radha Carrera. Patient with dementia and has been some down. 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 Patient has been agitated especially during the night and has been needing Haldol as needed. He is also on Seroquel twice a day. Patient and spouse would like to explore options for rehab. Continue PT. Continue home dose Seroquel Haldol as needed for agitation. Continue antibiotics for UTI. <todd loco - Last Filed: 05/01/23 18:06>
[2023-04-30] MEDS: PIPER TAZO 3.375 GM in NA CHLORIDE 0.9% 100 ML IV SCH (16:16)
[2023-05-01 06:23] LABS: Absolute Lymphocytes (CBC) 0.7 K/uL (0.7-4.9); Hematocrit 33.1 % (39.6-49.0); MCV 87.6 fL (80-100); MPV 7.6 fL (7.6-11.3); Platelets 164 thou/uL (152-406); RBC Red Blood Cell Count 3.78 M/uL (4.33-5.43)
[2023-05-01 06:35] LABS: Magnesium 2.1 mg/dL (1.6-2.4); Phosphorus 2.9 mg/dL (2.5-4.9); Potassium 3.7 mEq/L (3.5-5.1)
[2023-05-01] MEDS: POTASSIUM CL SA 10 MEQ TAB PO ONE (08:12)
--- NOTE | 2023-05-01 10:37 | P.CNS ---
Date of Consult: 05/01/23 Reason for Consult: ANTONI/ CKD Requesting Physician: todd loco Chief Complaint: acute right femur fracture History of Present Illness: Fredis Manriquez is a 78-year-old male with past medical history of dementia, hypertension, hyperlipidemia, diabetes mellitus IDDM, stage III kidney disease, and frequent falls and past surgical history of left shoulder who presents to the ED with complaints of frequent falls and most recently falling out of bed, also falling down the stairs. Right femur x-ray reports mildly impacted fracture of the proximal right femur. Dr. Muñiz was consulted and will operate in the morning. 09:44 This 78 yrs old Male presents to ER via Wheelchair with complaints of Fall Injury. rn 09:44 Details of fall: The patient fell from an upright position, while walking. rn 09:44 Onset: The symptoms/episode began/occurred yesterday. Associated injuries: The patient rn sustained no obvious injury. Severity of symptoms: At their worst the symptoms were moderate, in the emergency department the symptoms are unchanged. The patient has not experienced similar symptoms in the past. Patient reports multiple falls over the last week. First fall last week was down a flight of stairs. reports patient with history of dementia, has multiple suitcases and bags packed and is constantly trying to leave the house. A week ago fell down a flight of stairs and did not appear injured at the time so did not seek medical attention. Patient's states has a slow shuffling gait and appears to tripped over his own feet. Has fallen several times in the last week. No syncope. Does not take blood thinners. Sugar has been okay. No infectious symptoms but does report episodes of diarrhea in the last 2 days. No known blood in stool. states it seems like he is having trouble walking on the right leg. Reports generalized weakness and malaise Case reviewed with the at the bedside Allergies No Known Allergies Allergy (Verified 05/16/22 09:27) Home medications list reviewed: Yes Home Medications: Amlodipine Besylate 5 mg PO BID 05/13/22 Atorvastatin Calcium [Lipitor] 40 mg PO BEDTIME 05/13/22 Montelukast [Singulair] 10 mg PO DAILY 05/13/22 Multivitamin [One-Daily Multi-Vitamin] 1 each PO DAILY 05/13/22 Tamsulosin HCl 0.4 mg PO BEDTIME 05/13/22 Turmeric 400 mg PO DAILY 05/13/22 Venlafaxine HCl [Effexor XR] 150 mg PO DAILY 05/13/22 carvediloL [Carvedilol] 12.5 mg PO BID 05/13/22 Indapamide 1.25 mg PO DAILY 04/28/23 Insulin Glargine,Hum.rec.anlog [Toujeo Solostar] 14 units SQ DAILY 04/28/23 Quetiapine [Seroquel*] 25 mg PO BID 04/28/23 Ramipril 2.5 mg PO BEDTIME 04/28/23 Trazodone [Desyrel*] 25 mg PO BEDTIME PRN 04/28/23 clonazePAM [Clonazepam] 0.5 mg PO BID 04/28/23 - Past Medical/Surgical History Diabetic: Yes -: Dementia -: HTN -: HLD -: IDDM Type II -: CKD III (Dr. Cook/ Dr. Hernandez) -: Frequent Falls -: Left shoulder surgery - Social History Smoking Status: Unknown if ever smoked Alcohol use: No CD- Drugs: No Caffeine use: No Review of Systems is unable to be obtained (Dementia) Physical Examination Temp Pulse Resp BP Pulse Ox 98.8 F 76 16 193/97 H 92 05/01/23 07:37 05/01/23 07:37 05/01/23 07:37 05/01/23 07:37 05/01/23 07:37 General: In no apparent distress HEENT: Atraumatic Neck: Supple Respiratory: Clear to auscultation bilaterally Cardiovascular: No edema, Regular rate/rhythm Gastrointestinal: Non-distended, No guarding Musculoskeletal: No clubbing, No contractures Integumentary: No rashes, No cyanosis Blood work reviewed in the chart Imagings Data: EXAM DESCRIPTION: RAD - Femur Right - 04/28/2023 9:55 am CLINICAL HISTORY: PAIN COMPARISON: No comparisons FINDINGS: Mildly impacted fracture of the proximal right femur is present. The bones are diffusely demineralized. No dislocation. 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 Conclusions/Impression: Stage I ANTONI in the setting of hypovolemia CKD III -No NSAIDs -Change IVF 1/2NS Hypokalemia -Replete prn HTN with CKD -Continue Amlodipine -Continue Coreg Increase Ramipril 5mg qhs -Change IVF 1/2NS DM II with CKD -RISS Anemia in chronic illness -Monitor H&H BPH with LUTS -Continue tamsulosin Hospitalist and ER notes reviewed Thank you kindly for the consultation
[2023-05-01] MEDS: NACHLORIDE 0.45% 1,000 ML IV SCH (11:49)
--- NOTE | 2023-05-01 14:40 | EKG ---
Test Date: 2023-04-28 Test Time: 10:16:52 Furnace Keeper: YUE MEASUREMENT RESULTS: Intervals: Rate: 61 NC: QRSD: 106 QT: 452 QTc: 455 [place]: P: NC: QRS: 1 T: -6 INTERPRETIVE STATEMENTS: Junctional rhythm Minimal voltage criteria for LVH, may be normal variant Nonspecific ST and T wave abnormality Abnormal ECG Compared to ECG 05/21/2022 15:51:04 Junctional rhythm now present Left ventricular hypertrophy now present ST (T wave) deviation now present Electronically Signed On 05-01-23 14:30:56 VEHICLE MAINTENANCE SUPERVISOR by Ar Boss
--- NOTE | 2023-05-01 18:35 | P.PN ---
Date of Service: 05/01/23 Subjective Sleeping but easily awaken Therapy working with him ROS 10 point ROS as noted above, otherwise negative Physical Exam General: Awake, unstable Dementia, confused and nonverbal HEENT: Atraumatic, Normocephalic, PERRLA Neck: Supple, 2+ carotid pulse no bruit, JVD not distended Respiratory: Clear to auscultation bilaterally, Normal air movement, on RA Cardiovascular: Normal pulses, RRR, Normal S1 S2, no murmur noted Capillary refill: <2 Seconds Gastrointestinal: Normal bowel sounds, Soft and benign, NT/ND on palpation Musculoskeletal: No clubbing, No swelling, No contractures, dressing to right hip C/D/I, 2+ peripheral pulses Integumentary: No breakdown, No significant lesion Neurological: Nonverbal, Normal strength at 5/5 x4 extr, Normal tone Vitals Reviewed Problem list Acute right proximal impacted Femur Dementia with agitation Urinary tract infection POA Stage III kidney disease Diabetes mellitusIDDM History hypertension History HLD History of anxiety History of BPH Assessment and Plan Acute right proximal impacted Femur Dr. Muñiz consultedsurgery today PT postop morphine, zofran PRN Dressing C/D/I Dementia with agitation continue home medication Supportive care Haldol PRN Sitter in the room Urinary tract infection POA Stage III kidney disease BUN/creatinine 41/1.86, GFR 36 Dr. Cook consulted Continue zosyn per urine culture Urine culture showing Enterococcus Faecalis Diabetes mellitusIDDM Uses Toujeo at home- hold for now Accu-Chek with sliding scale insulin Serum glucose 135 History hypertension History HLD History of anxiety History of BPH Continue home medication DVT PPx Lovenox per Dr. Muñiz Full code LOS 72 hours Dispo SNF or inpatient rehab
[2023-05-01] MEDS: ramipriL 5 MG CAP PO SCH (19:59)
[2023-05-02] MEDS ORDERED: HALOPERIDOL LACT 5 MG/ML INJ IM PRN (04:30)
[2023-05-02] MEDS: HALOPERIDOL LACT 5 MG/ML INJ ONE (04:33)
[2023-05-02] MEDS: HALOPERIDOL LACT 5 MG/ML INJ IM ONE (04:36)
[2023-05-02 06:28] LABS: Absolute Lymphocytes (CBC) 0.5 K/uL (0.7-4.9); Hematocrit 29.7 % (39.6-49.0); Lymphocytes % 6.6 % (15.3-44.8); MCV 87.3 fL (80-100); MPV 7.5 fL (7.6-11.3); Platelets 176 thou/uL (152-406)
[2023-05-02 06:47] LABS: Phosphorus 2.8 mg/dL (2.5-4.9); Potassium 3.6 mEq/L (3.5-5.1)
--- NOTE | 2023-05-02 08:34 | P.PN ---
Date of Service: 05/02/23 Subjective Drowsy this morning Received Haldol overnight/early AM for agitation Sitter present at bedside ROS 10 point ROS as noted above, otherwise negative Physical Exam General: Awake, Dementia, confused and nonverbal HEENT: Atraumatic, Normocephalic, PERRLA Neck: Supple, 2+ carotid pulse no bruit, JVD not distended Respiratory: Clear to auscultation bilaterally, Normal air movement, on RA Cardiovascular: Normal pulses, RRR, Normal S1 S2, no murmur noted Capillary refill: <2 Seconds Gastrointestinal: Normal bowel sounds, Soft and benign, NT/ND on palpation Musculoskeletal: No clubbing, No swelling, No contractures, dressing to right hip C/D/I, 2+ peripheral pulses Integumentary: No breakdown, No significant lesion Neurological: Nonverbal, Normal strength at 5/5 x4 extr, Normal tone Vitals Reviewed Problem list Acute right proximal impacted Femur Dementia with agitation Urinary tract infection POA Stage III kidney disease Diabetes mellitusIDDM History hypertension History HLD History of anxiety History of BPH Plan Acute right proximal impacted Femur S/P closed reduction percutaneous screw fixation right femoral neck fracture 04/29 Dr. 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 Muñiz Full code LOS 24 to 48 hours Dispo SNF
[2023-05-02] MEDS: POTASSIUM CL SA 10 MEQ TAB PO ONE (08:46)
--- NOTE | 2023-05-02 20:24 | P.PN ---
Date of Service: 05/02/23 Vital Signs Temp Pulse Resp BP Pulse Ox 97.1 F 59 16 162/85 H 93 05/02/23 16:00 05/02/23 16:00 05/02/23 16:00 05/02/23 16:00 05/02/23 16:00 Medications Acetaminophen (Acetaminophen 500 Mg Tab) 500 mg PO Q8H PRN PRN Reason: Pain scale 2-4 (Mild)/Temp Last Admin: 04/28/23 20:27 Dose: 500 mg Amlodipine Besylate (Amlodipine 5 Mg Tab) 5 mg PO BID [facility] Last Admin: 05/02/23 09:07 Dose: 5 mg Atorvastatin Calcium (Atorvastatin 40 Mg Tab) 40 mg PO BEDTIME [facility] Last Admin: 05/01/23 19:58 Dose: 40 mg Carvedilol (Carvedilol 12.5 Mg Tab) 12.5 mg PO BID [facility] Last Admin: 05/02/23 09:07 Dose: 12.5 mg Clonazepam (Clonazepam 0.5 Mg Tab) 0.5 mg PO BID PRN PRN Reason: ANXIETY Last Admin: 05/02/23 04:16 Dose: 0.5 mg Enoxaparin Sodium (Enoxaparin 30 Mg/0.3 Ml) 30 mg SQ DAILY [facility] Last Admin: 05/02/23 08:46 Dose: 30 mg Haloperidol Lactate (Haloperidol Lact 5 Mg/Ml Inj) 2 mg IV Q4H PRN PRN Reason: ANXIETY Last Admin: 05/02/23 18:55 Dose: 2 mg Piperacillin Sod/Tazobactam (Sod 3.375 gm/ Sodium Chloride) 100 mls @ 25 mls/hr IV Q8HR [facility] Last Admin: 05/02/23 17:09 Dose: 100 mls Insulin Human Regular (Insulin Regular (Human) 100 Unit/Ml) 0 unit SQ ACHS [facility]; Protocol Last Admin: 05/02/23 16:25 Dose: Not Given Montelukast Sodium (Montelukast 10 Mg Tab) 10 mg PO DAILY [facility] Last Admin: 05/02/23 08:46 Dose: 10 mg Morphine Sulfate (Morphine 2 Mg/Ml Syr) 2 mg IV Q4H PRN PRN Reason: Pain scale 8-10 (Severe) Ondansetron HCl (Ondansetron 4 Mg/2 Ml Vial) 4 mg IV Q6H PRN PRN Reason: NAUSEA / VOMITING Quetiapine Fumarate (Quetiapine 25 Mg Tab) 25 mg PO BID [facility] Last Admin: 05/02/23 08:47 Dose: 25 mg Ramipril (Ramipril 5 Mg Cap) 5 mg PO BEDTIME [facility] Last Admin: 05/01/23 19:59 Dose: 5 mg Sterile Water (Water For Inj,Sterile 10 Ml) 1.2 ml IM UD PRN PRN Reason: DILUTION OF MED Last Admin: 04/28/23 17:27 Dose: 1.2 ml Sterile Water (Water For Inj,Sterile 10 Ml) 1.2 ml IM UD PRN PRN Reason: DILUTION OF MED Last Admin: 04/29/23 18:40 Dose: 1.2 ml Tamsulosin HCl (Tamsulosin 0.4 Mg Sr Cap) 0.4 mg PO BEDTIME [facility] Last Admin: 05/01/23 20:00 Dose: 0.4 mg Tramadol HCl (Tramadol Hcl 50 Mg Tab) 50 mg PO Q6H PRN PRN Reason: Pain scale 5-7 (Moderate) Last Admin: 04/29/23 18:01 Dose: 50 mg Trazodone HCl (Trazodone 50 Mg Tablet) 25 mg PO BEDTIME [facility] Last Admin: 05/01/23 19:59 Dose: 25 mg Venlafaxine HCl (Venlafaxine Hcl 75 Mg Tablet) 150 mg PO DAILY [facility] Last Admin: 05/02/23 08:46 Dose: 150 mg Microbiology Results 04/28/23 09:25 Clean Catch Urine [place] Count - Final >100,000 CFU/ML. 04/28/23 09:25 Clean Catch Urine - Final Enterococcus Faecalis Assessment/ Plan: Nephrology No dyspnea No chest pain No acute events overnight Limited IH/ ROS due to dementia Case reviewed with the and patient Vitals, medications, blood work and imaging reviewed in the chart General: In no apparent distress HEENT: Atraumatic Neck: Supple Respiratory: Clear to auscultation bilaterally Cardiovascular: No edema, Regular rate/rhythm Gastrointestinal: Non-distended, No guarding Musculoskeletal: No clubbing, No contractures Integumentary: No rashes, No cyanosis Blood work reviewed in the chart Imagings Data: EXAM DESCRIPTION: RAD - Femur Right - 04/28/2023 9:55 am CLINICAL HISTORY: PAIN COMPARISON: No comparisons FINDINGS: Mildly impacted fracture of the proximal right femur is present. The bones are diffusely demineralized. No dislocation. 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 Conclusions/Impression: Stage I ANTONI in the setting of hypovolemia CKD III -No NSAIDs -Continue IVF Hypokalemia -Replete prn HTN with CKD -Continue Amlodipine -Continue Coreg -Continue Ramipril DM II with CKD -RISS Anemia in chronic illness -Monitor H&H BPH with LUTS -Continue tamsulosin Hospitalist notes reviewed
[2023-05-02] MEDS: Ringers Lactate 1,000 ML IV SCH (20:51)
[2023-05-03 04:15] LABS: Absolute Lymphocytes (CBC) 0.7 K/uL (0.7-4.9); Hematocrit 30.3 % (39.6-49.0); Lymphocytes % 11.2 % (15.3-44.8); MCV 87.2 fL (80-100); MPV 7.3 fL (7.6-11.3); Platelets 177 thou/uL (152-406); RBC Red Blood Cell Count 3.48 M/uL (4.33-5.43)
[2023-05-03 04:39] LABS: Phosphorus 2.8 mg/dL (2.5-4.9); Potassium 3.8 mEq/L (3.5-5.1)
[2023-05-03] MEDS: POTASSIUM CL SA 10 MEQ TAB PO ONE (08:04)
[2023-05-03 08:52] VITALS: O2SAT 95
[2023-05-03] MEDS: POLYETHYL GLY 3350 17 GM/DOSE PO ONE (09:37)
--- NOTE | 2023-05-03 10:59 | P.PN ---
Subjective Date of Service: 05/02/23 Chief Complaint: s/p CRPP R hip Subjective: No new changes Physical Examination - Vital Signs Temperature: 98.6 F Blood Pressure: 180/84 Pulse: 71 Respirations: 18 Pulse Ox (%): 95 - Physical Exam General: In no apparent distress Musculoskeletal: Other (RLE: dressing c/d/i; moves toes grossly) Assessment And Plan - Plan Matthew is a 78 yo male s/p CRPP right hip POD #3 -PT as tolerated; touchdown weightbearing right lower extremity -Await SNF placement; -Lovenox for DVT prophylaxis
[2023-05-03 12:14] VITALS: BP 155/79; TEMP 98
--- NOTE | 2023-05-03 13:19 | P.DS ---
Admission Date: 04/28/23 Discharge Date: 05/03/23 Disposition: TRANSFER TO SNF - REHAB Discharge Condition: FAIR Reason for Admission: s/p CRPP R hip Consultations: Orthopedics Dr. Muñiz NephrologyDr. Cook Procedures: closed reduction with percutaneous screw fixation of the right femoral neck on 04/29. Brief History of Present Illness: Fredis Manriquez is a 78-year-old male with past medical history of dementia, hypertension, hyperlipidemia, diabetes mellitus IDDM, stage III kidney disease, and frequent falls and past surgical history of left shoulder who presents to the ED with complaints of frequent falls and most recently falling out of bed, also falling down the stairs. Right femur x-ray reports mildly impacted fracture of the proximal right femur. Dr. Muñiz was consulted and will operate in the morning. Initial vitals 7 BP 178 / 92; Pulse 60; Resp 16; Temp 98; Pulse Ox 97% on R/A; Laboratory evaluations are significant for H&H 11/34, neutrophils 78.9, BUN/creatinine 57/2.4, GFR 27, his serum glucose 172, magnesium 2.5, alk phos 123, PT/INR 13.1/1.20, APTT 31.6 UA positive for +1 blood, leukocyte esterase 75, RBC 5-10, white blood cells 20-30 Right femur x-ray reports mildly impacted fracture of the proximal right femur is present. The bones are diffusely demineralized. No dislocation. 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 CT head C-spine Without contrast reports no intracranial hemorrhage, hydrocephalus or extra-axial fluid collection. Moderate generalized brain atrophy is present with moderate periventricular and deep white matter chronic microvascular ischemic changes. No areas of brain edema or midline shift. The paranasal sinuses and mastoids are clear. The clavarium is intact. CT cervical spine without contrast reports no fracture or subluxation. Prominent degenerative changes seen throughout the cervical spine. There is 7 mm of degenerative anterior elbow likely cysts is present C7 on T1. Prevertebral soft tissues are normal in thickness. Moderate bilateral carotid arthrosclerosis CT CAP without contrast report mildly impacted fracture proximal right femur. Significant fecal retention in the rectosigmoid colon. bilateral pulmonary nodules are present nonspecific. Matthew will be admitted for further treatment of right femur fracture, Dr. Muñiz has been consulted Hospital Course: Problem list Acute right proximal impacted Femur Dementia with agitation Urinary tract infection POA Stage III kidney disease Diabetes mellitusIDDM History hypertension History HLD History of anxiety History of BPH [address] [facility] [place] [address] P:[phone]/ F:[phone] Patient was admitted to the hospital after sustaining a fall/right proximal impacted femur fracture. He also has a known history of dementia, stage III kidney disease, diabetes mellitus type 2, hypertension, hyperlipidemia, BPH. He underwent closed reduction with percutaneous screw fixation of the right femoral neck on 04/29. His renal function remained stable during hospitalization, he was found to have a urinary tract infection urine culture showed Enterococcus faecalis sensitive to penicillin, he was treated with IV Zosyn which he has had 2 days of, I discharged he will be prescribed Augmentin 500 mg twice daily for 5 days. Patient had been having falls at home, also per reported he would try to pack a suitcase and leave the house on occasion, he was ambulatory prior to hospitalization. He worked on transfers with physical therapy during hospitalization. Given his level participation he is not a candidate for inpatient rehab, he was approved for SNF today to go to [facility]. Continue medications as prescribed New medication: Augmentin 500 mg by mouth twice daily for 5 days Vital Signs/Physical Exam: Temp Pulse Resp BP Pulse Ox 98.0 F 56 18 155/79 H 99 05/03/23 11:57 05/03/23 11:57 05/03/23 11:57 05/03/23 11:57 05/03/23 11:57 General: Alert, In no apparent distress, Oriented x1 HEENT: Atraumatic, PERRLA Neck: Supple, JVD not distended Respiratory: Clear to auscultation bilaterally, Normal air movement Cardiovascular: Regular rate/rhythm, Normal S1 S2 Gastrointestinal: Normal bowel sounds Musculoskeletal: No tenderness Integumentary: No rashes Neurological: Normal speech, Normal tone, Normal affect Laboratory Data at Discharge: WBC 6.50 thou/uL (4.3-10.9) 05/03/23 04:04 Hgb 10.8 g/dL (13.6-17.9) L 05/03/23 04:04 Hct 30.3 % (39.6-49.0) L 05/03/23 04:04 Plt Count 177 thou/uL (152-406) 05/03/23 04:04 PT 13.1 SECONDS (9.5-12.5) H 04/28/23 09:10 INR 1.20 04/28/23 09:10 APTT 31.6 SECONDS (24.3-36.9) 04/28/23 09:10 Sodium 139 mEq/L (136-145) 05/03/23 04:04 Potassium 3.8 mEq/L (3.5-5.1) 05/03/23 04:04 BUN 35 mg/dL (7-18) H 05/03/23 04:04 Creatinine 1.89 mg/dL (0.70-1.30) H 05/03/23 04:04 Glucose 123 mg/dL (74-106) H 05/03/23 04:04 Phosphorus 2.8 mg/dL (2.5-4.9) 05/03/23 04:04 Magnesium 2.0 mg/dL (1.6-2.4) 05/03/23 04:04 Total Bilirubin 0.8 mg/dL (0.2-1.0) 04/28/23 09:10 AST 17 U/L (15-37) 04/28/23 09:10 ALT 21 U/L (16-61) 04/28/23 09:10 Alkaline Phosphatase 123 U/L (45-117) H 04/28/23 09:10 Home Medications: Amlodipine Besylate 5 mg PO BID 05/13/22 Atorvastatin Calcium [Lipitor*] 40 mg PO BEDTIME 05/13/22 Montelukast [Singulair*] 10 mg PO DAILY 05/13/22 Multivitamin [One-Daily Multi-Vitamin] 1 each PO DAILY 05/13/22 Tamsulosin HCl 0.4 mg PO BEDTIME 05/13/22 Turmeric 400 mg PO DAILY 05/13/22 Venlafaxine HCl [Effexor XR] 150 mg PO DAILY 05/13/22 carvediloL [Carvedilol] 12.5 mg PO BID 05/13/22 Indapamide 1.25 mg PO DAILY 04/28/23 Insulin Glargine,Hum.rec.anlog [Toujeo Solostar] 14 units SQ DAILY 04/28/23 Quetiapine [Seroquel*] 25 mg PO BID 04/28/23 Ramipril 2.5 mg PO BEDTIME 04/28/23 Trazodone [Desyrel*] 25 mg PO BEDTIME PRN 04/28/23 clonazePAM [Clonazepam] 0.5 mg PO BID 04/28/23 Amox/Clavulanate [Augmentin 500-125 mg Tab] 500 mg PO BID 5 Days #10 tab 05/03/23 New Medications: Amox/Clavulanate [Augmentin 500-125 mg Tab] 500 mg PO BID 5 Days #10 tab Physician Discharge Instructions: [facility] [address] [place] [address] P:[phone]/ F:[phone] Patient was admitted to the hospital after sustaining a fall/right proximal impacted femur fracture. He also has a known history of dementia, stage III kidney disease, diabetes mellitus type 2, hypertension, hyperlipidemia, BPH. He underwent closed reduction with percutaneous screw fixation of the right femoral neck on 04/29. His renal function remained stable during hospitalization, he was found to have a urinary tract infection urine culture showed Enterococcus faecalis sensitive to penicillin, he was treated with IV Zosyn which he has had 2 days of, I discharged he will be prescribed Augmentin 500 mg twice daily for 5 days. Patient had been having falls at home, also per reported he would try to pack a suitcase and leave the house on occasion, he was ambulatory prior to hospitalization. He worked on transfers with physical therapy during hospitalization. Given his level participation he is not a candidate for inpatient rehab, he was approved for SNF today to go to [facility]. Continue medications as prescribed New medication: Augmentin 500 mg by mouth twice daily for 5 days Diet: ADA Activity: Fall precautions Followup: Scotty Cook DO [ACTIVE - CAN ADMIT] - 1-2 Weeks Sean Zavala DO [Primary Care Provider] - 1-2 Weeks Neal Muñiz MD [ACTIVE - CAN ADMIT] - Time spent managing pt's care (in minutes): 30
--- NOTE | 2023-05-03 21:43 | P.PN ---
Date of Service: 05/03/23 Vital Signs Temp Pulse Resp BP Pulse Ox 98.0 F 56 18 155/79 H 99 05/03/23 11:57 05/03/23 11:57 05/03/23 11:57 05/03/23 11:57 05/03/23 11:57 Microbiology Results 04/28/23 09:25 Clean Catch Urine Borup Count - Final >100,000 CFU/ML. 04/28/23 09:25 Clean Catch Urine - Final Enterococcus Faecalis Assessment/ Plan: Nephrology No dyspnea No chest pain No acute events overnight Limited IH/ ROS due to dementia/ confusion Vitals, medications, blood work and imaging reviewed in the chart General: In no apparent distress HEENT: Atraumatic Neck: Supple Respiratory: Clear to auscultation bilaterally Cardiovascular: No edema, Regular rate/rhythm Gastrointestinal: Non-distended, No guarding Musculoskeletal: No clubbing, No contractures Integumentary: No rashes, No cyanosis Blood work reviewed in the chart Imagings Data: EXAM DESCRIPTION: RAD - Femur Right - 04/28/2023 9:55 am CLINICAL HISTORY: PAIN COMPARISON: No comparisons FINDINGS: Mildly impacted fracture of the proximal right femur is present. The bones are diffusely demineralized. No dislocation. 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 Conclusions/Impression: Stage I ANTONI in the setting of hypovolemia CKD III -No NSAIDs -Continue IVF Hypokalemia -Replete prn HTN with CKD -Continue Amlodipine -Continue Coreg -Continue Ramipril DM II with CKD -RISS Anemia in chronic illness -Monitor H&H BPH with LUTS -Continue tamsulosin Hospitalist notes reviewed Case reviewed with the hospitalist team
--- NOTE | 2023-05-04 15:31 | EKG ---
Test Date: 2023-05-02 Test Time: 05:51:58 Pattern Grader Supervisor: JOSH MEASUREMENT RESULTS: Intervals: Rate: 77 PA: 170 QRSD: 110 QT: 422 QTc: 477 [place]: P: PA: 170 QRS: 14 T: 20 INTERPRETIVE STATEMENTS: Sinus rhythm with premature atrial complexes Nonspecific T wave abnormality Prolonged QT Abnormal ECG Compared to ECG 04/28/2023 10:16:52 Atrial premature complex(es) now present T-wave abnormality now present Prolonged QT interval now present Junctional rhythm no longer present Left ventricular hypertrophy no longer present ST (T wave) deviation no longer present Electronically Signed On 05-04-23 15:26:01 BARK FITTER by Ar Boss
== END 2023-05-03 12:54 | DRG 481 ==
LOC: ER 08:35 → ERHOLD 12:53 → 2ND 13:37
PROVIDERS: ADMIT Internal Medicine; ATTEND Hospitalist
PROC: 0QS634Z Reposition Right Upper Femur with Internal Fixation Device, Percutaneous Approach (ICD-10-PCS; principal; 2023-04-29 08:00)
DX: S72.001A Fracture of unspecified part of neck of right femur, initial encounter for closed fracture (principal); F03.911 Unspecified dementia, unspecified severity, with agitation; N39.0 Urinary tract infection, site not specified; F03.94 Unspecified dementia, unspecified severity, with anxiety; E87.6 Hypokalemia; E78.00 Pure hypercholesterolemia, unspecified; I12.9 Hypertensive chronic kidney disease with stage 1 through stage 4 chronic kidney disease, or unspecified chronic kidney disease; N18.30 Chronic kidney disease, stage 3 unspecified; E11.22 Type 2 diabetes mellitus with diabetic chronic kidney disease; D63.1 Anemia in chronic kidney disease; N40.1 Benign prostatic hyperplasia with lower urinary tract symptoms; B95.2 Enterococcus as the cause of diseases classified elsewhere; R29.6 Repeated falls; Z79.4 Long term (current) use of insulin; Z91.81 History of falling; Z79.02 Long term (current) use of antithrombotics/antiplatelets; Z79.899 Other long term (current) drug therapy; W18.30XA Fall on same level, unspecified, initial encounter; Y92.009 Unspecified place in unspecified non-institutional (private) residence as the place of occurrence of the external cause; Y93.9 Activity, unspecified
CPT/HCPCS: 36415; 51702; 70450; 71250; 72125; 80048; 80076; 81001; 82947; 83735; 84100; 84484; 85025; 85610; 85730; 87077; 87086; 87088; 87186; 93005; 94010; 96360; 96361; 97161; 97530; 99285; A4216; J0690; J0696; J1630; J1650; J1815; J2001; J2175; J2250; J2270; J2371; J2405; J2543; J2704; J3010; J3486; J7030; J7040; J7120

== ENCOUNTER 2023-06-13 19:09 | Emergency (ER) | payer OTHER ==
[2023-06-13] MEDS ORDERED: CEFTRIAXONE 1000 MG/VIAL ONE (19:47)
[2023-06-13] MEDS ORDERED: VANCOMYCIN 1 GM/VIAL ONE (19:47)
[2023-06-13] MEDS ORDERED: ACETAMINOPHEN 650MG/RECT SUPP PR ONE (19:47)
[2023-06-13] MEDS ORDERED: NA CHLORIDE 0.9% 1,000 ML ONE (19:48)
[2023-06-13] MEDS ORDERED: NA CHLORIDE 0.9% 50 ML ONE (19:48)
[2023-06-13] MEDS ORDERED: NA CHLORIDE 0.9% 250 ML ONE (19:48)
[2023-06-13 20:04] LABS: Absolute Lymphocytes (CBC) 0.3 K/uL (0.7-4.9); Absolute Monocytes 0.6 K/uL (0.1-1.3); Absolute Neutrophil 21.3 K/uL (1.8-8.0); Hematocrit 31.2 % (39.6-49.0); Hemoglobin 10.5 g/dL (13.6-17.9); Lymphocytes % 1.4 % (15.3-44.8); MCH 29.8 pg (27.0-35.0); MCHC 33.8 g/dL (32.0-36.0); MCV 88.3 fL (80-100); MPV 8.2 fL (7.6-11.3); Monocytes % 2.5 % (3.3-12.3); Neutrophils % 96.1 % (41.7-73.7); Platelets 161 thou/uL (152-406); RBC Red Blood Cell Count 3.53 M/uL (4.33-5.43); Red Cell Distribution Width 14.4 % (12.1-15.2)
[2023-06-13 20:06] LABS: PTT, Activated Partial Thromb 33.3 SECONDS (24.3-36.9); Protime INR 1.47
[2023-06-13 20:17] LABS: Albumin 2.9 g/dL (3.4-5.0); Albumin/Globulin Ratio 0.8 (1.1-1.8); Anion Gap 13.6 mEq/L (5.0-15.0); Bilirubin Total 0.5 mg/dL (0.2-1.0); Globulin 3.7 g/dL (2.3-3.5); Potassium 3.6 mEq/L (3.5-5.1); Protein, Total 6.6 g/dL (6.4-8.2)
[2023-06-13 20:30] LABS: BETA HYDROXYBUTYRATE 0.08 mmol/L (0.02-0.27)
--- NOTE | 2023-06-13 20:32 | RAD REPORT ---
EXAM DESCRIPTION: RAD - Chest Single View - 06/13/2023 8:24 pm CLINICAL HISTORY: FEVER Chest pain. COMPARISON: <Comparisons> FINDINGS: Portable technique limits examination quality. Moderate atelectasis in left lung base with elevated left hemidiaphragm noted. The right lung is jose de jesus sly clear. The heart is moderately enlarged in size. Tortuous thoracic aorta is seen. IMPRESSION: Moderate atelectasis left base.
[2023-06-13 20:33] LABS: Troponin High Sensitivity 1062.3 pg/mL (<58.9)
[2023-06-13 20:36] LABS: Specific Gravity 1.023 (1.005-1.030); Sqamous Epithelial <5 /HPF (None Seen); Urine Bacteria None Seen /HPF (<20); Urine Bilirubin NEGATIVE (Negative); Urine Blood 1+ (Negative); Urine Clarity Extremely Turbid (Clear); Urine Color Yellow (Yellow); Urine Crystals Unidentified Few /HPF (None Seen); Urine Culture Reflex Order REFLEXED; Urine Glucose TRACE (Negative); Urine Ketones NEGATIVE (Negative); Urine Microscopic Reflex YN ORDER UMIC; Urine Mucus Slight /HPF (None Seen); Urine Nitrite NEGATIVE (Negative); Urine Protein 1+ (Negative); Urine RBC <5 /HPF (None Seen); Urine Urobilinogen Normal (Normal); Urine Yeast (Budding) Occasional /HPF (None Seen)
--- NOTE | 2023-06-13 20:40 | RAD REPORT ---
EXAM DESCRIPTION: US - Scrotum Testicles - 06/13/2023 8:29 pm CLINICAL HISTORY: scrotal swelling Pain and swelling COMPARISON: <Comparisons> FINDINGS: The right testicle 3.8 x 2.7 x 2.4 cm.. No intratesticular masses or evidence of testicula r torsion. The left testicle 3.8 x 2.4 x 1.9 cm.. No intratesticular masses or evidence of testicular torsion. Both epididymides are normal in size and appearance. Significant scrotal wall edema and thickening is present. IMPRESSION: Advanced scrotal wall thickening and edema. No testicular torsion or evidence of testicular mass.
[2023-06-13 20:54] LABS: Arterial Blood Carboxyhemoglob 1.3 % (0-1.5); Blood Gas Oxyhemoglobin 91.9 % (94-97); Blood Gas THB 10.5 g/dl (12-18); Blood O2 Saturation 94.4 % (92-98.5)
--- NOTE | 2023-06-13 20:56 | RAD REPORT ---
EXAM DESCRIPTION: CT - Head C Spine Cap Wo Con - 06/13/2023 8:48 pm CLINICAL HISTORY: Trauma, head and neck injury. Chest, abdomen and pelvis pain. AMS COMPARISON: <Comparisons> TECHNIQUE: CT head without contrast. CT cervical spine without contrast with coronal and sagittal reformatted images. CT chest, abdomen and pelvis without contrast with coronal and sagittal reformatted images of the spi ne. All CT scans are performed using dose optimization technique as appropriate and may include automated exposure control or mA/KV adjustment according to patient size. FINDINGS: CT HEAD WITHOUT CONTRAST: No intracranial hemorrhage, hydrocephalus or extra-axial fluid collection. Advanced generalized brain atrophy is present with advanced periventricular and deep white matter chronic microvascular ischemi c changes. No areas of brain edema or midline shift. The paranasal sinuses and mastoids are clear. The calvarium is intact. CT CERVICAL SPINE WITHOUT CONTRAST: No fracture or subluxation. Advanced multilevel cervical degenerative changes. 5 mm degenerative ante rolisthesis of C7 on T1. The prevertebral soft tissues are normal in thickness. CT CHEST, ABDOMEN, PELVIS WITHOUT CONTRAST: NOTE: Lack of contrast is a significant limitation in the assessment of trauma related findings. Spec ifically, solid organ, vascular and bowel evaluation is significantly limited. Elevation left hemidiaphragm with moderate atelectasis in the left lung base.No pneumothorax or peric ardial/pleural fluid. Aortic atherosclerosis. No evidence of intra-abdominal visceral injury, free fluid or free air is seen within the above detai led limitations. Left inguinal hernia is present containing fat and a portion of the sigmoid colon. M oderate stool is retained throughout the colon Urinary catheter is in place. Significant scrotal swelling. No fractures. Hardware proximal right femur. IMPRESSION: Negative for acute traumatic findings within the above detailed limitations. Significant scrotal swelling and edema.
[2023-06-13 21:09] LABS: INFLUENZA A NAA NEGATIVE (NEGATIVE); RESPIRATORY SYNCYTIAL VIR NAA NEGATIVE (NEGATIVE); SARS-COV-2 RT PCR NEGATIVE (NEGATIVE)
[2023-06-13] MEDS ORDERED: ACETAMINOPHEN 325 MG/SUPP PR ONE (21:17)
[2023-06-13 21:27] LABS: Band Neutrophils 12 % (0-1); Blood Morphology Comment NOT SEEN (NOT SEEN); Differential Total Cells Count 100; Lymphocytes 2 % (15-42); Monocytes 2 % (0-10); Platelet Estimate ADEQ; Segmented Neutrophils 84 % (40-80)
[2023-06-13] MEDS ORDERED: LIDOCAINE 1% 20 ML MDV ONE (22:43)
--- NOTE | 2023-06-13 23:35 | ER ---
Nurse's Notes [facility] Name: Matthew Avila Age: 78 yrs Sex: Male : 1945 Arrival Date: 06/13/2023 Time: 19:09 Bed 2 Private MD: Diagnosis: Cellulitis of groin;Severe sepsis without septic shock;Elevated troponin, hyperglycemia secondary to diabetes, severe sepsis, acute scrotal cellulitis Presentation: 06/12 19:18 Chief complaint: EMS states: [facility] having swelling to vc1 scrotum and altered mental status onset yesterday. Coronavirus screen: Client denies travel out of the [place] in the last 14 days. At this time, the client does not indicate any symptoms associated with coronavirus-19. Ebola Screen: Patient denies travel to an Ebola-affected area in the 21 days before illness onset. No symptoms or risks identified at this time. 19:18 Method Of Arrival: EMS: [facility] vc1 19:18 Initial Sepsis Screen: Does the patient meet any 2 criteria? RR > 20 per min. Temp vc1 <36.0*C (96.8*F)) or > 38.3*C (100.9*F). Altered Mental Status. HR > 90 bpm. Does the patient have a suspected source of infection? No. Patient's initial sepsis screen is negative. Risk Assessment: Do you want to hurt yourself or someone else? Patient reports no desire to harm self or others. Onset of symptoms was June 12, 2023. 19:18 Acuity: NELLY 2 vc1 Triage Assessment: 19:00 General: Appears distressed, uncomfortable, slender, unkempt, Behavior is vc1 uncooperative. Pain: Unable to use pain scale. Altered. EENT: No deficits noted. No signs and/or symptoms were reported regarding the EENT system. Neuro: Level of Consciousness is lethargic, listless, Oriented to person. Cardiovascular: Rhythm is sinus tachycardia. Respiratory: Airway is patent Respiratory effort is even, unlabored, Respiratory pattern is symmetrical, tachypnea Breath sounds are clear bilaterally. GI: Abdomen is flat, non-distended, Soiled brief on arrival Bowel sounds present X 4 quads. Abd is soft. : Urine is clear, christal urine. Derm: Rash noted that is red. Musculoskeletal: unable to assess gait, patient is stiff, doesn't move legs, will move arms. Historical: - Allergies: 19:49 No Known Allergies; vc1 - PMHx: 19:49 Dementia; Hypercholesterolemia; Type 2 Diabetes Mellitus; Hypertensive disorder; vc1 - PSHx: 19:49 Left shoulder sx; vc1 - Immunization history:: Adult Immunizations up to date. - Infectious Disease History:: Denies. - Social history:: Smoking status: unknown. - Family history:: not pertinent. Screenin:00 [facility] ED Fall Risk Assessment (Adult) History of falling in the last 3 months, vc1 including since admission No falls in past 3 months (0 pts) Confusion or Disorientation Yes (5 pts) Intoxicated or Sedated Yes (3 pts) Impaired Gait Yes (1 pt) Mobility Assist Device Used No (0 pt) Altered Elimination No (0 pt) Score/Fall Risk Level 3 or more points = High Risk Oriented to surroundings, Maintained a safe environment, Educated pt \T\ family on fall prevention, incl call for assistance when getting out of bed, Provided non-skid footwear, Hourly rounding (assess needs \T\ fall precautionary measures) done, Used ambulatory aids as needed (educated on \T\ assisted with). Abuse screen: Denies threats or abuse. Nutritional screening: No deficits noted. Tuberculosis screening: No symptoms or risk factors identified. Assessment: 19:00 General: See triage assessment. Pain: Also complains of no other associated symptoms. vc1 Unable to use pain scale. Patient appears quiet. Neuro: Level of Consciousness is lethargic, listless. 20:00 Reassessment: No changes from previously documented assessment. Patient and/or family vc1 updated on plan of care and expected duration. Pain level reassessed. 21:00 Reassessment: Patient appears in no apparent distress at this time. No changes from vc1 previously documented assessment. Patient and/or family updated on plan of care and expected duration. Pain level reassessed. 23:00 Reassessment: Patient appears in no apparent distress at this time. No changes from vc1 previously documented assessment. Patient and/or family updated on plan of care and expected duration. Pain level reassessed. 23:51 Reassessment: Patient and/or family updated on plan of care and expected duration. Pain vc1 level reassessed. Patient states symptoms have improved. 06/13 01:06 General: Sobia Avila, pts , gives verbal consent for transfer, central line and vc1 beal. 02:45 General: Attempted to call report. Deyanira RN answered stated they had no patient on vc1 that floor with this name, asked if I would hold and the phone hung up.. 03:19 General: called back with room number to give report. . vc1 03:19 General: Nurse states that they have a urology floor she needs to speak to her charge vc1 nurse and stopped taking report. 05:00 Reassessment: No changes from previously documented assessment. Patient and/or family vc1 updated on plan of care and expected duration. Pain level reassessed. Neuro: Level of Consciousness is awake, Oriented to person. Vital Signs: 06/12 19:18 BP 148 / 81; Pulse 110; Resp 36; Temp 101.7(R); Pulse Ox 90% on R/A; vc1 19:58 Weight 72.71 kg; cm10 20:30 BP 150 / 89; Pulse 106; Resp 28; Temp 101.9(Ca); Pulse Ox 96% ; vc1 21:15 BP 129 / 74; Pulse 103; Resp 30; Temp 101.8; Pulse Ox 97% ; vc1 22:00 BP 126 / 70; Pulse 93; Resp 25; Pulse Ox 97% ; vc1 23:00 BP 129 / 77; Pulse 95; Resp 22; Pulse Ox 100% ; vc1 06/13 00:00 BP 122 / 75; Pulse 92; Resp 18; Temp 99.7; Pulse Ox 100% ; vc1 01:00 BP 118 / 69; Pulse 86; Resp 20; Pulse Ox 100% ; vc1 02:00 BP 135 / 82; Pulse 86; Resp 20; Pulse Ox 100% ; vc1 03:00 BP 143 / 86; Pulse 91; Resp 15; Temp 98.8(Ca); Pulse Ox 98% ; vc1 04:00 BP 146 / 81; Pulse 95; Resp 22; Temp 98.8(Ca); Pulse Ox 98% ; vc1 05:00 BP 142 / 99; Pulse 97; Resp 19; Temp 98.7(Ca); Pulse Ox 100% on R/A; vc1 Lianne Coma Score: 00:52 Eye Response: spontaneous(4). Motor Response: withdraws from pain(4). Verbal Response: sp4 none(1). Total: 9. ED Course: 06/12 19:00 Patient has correct armband on for positive identification. Bed in low position. Call vc1 light in reach. Side rails up X2. residential monitor on. Pulse ox on. NIBP on. 19:14 Patient arrived in ED. vc1 19:39 Initial lab(s) drawn, by me, sent to lab. First set of blood cultures drawn by me. vc1 Inserted saline lock: 22 gauge in right antecubital area, using aseptic technique. Blood collected. 19:39 Second set of blood cultures drawn by me. vc1 19:46 Maria Guadalupe Escamilla FNP-C is PHCP. kb 19:46 George Mauricio is Attending Physician. kb 19:49 Triage completed. vc1 19:49 Arm band placed on Patient placed in an exam room, on a stretcher, on residential monitor, vc1 on pulse oximetry. 20:00 Provided Education on: Procedure Consent. vc1 20:02 Wicho De La Garza MD is Attending Physician. sp4 20:15 Urine collected: Beal catheter specimen, christal colored, Amount Returned: 150mL EKG vc1 done, COVID swab sent to lab. Flu and/or RSV swab sent to lab. X-ray(s) taken. 20:16 COVID-19/FLU A+B/RSV Sent. vc1 20:16 Blood Culture Adult (2) Sent. vc1 20:17 Kristi Johnson, RN is Primary Nurse. vc1 20:26 Chest Single View XRAY In Process Unspecified. EDMS 20:31 US Scrotum Testicles In Process Unspecified. EDMS 20:36 Beal cath inserted, using sterile technique, 16 Fr., by me, balloon inflated, to vc1 gravity drainage, clamped. urine specimen collected. 20:40 Notified ED physician of a critical lab result(s). Lactate 3.2 and Troponin 1,062. jw7 20:49 CT Traumagram (Head C Spine CAP wo con) In Process Unspecified. EDMS 22:53 Assisted provider with central line placement. Set up central line tray. Triple lumen vc1 line placed in left internal jugular. Line placed by Wicho De La Garza MD Placement verified by Dressed with Tegaderm, Patient tolerated well. Before procedure, did Practitioner(s) obtain informed consent? Yes. Patient \T\ family education about procedure, CLABSI prevention and S/S of infection? Yes. Time-out/Briefing performed prior to start of procedure? Yes. Was handwashing/sanitizing done immediately prior to procedure? Yes. Was patient positioned to in a way to prevent air embolism? Yes. Was procedure site sterilized? Yes, with chlorhexidine. Was the site allowed to dry? Yes. Was local anesthetic and/or sedation utilized? Yes. During the procedure, did the Practitioner(s) maintain a sterile field? Yes. Were unused ports clamped during insertion? Yes. Was a 2nd qualified MD obtained after 3 unsuccessful insertion attempts? No. Was blood aspirated from each lumen? Yes. 23:23 Transfer initiated with Jennifer at transfer center at this time. cm10 06/13 00:18 Chest Single View XRAY In Process Unspecified. EDMS 01:37 Per Jennifer at transfer center, hospitalist did not accept patient due to patient needing cm10 to go to ICU. Jennifer reports that doc to doc with ICU doctor will need to be completed and she will call back when ICU provider is available. 03:06 [facility] Called for patient transport ALS unavailable for transport until 6 am. ty 03:06 [facility] called for patient transport, no availability for several hours. ty 03:17 [facility] ambulance called for transport, on hold for 9 minutes , ETA 1-1.5 hours. ty 03:51 called for room assignment change from [id number] to 1122. ty 05:09 Patient transferred, IV remains in place. vc1 Administered Medications: 06/12 20:16 Drug: Acetaminophen NV Suppository 650 mg NV once Route: NV; vc1 06/13 00:25 Follow up: Response: No adverse reaction; Marked relief of symptoms vc1 06/12 20:16 Drug: NS 0.9% IV (30 ml/kg) 1000 ml IV at bolus once; Sepsis Protocol Route: IV; Rate: vc1 bolus; Site: left antecubital; 21:16 Follow up: IV Status: Completed infusion; IV Intake: 1000ml vc1 20:20 Drug: Rocephin - Rocephin (cefTRIAXone) IVPB 1 grams IVPB once over 30 mins; (mix in 50 vc1 mL NS) Route: IVPB; Infused Over: 30 mins; Site: left antecubital; 06/13 00:26 Follow up: IV Status: Completed infusion; IV Intake: 100ml vc1 06/12 20:25 Drug: vancoMYCIN IVPB 1 grams IVPB once over 2 hrs Route: IVPB; Infused Over: 2 hrs; vc1 Site: right antecubital; 22:50 Follow up: IV Status: Completed infusion; IV Intake: 250ml vc1 22:53 Drug: Lidocaine Infiltration (1 %) 20 ml 20 ml Infiltration once; to bedside Volume: 20 vc1 ml; Route: Infiltration; 06/13 00:25 Drug: NS 0.9% IV 1000 ml IV at 125 ml/hr continuous Route: IV; Rate: 125 ml/hr; Site: [facility] left jugular; 05:10 Follow up: IV Status: Infusion continued upon transfer vc1 02:26 Drug: Piperacillin-Tazobactam IVPB 3.375 grams IVPB once over 60 mins; (mix in NS 100 jw7 mL) Route: IVPB; Infused Over: 60 mins; Site: left jugular; 03:35 Follow up: IV Status: Completed infusion; IV Intake: 100ml vc1 05:09 Drug: Norepinephrine IV 0.1 mcg/kg/min IV at calculated rate See Administration vc1 Instructions; (Standard concentration 4 mg / 250 mL D5W); Recommended max rate 3 mcg/kg/min; Titrate 0.05 mcg/kg/min as often as every 5 minutes to achieve goal (see titration policy); Goal parameter MAP greater than 65 mmHg. {Note: Levophed sent with EMS for transfer per MD..} Route: IV; Rate: calculated rate; Site: Other; 05:10 Follow up: IV Status: Infusion continued upon transfer vc1 Medication: 00:02 VIS not applicable for this client. vc1 Intake: 06/12 21:16 IV: 1000ml; Total: 1000ml. vc1 22:50 IV: 250ml; Total: 1250ml. vc1 06/13 00:26 IV: 100ml; Total: 1350ml. vc1 03:35 IV: 100ml; Total: 1450ml. vc1 Outcome: 06/12 23:35 ER care complete, transfer ordered by MD. carreno 04/10 05:08 Transferred by ground EMS to [facility], Transfer form completed. vc1 X-rays sent w/ patient. Condition: improved Instructed on the need for transfer, 05:11 Patient left the ED. vc1 Signatures: Dispatcher [employer] EDMaria Guadalupe Caruso, STU REARDON-Kristi Sow RN RN vc1 Nikki Álvarez RN RN jw7 Wicho De La Garza MD MD sp4 Marily Hale RN RN cm10 [place] Corrections: (The following items were deleted from the chart) 06/12 20:27 20:27 82.1 kg; Height 6 ft. 0 in.; BMI: 24.5; vc1 vc1 21:28 21:28 Rocephin - Rocephin (cefTRIAXone) IVPB 1 grams IVPB in left antecubital over 30 vc1 mins vc1 21:28 21:28 vancoMYCIN IVPB 1 grams IVPB in right antecubital over 2 hrs vc1 vc1 06/13 03:38 02:45 General: called back with room number to give report. . vc1 vc1 05:08 04 20:30 BP 150 / 89; Pulse 106bpm; Resp 28bpm; Pulse Ox 96%; Temp 101.9F; vc1 vc1
--- NOTE | 2023-06-13 23:35 | EDPHYS ---
Physician Documentation [facility] Name: Matthew Avila Age: 78 yrs Sex: Male : 1945 Arrival Date: 06/13/2023 Time: 19:09 Bed 2 Private MD: ED Physician Wicho De La Garza HPI: 06/12 20:02 This 78 yrs old Male presents to ER via EMS with complaints of Fever, Altered sp4 Mental Status. 23:18 78-year-old male with past medical history of dementia, hypertension, hyperlipidemia, sp4 diabetes mellitus, stage III kidney disease, frequent falls, history of left shoulder repair, presents to the emergency room with fever, delirium, and scrotal swelling. Patient's recent admission 04/28/2023 was for impacted fracture of the proximal right femur. Additional admission diagnoses include acute right proximal femur fracture, dementia with agitation, urinary tract infection, stage III kidney disease, diabetes mellitus, hypertension, hyperlipidemia, anxiety, BPH. Patient's medications include amlodipine, atorvastatin, montelukast, multivitamin, tamsulosin, tumeric, venlafaxine, carvedilol, indapamide, insulin glargine, quetiapine, ramipril, trazodone, clonazepam, amoxicillin clavulanic acid.. . Patient was brought today from [facility] for altered mental status, fever, and scrotal swelling patient is full code. PMD Dr. Gurrola. FDC medications include acetaminophen, amlodipine 5 mg twice a day, atorvastatin 40 mg daily, buspirone 5 mg 3 times a day, ceftriaxone 1 g intramuscular daily, ceftriaxone 1 g intramuscular administered 06/13/2023. Clonazepam 0.5 mg twice a day. Hydroxyzine 50 mg every 4 hours as needed, indapamide 1.25 mg daily for prostatic hypertrophy, insulin glargine sQ sliding scale , multivitamin daily, montelukast 10 mg daily, ramipril 10 mg twice a day, tamsulosin 0.4 mg bedtime tramadol 50 mg every 6 hours as needed pain, trazodone 100 mg at bedside. . Historical: - Allergies: 19:49 No Known Allergies; vc1 - PMHx: 19:49 Dementia; Hypercholesterolemia; Type 2 Diabetes Mellitus; Hypertensive disorder; vc1 - PSHx: 19:49 Left shoulder sx; vc1 - Immunization history:: Adult Immunizations up to date. - Infectious Disease History:: Denies. - Social history:: Smoking status: unknown. - Family history:: not pertinent. ROS: 23:18 Constitutional: ROS not available secondary to dementia and lethargy sp4 23:18 All other systems are negative, 23:18 Unable to obtain ROS due to altered mental status, Exam: 23:18 Constitutional: Elderly male, heavily debilitated, signs of physical deconditioning, sp4 signs of hypoactive delirium, becomes agitated with physical examination, febrile and tachycardic. Toxic appearing, nonhypertensive Head/Face: Normocephalic, atraumatic. Eyes: Pupils equal round and reactive to light, extra-ocular motions intact. Lids and lashes normal. Conjunctiva and sclera are not injected. Cornea within normal limits. ENT: Nares patent. No nasal discharge, no septal abnormalities noted. Tympanic membranes are normal and external auditory canals are clear. Oropharynx with no redness, swelling, or masses, exudates, or evidence of obstruction, uvula midline. Mucous membranes moist. Neck: Trachea midline, no thyromegaly or masses palpated, and no cervical lymphadenopathy. Supple, full range of motion without nuchal rigidity, or vertebral point tenderness. Chest/axilla: Normal chest wall appearance and motion. Nontender with no deformity. No lesions are appreciated. Cardiovascular: Regular tachycardia, no gallops, murmurs, or rubs. Normal PMI, no JVD. No pulse deficits. Respiratory: Lungs have equal breath sounds bilaterally, clear to auscultation and percussion. No rales, rhonchi or wheezes noted. No increased work of breathing, no retractions or nasal flaring. Abdomen/GI: Soft, with normal bowel sounds. No distension or tympany. No guarding or rebound. No evidence of tenderness throughout. Back: No spinal tenderness. No costovertebral tenderness. Male : There is incontinence of urine, there is scrotal enlargement signs of redness and irritation with scrotal skin cellulitis. No sign of drainable abscess Skin: Warm, dry with normal turgor. Normal color with no rashes, no lesions, and no evidence of cellulitis. MS/ Extremity: Pulses equal, no cyanosis. Patient moves all extremities, signs of prolonged immobility, physical deconditioning, muscle wasting secondary to prolonged immobility. Neuro: Signs of advanced dementia, signs of delirium, comes agitated with physical exam, nonverbal at this time. Patient is moving all extremities 23:29 Head/Face: Normocephalic, atraumatic. sp4 23:29 ECG was reviewed by the Attending Physician. EKG time 2009, ventricular rate 102, sinus tachycardia at 102, no ST elevation or depression. Vital Signs: 19:18 BP 148 / 81; Pulse 110; Resp 36; Temp 101.7(R); Pulse Ox 90% on R/A; vc1 19:58 Weight 72.71 kg; cm10 20:30 BP 150 / 89; Pulse 106; Resp 28; Temp 101.9(Ca); Pulse Ox 96% ; vc1 21:15 BP 129 / 74; Pulse 103; Resp 30; Temp 101.8; Pulse Ox 97% ; vc1 22:00 BP 126 / 70; Pulse 93; Resp 25; Pulse Ox 97% ; vc1 23:00 BP 129 / 77; Pulse 95; Resp 22; Pulse Ox 100% ; vc1 04/10 00:00 BP 122 / 75; Pulse 92; Resp 18; Temp 99.7; Pulse Ox 100% ; vc1 01:00 BP 118 / 69; Pulse 86; Resp 20; Pulse Ox 100% ; vc1 02:00 BP 135 / 82; Pulse 86; Resp 20; Pulse Ox 100% ; vc1 03:00 BP 143 / 86; Pulse 91; Resp 15; Temp 98.8(Ca); Pulse Ox 98% ; vc1 04:00 BP 146 / 81; Pulse 95; Resp 22; Temp 98.8(Ca); Pulse Ox 98% ; vc1 05:00 BP 142 / 99; Pulse 97; Resp 19; Temp 98.7(Ca); Pulse Ox 100% on R/A; vc1 [place] Coma Score: 00:52 Eye Response: spontaneous(4). Motor Response: withdraws from pain(4). Verbal Response: sp4 none(1). Total: 9. Procedures: 06/12 23:11 Central Line: the site was prepped with in sterile fashion, Chlorhexidine, a triple sp4 lumen catheter was inserted, in the left internal jugular vein, in 1 attempts. placement was verified, by CXR, by blood return, Ultrasound guided central venous catheter, the site was dressed with 4X4s, Tegaderm, using sterile technique, the patient tolerated the procedure, well, Central line placed for severe sepsis. MDM: 19:46 Patient medically screened. kb 23:15 ED course: CT CERVICAL SPINE WITHOUT CONTRAST: No fracture or subluxation. Advanced sp4 multilevel cervical degenerative changes. 5 mm degenerative anterolisthesis of C7 on T1. The prevertebral soft tissues are normal in thickness. . ED course: FINDINGS: CT HEAD WITHOUT CONTRAST: No intracranial hemorrhage, hydrocephalus or extra-axial fluid collection. Advanced generalized brain atrophy is present with advanced periventricular and deep white matter chronic microvascular ischemic changes. No areas of brain edema or midline shift. The paranasal sinuses and mastoids are clear. The calvarium is intact.. ED course: CT CHEST, ABDOMEN, PELVIS WITHOUT CONTRAST: NOTE: Lack of contrast is a significant limitation in the assessment of trauma related findings. Specifically, solid organ, vascular and bowel evaluation is significantly limited. Elevation left hemidiaphragm with moderate atelectasis in the left lung base.No pneumothorax or pericardial/pleural fluid. Aortic atherosclerosis. No evidence of intra-abdominal visceral injury, free fluid or free air is seen within the above detailed limitations. Left inguinal hernia is present containing fat and a portion of the sigmoid colon. Moderate stool is retained throughout the colon Urinary catheter is in place. Significant scrotal swelling. No fractures. Hardware proximal right femur. IMPRESSION: Negative for acute traumatic findings within the above detailed limitations. Significant scrotal swelling and edema.. 23:18 ED course: EXAM DESCRIPTION: US - Scrotum Testicles - 06/13/2023 8:29 pm CLINICAL sp4 HISTORY: scrotal swelling Pain and swelling COMPARISON: FINDINGS: The right testicle 3.8 x 2.7 x 2.4 cm.. No intratesticular masses or evidence of testicular torsion. The left testicle 3.8 x 2.4 x 1.9 cm.. No intratesticular masses or evidence of testicular torsion. Both epididymides are normal in size and appearance. Significant scrotal wall edema and thickening is present. IMPRESSION: Advanced scrotal wall thickening and edema. No testicular torsion or evidence of testicular mass. . 23:35 Differential diagnosis: viral Infection, bacterial infection, URI, bronchitis, sp4 pneumonia UTI, gastroenteritis, meningitis. Data reviewed: vital signs, nurses notes, EMS record, old medical records, lab test result(s), EKG, radiologic studies, doppler, plain films, ultrasound. Consideration of Admission/Observation Escalation of care including admission/observation considered. Management of patient was discussed with the following: Network Programmer: Urologist. ED course: Severe sepsis and scrotal cellulitis without septic shock. Patient has elevated troponin. Lactic acid 3.2, central line was placed secondary to debilitated condition and severe sepsis. Patient warrants transfer for urology consult possibly scrotal debridement. . 23:50 ED course: EXAM DESCRIPTION: RAD - Chest Single View - 06/13/2023 8:24 pm CLINICAL sp4 HISTORY: FEVER Chest pain. COMPARISON: FINDINGS: Portable technique limits examination quality. Moderate atelectasis in left lung base with elevated left hemidiaphragm noted. The right lung is grossly clear. The heart is moderately enlarged in size. Tortuous thoracic aorta is seen. IMPRESSION: Moderate atelectasis left base.. 06/13 00:09 ED course: Neurologist has accepted the patient for consult . sp4 06/12 19:27 Order name: Glucose, Ancillary Testing; Complete Time: 19:34 EDMS 06/12 19:35 Order name: Blood Culture Adult (2) ci 06/12 19:35 Order name: CBC with Diff; Complete Time: 22:32 ci 06/12 19:35 Order name: CMP; Complete Time: 22:32 ci 06/12 19:35 Order name: Lactate w/ 2H reflex if indic.; Complete Time: 22:32 ci 06/12 19:35 Order name: Protime (+inr); Complete Time: 22:32 ci 06/12 19:35 Order name: Ptt, Activated; Complete Time: 22:32 ci 06/12 19:35 Order name: Urinalysis w/ reflexes; Complete Time: 22:32 ci 06/12 19:37 Order name: Troponin High Sensitivity; Complete Time: 22:32 ci 06/12 19:37 Order name: PROBNP; Complete Time: 22:32 ci 06/12 19:37 Order name: ABG; Complete Time: 22:32 ci 06/12 19:37 Order name: BHB; Complete Time: 22:32 ci 06/12 19:39 Order name: COVID-19/FLU A+B/RSV; Complete Time: 22:32 ci 06/12 20:39 Order name: Urine Culture EDMS 06/12 21:28 Order name: Manual Differential; Complete Time: 22:32 EDMS 06/13 00:09 Order name: Lactate Sepsis 2 HR Follow-up; Complete Time: 00:12 EDMS 06/12 19:35 Order name: Chest Single View XRAY; Complete Time: 22:32 ci 06/12 20:07 Order name: US Scrotum Testicles; Complete Time: 22:32 sp4 06/12 20:08 Order name: CT Traumagram (Head C Spine CAP wo con); Complete Time: 22:32 sp4 06/12 23:12 Order name: Chest Single View XRAY sp4 06/12 19:35 Order name: Accucheck; Complete Time: 20:16 ci 06/12 19:35 Order name: Cardiac monitoring; Complete Time: 20:16 ci 06/12 19:35 Order name: EKG - Nurse/Tech; Complete Time: 20:16 ci 06/12 19:35 Order name: IV Saline Lock - Large Bore; Complete Time: 20:16 ci 06/12 19:35 Order name: Labs collected and sent; Complete Time: 20:16 ci 06/12 19:35 Order name: O2 Per Protocol; Complete Time: 20:16 ci 06/12 19:35 Order name: O2 Sat Monitoring; Complete Time: 20:16 ci 06/12 19:35 Order name: Vital Signs; Complete Time: 20:16 ci 06/12 20:08 Order name: [place]; Complete Time: 20:16 sp4 06/12 22:35 Order name: Central Line Kit; Complete Time: 22:42 sp4 EC/09 23:29 Rate is 102 beats/min. Rhythm is regular, Sinus tachycardia. QRS [place] is Normal. [place] sp4 interval is normal. QRS interval is normal. QT interval is normal. No Q waves. T waves are Normal. No ST changes noted. Clinical impression: No evidence of ischemia. Interpreted by me. Reviewed by me. Administered Medications: 20:16 Drug: Acetaminophen AZ Suppository 650 mg AZ once Route: AZ; vc1 06/13 00:25 Follow up: Response: No adverse reaction; Marked relief of symptoms 1 06/12 20:16 Drug: NS 0.9% IV (30 ml/kg) 1000 ml IV at bolus once; Sepsis Protocol Route: IV; Rate: vc1 bolus; Site: left antecubital; 21:16 Follow up: IV Status: Completed infusion; IV Intake: 1000ml vc1 20:20 Drug: Rocephin - Rocephin (cefTRIAXone) IVPB 1 grams IVPB once over 30 mins; (mix in 50 vc1 mL NS) Route: IVPB; Infused Over: 30 mins; Site: left antecubital; 06/13 00:26 Follow up: IV Status: Completed infusion; IV Intake: 100ml vc1 06/12 20:25 Drug: vancoMYCIN IVPB 1 grams IVPB once over 2 hrs Route: IVPB; Infused Over: 2 hrs; vc1 Site: right antecubital; 22:50 Follow up: IV Status: Completed infusion; IV Intake: 250ml vc1 22:53 Drug: Lidocaine Infiltration (1 %) 20 ml 20 ml Infiltration once; to bedside Volume: 20 vc1 ml; Route: Infiltration; 06/13 00:25 Drug: NS 0.9% IV 1000 ml IV at 125 ml/hr continuous Route: IV; Rate: 125 ml/hr; Site: vc1 left jugular; 05:10 Follow up: IV Status: Infusion continued upon transfer vc1 02:26 Drug: Piperacillin-Tazobactam IVPB 3.375 grams IVPB once over 60 mins; (mix in NS 100 jw7 mL) Route: IVPB; Infused Over: 60 mins; Site: left jugular; 03:35 Follow up: IV Status: Completed infusion; IV Intake: 100ml vc1 05:09 Drug: Norepinephrine IV 0.1 mcg/kg/min IV at calculated rate See Administration vc1 Instructions; (Standard concentration 4 mg / 250 mL D5W); Recommended max rate 3 mcg/kg/min; Titrate 0.05 mcg/kg/min as often as every 5 minutes to achieve goal (see titration policy); Goal parameter MAP greater than 65 mmHg. {Note: Levophed sent with EMS for transfer per MD..} Route: IV; Rate: calculated rate; Site: Other; 05:10 Follow up: IV Status: Infusion continued upon transfer vc1 Disposition Summary: 06/13/23 23:35 Transfer Ordered Notes: Transfer Location: [facility] sp4 Reason: Higher level of care sp4 Condition: Stable sp4 Problem: new sp4 Symptoms: have improved sp4 Accepting Physician: Hospitalist(06/14/23 05:11) vc1 Diagnosis - Cellulitis of groin sp4 - Severe sepsis without septic shock sp4 - Elevated troponin, hyperglycemia secondary to diabetes, severe sepsis, acute sp4 scrotal cellulitis Forms: - Medication Reconciliation Form sp4 - SBAR form sp4 Critical care time excluding procedures: 06/12 23:34 Critical care time: Bedside Care: 36 minutes, Consultation: 12 minutes. Total time: 48 sp4 minutes Signatures: Dispatcher [employer] EDMS Maria Guadalupe Escamilla, GLUING MACHINE OFFBEARER-C GLUING MACHINE OFFBEARER-CkKristi Ortez RN RN vc1 Nikki Álvarez RN RN [id number] Wicho De La Garza MD MD sp4 George Mauricio Corrections: (The following items were deleted from the chart) 19:36 19:36 BLOOD CULTURE*+BA.LAB.BRZ ordered. EDMS EDMS 19:36 19:36 CBC+H.LAB.BRZ ordered. EDMS EDMS 19:36 19:36 COMPREHENSIVE METABOLIC PANEL+C.LAB.BRZ ordered. EDMS EDMS 19:36 19:36 LACTATE+C.LAB.BRZ ordered. EDMS EDMS 19:36 19:36 PROTIME (+INR)+COAG.LAB.BRZ ordered. EDMS EDMS 19:36 19:36 PTT, ACTIVATED+COAG.LAB.BRZ ordered. EDMS EDMS 19:36 19:36 Urinalysis+U.LAB.BRZ ordered. EDMS EDMS 19:36 19:36 Chest Single View+RAD.RAD.BRZ ordered. EDMS EDMS 19:36 19:36 Head Brain Wo Cont+CT.RAD.BRZ ordered. EDMS EDMS 19:38 19:38 Troponin High Sensitivity+C.LAB.BRZ ordered. EDMS EDMS 19:38 19:38 PROBNP+C.LAB.BRZ ordered. EDMS EDMS 19:38 19:38 BETA HYDROXYBUTYRATE+C.LAB.BRZ ordered. EDMS EDMS 23:14 20:07 SARS-COV-2 Antigen Rapid+I.LAB.BRZ ordered. EDMS EDMS 23:14 20:07 Influenza Screen (A \T\ B)+BA.LAB.BRZ ordered. EDMS EDMS 23:34 23:18 Constitutional: This is a well developed, well nourished patient who is awake, sp4 alert, and in no acute distress. sp4 06/13 05:11 06/12 23:35 Hospitalist sp4 vc1
[2023-06-14] MEDS ORDERED: NA CHLORIDE 0.9% 1,000 ML ONE (00:14)
[2023-06-14] MEDS ORDERED: PIPERACIL/TAZO 3.375 GM VIAL IV ONE (02:09)
[2023-06-14] MEDS ORDERED: NA CHLORIDE 0.9% 100 ML ONE (02:09)
[2023-06-14] MEDS ORDERED: NOREPINEPHRINE BITARTRATE/D5W 4 MG/250 ML BAG IV ONE (04:55)
[2023-06-14 06:10] VITALS: BP 142/99; TEMP 98.7; O2SAT 100
--- NOTE | 2023-06-14 12:34 | EKG ---
Test Date: 2023-06-13 Test Time: 20:10:05 Belt Cutter: MAHENDRA MEASUREMENT RESULTS: Intervals: Rate: 102 NM: 206 QRSD: 122 QT: 342 QTc: 445 [place]: P: 112 NM: 206 QRS: 5 T: 34 INTERPRETIVE STATEMENTS: Sinus tachycardia Nonspecific T wave abnormality Abnormal ECG Compared to ECG 05/02/2023 05:51:58 Sinus rhythm no longer present Atrial premature complex(es) no longer present Prolonged QT interval no longer present T-wave abnormality still present Electronically Signed On 06-14-23 12:32:40 CDT by Ar Boss
--- NOTE | 2023-06-14 13:31 | RAD REPORT ---
EXAM DESCRIPTION: Chest Single View 06/14/2023 1:50 AM CDT CLINICAL HISTORY: 59 years, Male, CVL placed right IJ COMPARISON: 05/21/2023 FINDINGS: 1 views of the chest was obtained. Prior films were compared. There is slight decreased lung volume. Mediastinum: The cardiomediastinal silhouette is enlarged. There is a right IJ triple-lumen catheter in place. No evidence for pneumothorax. Lungs: Minimal haziness throughout the known correspond to atelectasis and/or interstitial pulmonary edema. Heart: There is significant cardiomegaly. There is a multilead pacemaker in place. Thoracic aorta: The thoracic aorta demonstrate minimal intimal calcification. Pulmonary vasculature: The pulmonary vasculature is normal in distribution. Pleura: The costophrenic angles demonstrate to be sharp. Osseous structures: The bony structures demonstrate to be within normal limits. Other: External EKG leads within the [id number] limits diagnosis. IMPRESSION: Minimal haziness throughout the known atelectasis and/or interstitial pulmonary edema. Multilead pacemaker in place. Right IJ triple-lumen catheter in place. No evidence for pneumothorax. Electronically signed by: Sid Allen MD 06/14/2023 01:51 AM CDT Due to temporary technical issues with the PACS/Fluency reporting system, reports are being signed by the in house radiologists without review as a courtesy to insure prompt reporting. The interpreting radiologist is fully responsible for the content of the report.
== END 2023-06-14 05:11 | disposition short-term general hospital (02) ==
LOC: ER 19:09
PROC: 05HN33Z Insertion of Infusion Device into Left Internal Jugular Vein, Percutaneous Approach (ICD-10-PCS; principal; 2023-06-13)
DX: L03.314 Cellulitis of groin (principal); R65.20 Severe sepsis without septic shock; E11.65 Type 2 diabetes mellitus with hyperglycemia; R79.89 Other specified abnormal findings of blood chemistry; I10 Essential (primary) hypertension; F03.90 Unspecified dementia, unspecified severity, without behavioral disturbance, psychotic disturbance, mood disturbance, and anxiety; Z11.52 Encounter for screening for COVID-19
CPT/HCPCS: 87040 ×2; 87088; 85025; 81001; 87086; 36415; 85610; 82947; 83605 ×2; 85730; 84484; 80053; 82010; 83880; 0241U; 70450; 71250; 72125; 71045; 76870; 82805; 36600; 36556; J2001; J7050; J7030; J0696; 93005; J2543

== ENCOUNTER 2023-07-03 19:23 | Emergency (ER) | payer OTHER ==
--- NOTE | 2023-07-03 21:34 | RAD REPORT ---
EXAM DESCRIPTION: CT - [id number] - 07/03/2023 8:29 pm CLINICAL HISTORY: fall COMPARISON: No comparisons TECHNIQUE: Axial thin cut noncontrast CT images of the head were obtained. Axial thin cut noncontrast CT images of the cervical spine were obtained. Multiplanar reformatted images were generated and reviewed. All CT scans are performed using dose optimization technique as appropriate and may include automated exposure control or mA/KV adjustment according to patient size. FINDINGS: CT HEAD WITHOUT CONTRAST: No acute hemorrhage, hydrocephalus or extra-axial collection is identified.No areas of brain edema or midline shift. Moderate diffuse parenchymal volume loss. No hydrocephalus. The paranasal sinuses and mastoids are clear.The calvarium is intact. Right temporal scalp mild swell ing and small hematoma CT CERVICAL SPINE WITHOUT CONTRAST: No fracture or subluxation.Multilevel degenerative changes with degrees of spondylolisthesis secondar y to endplate remodeling and facet arthropathy, with up to 4 mm anterolisthesis of C7 over T1. Modera te to severe degrees of neural foraminal narrowing bilaterally most pronounced at C7-T1, and to lesse r degrees at C3-4 and C4-5 more on the left, and C5-6 and C6-7.No prevertebral soft tissues swelling is identified. IMPRESSION: No acute traumatic intracranial or cervical spine findings. Chronic findings as above.
--- NOTE | 2023-07-03 22:31 | ER ---
Nurse's Notes [facility] Name: Matthew Avila Age: 78 yrs Sex: Male : 1945 Arrival Date: 07/03/2023 Time: 19:23 Bed 15 Private MD: Diagnosis: History of falling Presentation: 07/02 19:31 Chief complaint: EMS states: fall at nursing facility. Patient reports no injuries or iw pain. Care prior to arrival: None. Mechanism of Injury: Fall from standing position. Trauma event details: Injury occurred in the [facility]. 19:31 Acuity: NELLY 4 iw 19:31 Method Of Arrival: EMS: [facility] iw 22:44 Coronavirus screen: At this time, the client does not indicate any symptoms associated as6 with coronavirus-19. Ebola Screen: No symptoms or risks identified at this time. Initial Sepsis Screen: Does the patient meet any 2 criteria? No. Patient's initial sepsis screen is negative. Does the patient have a suspected source of infection? No. Patient's initial sepsis screen is negative. Risk Assessment: Do you want to hurt yourself or someone else? Patient reports no desire to harm self or others. Onset of symptoms was July 03, 2023. Trauma Activation: Not Applicable Physician: ED Physician; Name: ; Notified At: ; Arrived At: Physician: General Surgeon; Name: ; Notified At: ; Arrived At: Physician: Radiology; Name: ; Notified At: ; Arrived At: Physician: Respiratory; Name: ; Notified At: ; Arrived At: Physician: Lab; Name: ; Notified At: ; Arrived At: Historical: - PMHx: 22:45 Dementia; Hypertensive disorder; Type 2 Diabetes Mellitus; Hypercholesterolemia; as6 - PSHx: 22:45 Left shoulder sx; as6 - Immunization history: Last tetanus immunization: - up to date. - Infectious Disease History:: Denies. CDIFF, C. Auris, ESBL, MRSA (w/in 1 year), VRE (w/in 1 year), TB, . - Social history:: Smoking status: unknown. Screenin:31 Abuse screen: Denies threats or abuse. Nutritional screening: No deficits noted. iw Tuberculosis screening: No symptoms or risk factors identified. 19:37 [facility] ED Fall Risk Assessment (Adult) History of falling in the last 3 months, iw including since admission Yes- single mechanical fall (1 pt) Confusion or Disorientation Yes (5 pts) Intoxicated or Sedated No (0 pts) Impaired Gait Yes (1 pt) Mobility Assist Device Used Yes (1 pt) Altered Elimination No (0 pt) Score/Fall Risk Level 3 or more points = High Risk Oriented to surroundings, Maintained a safe environment, Assessed \T\ reinforced patient's understanding of fall precautions, Hourly rounding (assess needs \T\ fall precautionary measures) done, Used ambulatory aids as needed (educated on \T\ assisted with). Primary Survey: 19:31 NO uncontrolled hemorrhage observed. A: The client is awake and alert. The airway is iw patent. The client is alert. Airway: patent. Breathing/Chest: Spontaneous respiratory effort, equal unlabored respirations, breath sounds clear bilaterally, regular pattern, symmetrical chest rise and fall. Circulation: No external hemorrhage present. Regular and strong central pulse, skin warm/dry/normal color. Disability Pupils are equal, round, reactive to light and accommodation. Client is alert. Exposure/Environment: A warming method has been applied:. Reassessment Alertness and Airway: Awake and alert. The airway is patent. Breathing: Spontaneous respiratory effort, equal unlabored respirations, breath sounds clear bilaterally, regular pattern with symmetrical chest rise and fall. Circulation: No external hemorrhage noted. Regular and strong central pulse, skin warm/dry/normal color. Disability: Pupils Pupils are equal, round, reactive to light and accomodation. Alert. Assessment: 19:31 General: Appears in no apparent distress. Behavior is calm, cooperative, appropriate iw for age. Pain: Denies pain. 22:43 General: spoke with Lorrie from [facility] and gave report. she said she as6 would call [facility] ambulance to come get pt . 07/03 00:00 Reassessment: Patient report given to [facility]. Patient being transported back to [facility]. Vital Signs: 07/02 19:31 BP 138 / 94; Pulse 70; Resp 18; Temp 97.8; Pulse Ox 98% ; Pain 0/10; iw 21:00 BP 165 / 97; Pulse 70; Resp 18; Pulse Ox 99% ; cp4 07/03 00:00 BP 170 / 95; Pulse 75; Resp 16; Temp 98.1; Pulse Ox 97% on R/A; 1 07/02 19:31 Pain Scale: Adult iw Lianne Coma Score: 07/02 19:31 Eye Response: spontaneous(4). Motor Response: obeys commands(6). Verbal Response: iw oriented(5). Total: 15. Trauma Score (Adult): 19:31 Eye Response: spontaneous(1); Verbal Response: oriented(1); Motor Response: obeys iw commands(2); Systolic BP: > 89 mm Hg(4); Respiratory Rate: 10 to 29 per min(4); [place] Score: 15; Trauma Score: 12 ED Course: 19:25 Patient arrived in ED. wm 19:30 Blanca Lin, CHLOE is Primary Nurse. iw 19:31 Bed in low position. Call light in reach. Side rails up X 1. iw 19:31 O2 via room air. iw 19:32 Triage completed. iw 19:32 Gregory Mckee PA is PHCP. cp 19:32 Gregory Sotomayor MD is Attending Physician. cp 19:37 Provided Education on: falls. iw 19:37 No provider procedures requiring assistance completed. iw 20:29 CT Head C Spine In Process Unspecified. EDMS 21:18 Arm band placed on right wrist. Patient placed in an exam room, on a stretcher. cp4 22:44 Patient did not have IV access during this emergency room visit. as6 22:45 Thermoregulation: warm blanket given to patient. as6 Administered Medications: No medications were administered Medication: 19:37 VIS not applicable for this client. iw Intake: 19:31 PO: 0ml; Total: 0ml. iw Output: 19:31 Urine: 0ml; Total: 0ml. iw Outcome: 22:30 Discharge ordered by . cp 22:44 Condition: stable as6 22:44 Discharged to [facility]. Report called to Lorrie as6 22:44 Patient's length of stay in the Emergency Department was greater than 2 hours. pending dispo Patient's length of stay extended due to 22:45 Discharge instructions given to [facility], Instructed on discharge instructions, as6 follow up and referral plans. Demonstrated understanding of instructions, follow-up care, 07/03 00:29 Patient left the ED. pf1 Signatures: Dispatcher [employer] EDTN Blanca Lin RN RN iw Page, RADHA Jenkins cp, Wendy wm Slawson, Ashby, RN RN as6 Jovita Ingram RN RN pf1 Ekta Mo cp4
--- NOTE | 2023-07-03 22:31 | EDPHYS ---
Physician Documentation [facility] Name: Matthew Avila Age: 78 yrs Sex: Male : 1945 Arrival Date: 07/03/2023 Time: 19:23 Bed 15 Private MD: ED Physician Gregory Sotomayor HPI: 07/02 19:45 This 78 yrs old Male presents to ER via EMS with complaints of Fall Injury. cp 19:45 Unable to obtain HPI due to baseline dementia. Patient is a 78-year-old male with past cp medical history significant for dementia who resides in a [facility]. Patient was brought to the emergency department via EMS after reported fall. No other history giving. Patient appears in no discomfort but is unable to provide any history. Historical: - PMHx: 22:45 Dementia; Hypertensive disorder; Type 2 Diabetes Mellitus; Hypercholesterolemia; as6 - PSHx: 22:45 Left shoulder sx; as6 - Immunization history: Last tetanus immunization: - up to date. - Infectious Disease History:: Denies. CDIFF, C. Auris, ESBL, MRSA (w/in 1 year), VRE (w/in 1 year), TB, . - Social history:: Smoking status: unknown. ROS: 19:45 Neuro: Negative for altered mental status, cp 19:45 Unable to obtain ROS due to baseline dementia, cp Exam: 19:52 Constitutional: The patient appears in no acute distress, alert, awake, non-toxic, well cp developed, frail, 19:52 Head/face: Exam is negative for acute findings. 19:52 Eyes: Periorbital structures: appear normal, Pupils: equal, round, and reactive to light and accomodation, Conjunctiva: normal, no exudate, no injection, Sclera: no appreciated abnormality, Lids and lashes: appear normal, bilaterally, 19:52 ENT: External ear(s): are unremarkable, Nose: is normal, Mouth: Lips: moist, Oral mucosa: pink and intact, moist, Posterior pharynx: is normal, airway is patent, no erythema, no exudate, 19:52 Neck: C-spine: vertebral tenderness, is not appreciated, crepitus, is not appreciated, 19:52 Chest/axilla: Inspection: normal, Palpation: is normal, no crepitus, no tenderness, 19:52 Cardiovascular: Rate: normal, JVD: is not appreciated, 19:52 Respiratory: the patient does not display signs of respiratory distress, Respirations: normal, no use of accessory muscles, no retractions, labored breathing, is not present, Breath sounds: are clear throughout, no decreased breath sounds, no stridor, no wheezing, 19:52 Abdomen/GI: Inspection: abdomen appears normal, Palpation: abdomen is soft and non-tender, in all quadrants, 19:52 Back: pain, is absent, ROM is normal, 19:52 Musculoskeletal/extremity: Exam is negative for decreased range of motion, deformity, injury, 19:52 Skin: cellulitis, is not appreciated, no rash present. 19:52 Neuro: Orientation: no acute changes, per EMS, Mentation: no acute changes, per EMS, Motor: moves all fours, no focal deficits, Vital Signs: 19:31 BP 138 / 94; Pulse 70; Resp 18; Temp 97.8; Pulse Ox 98% ; Pain 0/10; iw 21:00 BP 165 / 97; Pulse 70; Resp 18; Pulse Ox 99% ; cp4 04 00:00 BP 170 / 95; Pulse 75; Resp 16; Temp 98.1; Pulse Ox 97% on R/A; pf1 07/02 19:31 Pain Scale: Adult iw [place] Coma Score: 07/02 19:31 Eye Response: spontaneous(4). Motor Response: obeys commands(6). Verbal Response: iw oriented(5). Total: 15. Trauma Score (Adult): 19:31 Eye Response: spontaneous(1); Verbal Response: oriented(1); Motor Response: obeys iw commands(2); Systolic BP: > 89 mm Hg(4); Respiratory Rate: 10 to 29 per min(4); [place] Score: 15; Trauma Score: 12 MDM: 19:32 Patient medically screened. cp 22:00 Differential diagnosis: closed head injury, contusion, fracture, laceration, multiple cp trauma. 22:30 Data reviewed: vital signs, nurses notes, radiologic studies, CT scan, and as a result, cp I will discharge patient. 22:30 Care significantly affected by the following chronic conditions: dementia. ED course: cp VSS. No signs of distress, patient observed to be ambulatory as he got up from stretcher and moved to chair. Will discharge to [facility]p. 07/02 19:39 Order name: CT Head C Spine; Complete Time: 22:13 cp 07/02 22:15 Interpretation: Reviewed report. cp Administered Medications: No medications were administered Disposition Summary: 07/03/23 22:30 Discharge Ordered Notes: Location: Home cp Problem: new cp Symptoms: have improved cp Condition: Stable cp Diagnosis - History of falling cp Followup: cp - With: Private Physician - When: 1 - 2 days - Reason: Worsening of condition Discharge Instructions: - Discharge Summary Sheet cp - Fall Prevention in the Home, Adult cp Forms: - Medication Reconciliation Form cp - Antibiotic Education cp - Prescription Opioid Use cp - Patient Portal Instructions cp - Leadership Thank You Letter cp Signatures: Dispatcher [employer] Blanca Mcgrath, RN RN Gregory Jc PA PA cp Alec Ramon RN RN as6
[2023-07-04 01:19] VITALS: BP 170/95; TEMP 98.1; O2SAT 97
== END 2023-07-04 00:29 | disposition home or self-care (01) ==
LOC: ER 19:23
DX: Z04.3 Encounter for examination and observation following other accident (principal); Z91.81 History of falling; F03.90 Unspecified dementia, unspecified severity, without behavioral disturbance, psychotic disturbance, mood disturbance, and anxiety
CPT/HCPCS: 70450; 72125; 99285

== ENCOUNTER 2023-08-04 15:31 | Inpatient (IN) | payer OTHER ==
[2023-08-04 16:15] LABS: Absolute Eosinophils 0.3 K/uL (0-0.5); Absolute Lymphocytes (CBC) 0.6 K/uL (0.7-4.9); Absolute Monocytes 0.4 K/uL (0.1-1.3); Basophils % 0.4 % (0-1.3); Eosinophils % 4.4 % (0-4.4); Hematocrit 28.9 % (39.6-49.0); Hemoglobin 9.5 g/dL (13.6-17.9); Lymphocytes % 8.8 % (15.3-44.8); MCHC 32.7 g/dL (32.0-36.0); MCV 91.8 fL (80-100); MPV 7.6 fL (7.6-11.3); Monocytes % 5.5 % (3.3-12.3); Neutrophils % 80.9 % (41.7-73.7); Platelets 333 thou/uL (152-406); RBC Red Blood Cell Count 3.15 M/uL (4.33-5.43); Red Cell Distribution Width 17.2 % (12.1-15.2)
[2023-08-04 16:25] LABS: Magnesium 2.1 mg/dL (1.6-2.4); Troponin High Sensitivity 33.9 pg/mL (<58.9)
--- NOTE | 2023-08-04 17:44 | RAD REPORT ---
EXAM DESCRIPTION: RADChest Single View08/04/2023 4:10 pm CLINICAL HISTORY: CHEST PAIN COMPARISON: Chest Single View dated 06/13/2023; Chest Single View dated 06/13/2023; Chest Single View da beata 05/21/2022; Chest Pa And Lat (2 Views) dated 05/13/2022; Head C Spine Mpr Wo Con dated 08/04/2023; H ead C Spine Cap Wo Con dated 06/13/2023 TECHNIQUE: Portable AP view of the chest. FINDINGS: Minimal right basilar streaky opacities, may reflect atelectasis or early airspace disease . Persistent left hemidiaphragm elevation and underlying atelectasis. No pneumothorax or effusion. T he cardiomediastinal contours are unremarkable. IMPRESSION: Minimal right basilar streaky opacities may represent atelectasis or early airspace dise ase.
--- NOTE | 2023-08-04 17:59 | RAD REPORT ---
EXAM DESCRIPTION: CT - [id number] - 08/04/2023 4:57 pm CLINICAL HISTORY: Trauma, head and neck injury. fall TECHNIQUE: Axial thin cut noncontrast CT images of the head were obtained. Axial thin cut noncontrast CT images of the cervical spine were obtained. Multiplanar reformatted images were generated and reviewed. All CT scans are performed using dose optimization technique as appropriate and may include automated exposure control or mA/KV adjustment according to patient size. FINDINGS: Motion artifact limits evaluation despite attempts at repeat imaging. CT HEAD WITHOUT CONTRAST: No acute hemorrhage, hydrocephalus or extra-axial collection is identified. Moderate diffuse parenchy mal volume loss, stable. Periventricular and deep white matter hypodensities, nonspecific stable, mos t suggestive chronic small vessel ischemic changes. No areas of brain edema or midline shift. Polypoidal mucosal thickening in the left maxillary sinus.The calvarium is intact. CT CERVICAL SPINE WITHOUT CONTRAST: No fracture or subluxation. At least moderate degenerative changes with minimal degrees of spondyloli sthesis. No significant subluxation. Variable degrees of disc height loss and foraminal narrowing, wi th at least moderate narrowing bilaterally at C3-4 and on the left at C4-5. No prevertebral soft tiss ues swelling is identified. IMPRESSION: No acute traumatic intracranial or cervical spine findings.
--- NOTE | 2023-08-04 18:07 | EDPHYS ---
Physician Documentation [facility] Name: Matthew Avila Age: 78 yrs Sex: Male : 1945 Arrival Date: 08/04/2023 Time: 15:31 Bed 20 Private MD: ED Physician Venu Pickard HPI: 08/03 16:14 This 78 yrs old Male presents to ER via EMS with complaints of Fall Injury. ms3 16:14 78-year-old male with past medical history of dementia, hyperlipidemia, hypertension, ms3 diabetes, anxiety presents to the emergency department via [facility] for fall. EMS notes patient did strike his head. It is unknown if patient had loss of consciousness. Patient is on aspirin. Nursing facility noted patient has had bilateral lower extremity edema for months. EMS noted patient's blood glucose level to be 48. 250 mL of D10 was administered.. Historical: - Allergies: 15:40 No Known Allergies; kc6 - PMHx: 15:40 Dementia; Hypercholesterolemia; Hypertensive disorder; Type 2 Diabetes Mellitus; kc6 Anxiety; Kidney disease; Depressive disorder; Atrial fibrillation; - PSHx: 15:40 Left shoulder sx; kc6 - Immunization history:: Adult Immunizations unknown. - Infectious Disease History:: Denies. - Social history:: Smoking status: unknown. ROS: 16:14 Constitutional: Negative for fever, and chills. Neck: Negative for injury, pain, and ms3 swelling, Cardiovascular: Negative for chest pain, and palpitations. Abdomen/GI: Negative for abdominal pain, nausea, vomiting, diarrhea, and constipation, 16:14 Respiratory: Positive for cough, 16:14 MS/extremity: Positive for Lower extremity edema, Exam: 16:14 Constitutional: This is a well developed, well nourished patient who is awake, alert, ms3 and in no acute distress. Neck: Trachea midline, no cervical lymphadenopathy. Supple, full range of motion without nuchal rigidity, or vertebral point tenderness. No Meningismus. Chest/axilla: Normal chest wall appearance and motion. Nontender with no deformity. Cardiovascular: Regular rate and rhythm with a normal S1 and S2. No gallops, murmurs, or rubs. Normal PMI, no JVD. No pulse deficits. Respiratory: Lungs have equal breath sounds bilaterally, clear to auscultation and percussion. No rales, rhonchi or wheezes noted. No increased work of breathing, no retractions or nasal flaring. Abdomen/GI: Soft, non-tender, with normal bowel sounds. No distension or tympany. No guarding or rebound. No evidence of tenderness throughout. 16:14 Head/face: Noted is contusion, that is superficial, of the Left face, 16:14 Skin: injury, abrasion(s), small abrasion noted, of the Left face, 16:22 ECG was reviewed by the Attending Physician. ms3 Vital Signs: 15:39 BP 159 / 108; Pulse 85; Resp 20 S; Pulse Ox 95% on R/A; kc6 16:45 BP 164 / 98; Pulse 80; Resp 18 S; Pulse Ox 96% on R/A; kc6 17:47 BP 153 / 106; Pulse 86; Resp 19 S; Pulse Ox 94% on R/A; kc6 19:11 BP 168 / 96; Pulse 78; Resp 21 S; Pulse Ox 96% on R/A; kc6 20:00 BP 162 / 115; Pulse 68; Resp 18; Pulse Ox 96% ; cp4 21:00 BP 166 / 110; Pulse 63; Resp 18; Pulse Ox 98% ; cp4 22:00 BP 167 / 94; Pulse 69; Resp 18; Pulse Ox 97% ; cp4 23:00 BP 144 / 70; Pulse 69; Resp 18; Pulse Ox 97% ; cp4 MDM: 15:38 Patient medically screened. ms3 18:06 Differential diagnosis: fracture, Heart failure vs anemia vs ICH. Data reviewed: vital ms3 signs, nurses notes, lab test result(s), EKG, radiologic studies, and as a result, I will admit patient. Consideration of Admission/Observation Patient was admitted/placed on observation. Management of patient was discussed with the following: Hospitalist: Dr Shields. I considered the following discharge prescriptions or medication management in the emergency department Medications were administered in the Emergency Department. See MAR. Independent interpretation of the following test(s) in the Emergency Department EKG: See my EKG interpretation above X-Ray: My interpretation is CXR images reveiwed by me show left hemidiaphragm elevation. Historians other than the Patient: EMS: [facility]. Counseling: I had a detailed discussion with the patient and/or guardian regarding the historical points, exam findings, and any diagnostic results supporting the discharge/admit diagnosis, lab results, radiology results, the need for further work-up and treatment in the hospital. ED course: Discussed necessity of admission with patient's . She understands/ agrees with plan. All questions answered. Patient remains in stable condition in the Emergency Deaprtment.. 08/03 15:39 Order name: Basic Metabolic Panel; Complete Time: 16:26 ms3 08/03 15:39 Order name: CBC with Diff; Complete Time: 16:22 ms3 08/03 15:39 Order name: Magnesium; Complete Time: 16:26 ms3 08/03 15:39 Order name: NT PRO-BNP; Complete Time: 16:26 ms3 08/03 15:39 Order name: Troponin HS; Complete Time: 16:26 ms3 08/03 18:27 Order name: Urinalysis w/ reflexes EDMS 08/03 18:27 Order name: CBC with Automated Diff EDMS 08/03 18:27 Order name: CBC with Automated Diff EDMS 08/03 18:27 Order name: Comprehensive Metabolic Panel EDMS 08/03 18:27 Order name: Comprehensive Metabolic Panel EDMS 08/03 18:27 Order name: Troponin High Sensitivity EDMS 08/03 18:27 Order name: Troponin High Sensitivity EDMS 08/03 18:27 Order name: Troponin High Sensitivity EDMS 08/03 18:27 Order name: Troponin High Sensitivity EDMS 08/03 15:39 Order name: XRAY Chest (1 view); Complete Time: 18:04 ms3 08/03 16:22 Order name: CT Head C Spine; Complete Time: 18:04 ms3 08/03 15:39 Order name: EKG; Complete Time: 15:40 ms3 08/03 15:39 Order name: Cardiac monitoring; Complete Time: 16:01 ms3 08/03 15:39 Order name: EKG - Nurse/Tech; Complete Time: 16:01 ms3 08/03 15:39 Order name: IV Saline Lock; Complete Time: 15:43 ms3 08/03 15:39 Order name: Labs collected and sent; Complete Time: 16:01 ms3 08/03 15:39 Order name: O2 Per Protocol; Complete Time: 15:43 ms3 08/03 15:39 Order name: O2 Sat Monitoring; Complete Time: 15:43 ms3 EC:22 Rate is 78 beats/min. Rhythm is irregularly irregular. QRS Bowie is Normal. QRS interval ms3 is normal. Clinical impression: Atrial Fibrillation. Interpreted by me. Reviewed by me. Administered Medications: 18:45 Drug: Furosemide IVP 40 mg IVP once; give over 2 minutes Route: IVP; Site: right hand; kc6 19:12 Follow up: Response: No adverse reaction kc6 Disposition Summary: 08/04/23 18:06 Hospitalization Ordered Notes: Hospitalization Status: Inpatient Admission ms3 Provider: Darren Shields ms3 Condition: Stable ms3 Problem: new ms3 Symptoms: are unchanged ms3 Bed/Room Type: Standard ms3 Location: Telemetry/MedSurg (Inpatient)(08/05/23 07:01) eb Room Assignment: [facility](08/05/23 07:01) Diagnosis - Heart failure, unspecified ms3 - Edema, unspecified ms3 - Fall on same level, unspecified ms3 - Essential (primary) hypertension ms3 Forms: - Medication Reconciliation Form ms3 - SBAR form ms3 - Leadership Thank You Letter ms3 Signatures: Dispatcher [employer] EDMS Julieta Paige eb Venu Pickard DO DO ms3 Bea Xavier, RN RN kc6 Sophia Sethi, CHLOE RN kb3 Corrections: (The following items were deleted from the chart) 15:40 15:40 BASIC METABOLIC PANEL+C.LAB.BRZ ordered. EDMS EDMS 15:40 15:40 CBC+H.LAB.BRZ ordered. EDMS EDMS 15:40 15:40 MAGNESIUM+C.LAB.BRZ ordered. EDMS EDMS 15:40 15:40 PROBNP+C.LAB.BRZ ordered. EDMS EDMS 15:40 15:40 Troponin High Sensitivity+C.LAB.BRZ ordered. EDMS EDMS 19:19 18:06 Telemetry/MedSurg (Inpatient) ms3 kb3 19:19 18:06 ms3 kb3 08/04 07:01 08/03 19:19 [facility] ER HOLD kb3 eb 08/04 07:01 08/03 19:19 ERHOLD- kb3 eb
--- NOTE | 2023-08-04 18:07 | ER ---
Nurse's Notes [facility] Name: Matthew Avila Age: 78 yrs Sex: Male : 1945 Arrival Date: 08/04/2023 Time: 15:31 Bed 20 Private MD: Diagnosis: Heart failure, unspecified;Edema, unspecified;Fall on same level, unspecified;Essential (primary) hypertension Presentation: 08/03 15:39 Chief complaint: EMS states: PT IS FROM [facility] AND HAD A WITNESSED FALL BY STAFF. NO kc6 LOC, TAKES A BABY ASPIRIN DAILY. Coronavirus screen: At this time, the client does not indicate any symptoms associated with coronavirus-19. Ebola Screen: No symptoms or risks identified at this time. Initial Sepsis Screen: Does the patient meet any 2 criteria? Altered Mental Status. No. Patient's initial sepsis screen is negative. Does the patient have a suspected source of infection? No. Patient's initial sepsis screen is negative. Risk Assessment: Do you want to hurt yourself or someone else? Patient reports no desire to harm self or others. Onset of symptoms was August 04, 2023. 15:39 Method Of Arrival: EMS: [facility] kc6 15:39 Acuity: NELLY 3 kc6 Historical: - Allergies: 15:40 No Known Allergies; kc6 - PMHx: 15:40 Dementia; Hypercholesterolemia; Hypertensive disorder; Type 2 Diabetes Mellitus; kc6 Anxiety; Kidney disease; Depressive disorder; Atrial fibrillation; - PSHx: 15:40 Left shoulder sx; kc6 - Immunization history:: Adult Immunizations unknown. - Infectious Disease History:: Denies. - Social history:: Smoking status: unknown. Screenin:42 [facility] ED Fall Risk Assessment (Adult) History of falling in the last 3 months, kc6 including since admission Yes- single mechanical fall (1 pt) Confusion or Disorientation Yes (5 pts) Intoxicated or Sedated No (0 pts) Impaired Gait Yes (1 pt) Mobility Assist Device Used Yes (1 pt) Altered Elimination No (0 pt) Score/Fall Risk Level 3 or more points = High Risk. Abuse screen: Denies threats or abuse. Denies injuries from another. Nutritional screening: No deficits noted. Tuberculosis screening: No symptoms or risk factors identified. Assessment: 16:03 General: Appears in no apparent distress. comfortable, well groomed, well developed, kc6 Behavior is calm, cooperative, appropriate for age. Pain: Denies pain. Neuro: Level of Consciousness is awake, alert, obeys commands, Oriented to person, Appropriate for age. Cardiovascular: Denies chest pain, Heart tones S1 S2 present Capillary refill < 3 seconds Rhythm is atrial fibrillation. Respiratory: Airway is patent Trachea midline Respiratory effort is even, labored, pursed lip, Respiratory pattern is symmetrical, Breath sounds with crackles bilaterally. GI: No signs and/or symptoms were reported involving the gastrointestinal system. : No signs and/or symptoms were reported regarding the genitourinary system. EENT: No signs and/or symptoms were reported regarding the EENT system. Derm: No signs and/or symptoms reported regarding the dermatologic system. Skin is fragile, is thin, with poor turgor Skin is dry, Skin is pale, Skin temperature is warm. Musculoskeletal: No signs and/or symptoms reported regarding the musculoskeletal system. Circulation, motion, and sensation intact. Capillary refill < 3 seconds, Range of motion: intact in all extremities. 16:44 Reassessment: Patient appears in no apparent distress at this time. No changes from kc6 previously documented assessment. Patient and/or family updated on plan of care and expected duration. Pain level reassessed. 17:46 Reassessment: Patient appears in no apparent distress at this time. No changes from kc6 previously documented assessment. Patient and/or family updated on plan of care and expected duration. Pain level reassessed. 18:46 Reassessment: Patient appears in no apparent distress at this time. No changes from kc6 previously documented assessment. Patient and/or family updated on plan of care and expected duration. Pain level reassessed. Vital Signs: 15:39 BP 159 / 108; Pulse 85; Resp 20 S; Pulse Ox 95% on R/A; kc6 16:45 BP 164 / 98; Pulse 80; Resp 18 S; Pulse Ox 96% on R/A; kc6 17:47 BP 153 / 106; Pulse 86; Resp 19 S; Pulse Ox 94% on R/A; kc6 19:11 BP 168 / 96; Pulse 78; Resp 21 S; Pulse Ox 96% on R/A; kc6 20:00 BP 162 / 115; Pulse 68; Resp 18; Pulse Ox 96% ; cp4 21:00 BP 166 / 110; Pulse 63; Resp 18; Pulse Ox 98% ; cp4 22:00 BP 167 / 94; Pulse 69; Resp 18; Pulse Ox 97% ; cp4 23:00 BP 144 / 70; Pulse 69; Resp 18; Pulse Ox 97% ; cp4 ED Course: 15:38 Patient arrived in ED. ms3 15:38 Venu Pickard DO is Attending Physician. ms3 15:39 Bea Xavier RN is Primary Nurse. kc6 15:40 Triage completed. kc6 15:40 Arm band placed on. kc6 15:42 Patient has correct armband on for positive identification. Bed in low position. Call kc6 light in reach. Side rails up X2. Client placed on continuous cardiac and pulse oximetry monitoring. NIBP monitoring applied. Lights dimmed. Warm blanket given. Pillow given. 15:43 Maintain EMS IV. Dressing intact. Good blood return noted. Site clean \T\ dry. Gauge \T\ mario 6 site: 22g rhand. 16:12 XRAY Chest (1 view) In Process Unspecified. EDMS 16:54 CT Head C Spine In Process Unspecified. EDMS 18:06 Darren Shields MD is Hospitalizing Provider. ms3 18:30 Diet: Patient given a regular meal tray. kc6 19:00 Report given to Hetal Mo RN. kc6 20:15 Primary Nurse role handed off by Bea Xavier, CHLOE rv1 23:55 Ekta Mo is Primary Nurse. cp4 08/04 00:34 Provided Education on: admission. cp4 00:34 No provider procedures requiring assistance completed. Patient admitted, IV remains in cp4 place. 07:42 Primary Nurse role handed off by Ekta Mo eb Administered Medications: 08/03 18:45 Drug: Furosemide IVP 40 mg IVP once; give over 2 minutes Route: IVP; Site: right hand; kc6 19:12 Follow up: Response: No adverse reaction kc6 Medication: 08/04 00:34 VIS not applicable for this client. cp4 Outcome: 08/03 18:06 Decision to Hospitalize by Provider. ms3 08/04 00:34 Admitted to ER Hold. Please see [facility] for further documentation. cp4 Condition: stable Instructed on the need for admit, 07:50 Patient left the ED. eb Signatures: Dispatcher [employer] EDMS Julieta Paige Marcus, DO DO ms3 Bea Xavier RN RN kc6 Brenda Anne 1 Ekta Mo cp4
[2023-08-04] MEDS ORDERED: FUROSEMIDE 40 MG/4 ML VIAL ONE (18:20)
[2023-08-04] MEDS ORDERED: ACETAMINOPHEN 325 MG TABLET PO PRN (18:21)
[2023-08-04] MEDS ORDERED: ONDANSETRON 4 MG/2 ML VIAL IV PRN (18:21)
--- NOTE | 2023-08-04 18:21 | P.HP ---
Certification for Inpatient Patient admitted to: Observation With expected LOS: <2 Midnights Practitioner: I am a practitioner with admitting privileges, knowledge of patient current condition, hospital course, and medical plan of care. Services: Services provided to patient in accordance with Admission requirements found in Title 42 Section 412.3 of the Code of Federal Regulations Patient History Date of Service: 08/05/23 Reason for admission: Bilateral lower extremity swelling History of Present Illness: 78-year-old male with past medical history of hypertension, diabetes, CKD stage II, anxiety, dementia advanced, hyperlipidemia, history of atrial fibrillation, depression, history of CHF Who was transferred from nursing facility where he had fall. Patient is a poor historian hence most of the history is obtained from the chart review and also talking to the ER physician and family member at the bedside. Patient has been demented and has been falling on and off as he was having some balance issues. Today he was walking and all of a sudden lost balance and hit his head on the left supraorbital ridge. Patient was not reported to have loss of consci ousness. Denies any chest pain or shortness of breath. Patient has been having bilateral lower extremity edema for months. Family stated that he was assessed in [facility] and was found to have some cardiology condition but did not want to do anything aggressively. Patient was not to be hypoglycemic with EMS and was given D10 Patient was assessed in the ER and was admitted for further management of possible CHF exacerbation. Allergies No Known Allergies Allergy (Verified 08/04/23 23:54) Home medications list reviewed: Yes Home Medications: Amlodipine Besylate 5 mg PO BID 05/13/22 Atorvastatin Calcium [Lipitor*] 40 mg PO BEDTIME 05/13/22 Montelukast [Singulair*] 10 mg PO DAILY 05/13/22 Multivitamin [One-Daily Multi-Vitamin] 1 each PO DAILY 05/13/22 Tamsulosin HCl 0.4 mg PO BEDTIME 05/13/22 Turmeric 400 mg PO DAILY 05/13/22 Venlafaxine HCl [Effexor XR] 150 mg PO DAILY 05/13/22 carvediloL [Carvedilol] 12.5 mg PO BID 05/13/22 Indapamide 1.25 mg PO DAILY 04/28/23 Insulin Glargine,Hum.rec.anlog [Toujeo Solostar] 14 units SQ DAILY 04/28/23 Quetiapine [Seroquel*] 25 mg PO BID 04/28/23 Ramipril 2.5 mg PO BEDTIME 04/28/23 Trazodone [Desyrel*] 25 mg PO BEDTIME PRN 04/28/23 clonazePAM [Clonazepam] 0.5 mg PO BID 04/28/23 Amox/Clavulanate [Augmentin 500-125 mg Tab] 500 mg PO BID 5 Days #10 tab 05/03/23 - Past Medical/Surgical History Diabetic: Yes Past Medical History: Reviewed- Non-Contributory -: Dementia -: HTN -: HLD -: IDDM Type II -: CKD III (Dr. Cook/ Dr. Hernandez) -: Frequent Falls Past Surgical History: Reviewed- Non-Contributory -: Left shoulder surgery - Family History Family History: Reviewed- Non-Contributory - Social History Smoking Status: Never smoker Alcohol use: No CD- Drugs: No Caffeine use: No Review of Systems 10-point ROS is otherwise unremarkable Physical Examination - Vital Signs Temperature: 97.8 F Blood Pressure: 140/78 Pulse: 76 Respirations: 20 Pulse Ox (%): 92 - Physical Exam General: Alert, Mild distress, Confused HEENT: Normocephalic, Other (contusion left supra orbital ridge ) Neck: Supple, 2+ carotid pulse no bruit Respiratory: Diminished, Crackles/rales Cardiovascular: Regular rate/rhythm, Normal S1 S2, Edema Capillary refill: <2 Seconds Gastrointestinal: Soft and benign, W/out hepatosplenomegaly Musculoskeletal: No clubbing, Swelling Integumentary: No rashes Neurological: Normal speech, Other (Alert, Awake , Demented ) Lymphatics: No axilla or inguinal lymphadenopathy - Studies Laboratory Data (last 24 hrs) 08/04/23 08/04/23 15:58 15:58 WBC 7.40 Hgb 9.5 L Hct 28.9 L Plt Count 333 Sodium 141 Potassium 4.0 BUN 44 H Creatinine 1.71 H Glucose 177 H Magnesium 2.1 Assessment and Plan - Problems (Diagnosis) (1) Acute exacerbation of CHF (congestive heart failure) Current Visit: Yes Status: Acute Plan: Acute on chronic CHF possibly systolic/diastolic Monitor closely on telemetry Started on aggressive diuresis Oxygen supplementation as needed Continue home medications Titrate as needed Will obtain an echocardiogram Cardiology consult Advanced dementia Supportive measures Continue home medications Multiple falls PT OT evaluation CT head negative for any acute changes Hypertension Antihypertensives titrated Continue home medications and titrate as needed Hyperlipidemia Continue statin CKD stage II Monitor renal parameters Electrolytes monitor and replace accordingly GI/DVT prophylaxis GI/DVT prophylaxis Advanced directive : Full code for now, patient has an advance directive states that if he encounters in irreversible medical condition he does not want to ex tend his life with mechanical support . Discharge Plan: Detention Plan to discharge in: 48 Hours - Advance Directives Does patient have a Living Will: No Does patient have a Durable POA for Healthcare: No Time Spent Managing Pts Care (In Minutes): 48
[2023-08-04] MEDS: ENOXAPARIN 30 MG/0.3 ML SQ SCH (20:00)
[2023-08-04] MEDS ORDERED: ENOXAPARIN 30 MG/0.3 ML SQ ONE (20:13)
[2023-08-05 00:18] LABS: Specific Gravity 1.007 (1.005-1.030); Urine Bilirubin NEGATIVE (Negative); Urine Blood Negative (Negative); Urine Clarity Clear (Clear); Urine Color Colorless (Yellow); Urine Glucose NEGATIVE (Negative); Urine Ketones NEGATIVE (Negative); Urine Microscopic Reflex YN NO UMIC; Urine Nitrite NEGATIVE (Negative); Urine Protein NEGATIVE (Negative); Urine Urobilinogen Normal (Normal)
[2023-08-05 00:39] VITALS: BMI 29.8
[2023-08-05] MEDS: FUROSEMIDE 20 MG/ 2ML VIAL IV SCH (01:00)
[2023-08-05] MEDS ORDERED: FUROSEMIDE 20 MG/ 2ML VIAL ONE (02:34)
[2023-08-05 05:14] LABS: Absolute Basophils 0.1 K/uL (0-0.5); Absolute Eosinophils 0.3 K/uL (0-0.5); Absolute Lymphocytes (CBC) 0.7 K/uL (0.7-4.9); Absolute Monocytes 0.4 K/uL (0.1-1.3); Absolute Neutrophil 7.1 K/uL (1.8-8.0); Basophils % 0.6 % (0-1.3); Eosinophils % 3.8 % (0-4.4); Hematocrit 30.5 % (39.6-49.0); Lymphocytes % 7.8 % (15.3-44.8); MCH 29.7 pg (27.0-35.0); MCHC 32.7 g/dL (32.0-36.0); MPV 7.2 fL (7.6-11.3); Neutrophils % 82.8 % (41.7-73.7); Platelets 313 thou/uL (152-406); RBC Red Blood Cell Count 3.36 M/uL (4.33-5.43); Red Cell Distribution Width 17.1 % (12.1-15.2)
[2023-08-05 05:32] LABS: Anion Gap 8.7 mEq/L (5.0-15.0); Bilirubin Total 0.8 mg/dL (0.2-1.0); Potassium 3.7 mEq/L (3.5-5.1)
[2023-08-05] MEDS ORDERED: POTASSIUM 25 MEQ EFFERV TAB PO ONE (06:04)
--- NOTE | 2023-08-05 10:26 | P.PN ---
Subjective Date of Service: 08/05/23 Chief Complaint: Bilateral lower extremity swelling Patient is unresponsive end-stage dementia admitted for recurrent falls he is to be comfortable History of bilateral lower extremity edema Review of Systems is unable to be obtained Physical Examination - Vital Signs Temperature: 97.3 F Blood Pressure: 154/78 Pulse: 80 Respirations: 14 Pulse Ox (%): 96 - Physical Exam General: Unresponsive HEENT: Other (Large bruise R orbital area) Respiratory: Clear to auscultation bilaterally Cardiovascular: Normal pulses, Regular rate/rhythm, Edema (2 plus Left > right) Gastrointestinal: Normal bowel sounds, Soft and benign Musculoskeletal: No clubbing Integumentary: Other (Leg marianna swelling greater than Left ) Neurological: Abnormal speech - Studies Laboratory Data (last 24 hrs) 08/04/23 08/04/23 15:58 15:58 WBC 7.40 Hgb 9.5 L Hct 28.9 L Plt Count 333 Sodium 141 Potassium 4.0 BUN 44 H Creatinine 1.71 H Glucose 177 H Magnesium 2.1 Assessment And Plan - Current Problems (Diagnosis) (1) Recurrent falls Current Visit: Yes Status: Acute Plan: Patient is 78 years of age history of end-stage dementia lives in a group home admitted with recurrent falls currently unresponsive and has chronic renal failure anemia of chronic renal disease patient has a persistent left hemidiaphragm elevation otherwise no acute changes on total body CT scan and chest x-ray/ called retired age of 72 worse since last year/ Very agitated/Last Apr fall fractured hip In [place] side secured side. Sun downss. Falling a lot in NH/Walking all ove rth place. Has DMT2/end stage dementia DW increase izabela Discharge Plan: Home Plan to discharge in: 48 Hours
[2023-08-05] MEDS ORDERED: FUROSEMIDE 40 MG TABLET PO SCH (11:00)
--- NOTE | 2023-08-05 11:41 | RAD REPORT ---
EXAM DESCRIPTION: US - Extrem Venous W Compress Samson - 08/05/2023 11:35 am CLINICAL HISTORY: RO DVT COMPARISON: No comparisons TECHNIQUE: Real-time sonographic evaluation of the lower extremity deep venous systems was performed using color Doppler, grayscale, and compression. FINDINGS: Bilateral lower extremities. Normal compressibility, flow augmentation, phasic flow and spontaneous flow is identified in both the left and right lower extremity deep venous systems. No intraluminal filling defects seen. IMPRESSION: No DVT in either lower extremity.
[2023-08-05] MEDS: POTASSIUM CL SA 10 MEQ TAB PO SCH (12:02)
[2023-08-05] MEDS: ISOSORBIDE MONO SR 30 MG TAB PO SCH (12:03)
[2023-08-05] MEDS: carvediloL 6.25 MG TAB PO SCH (12:03)
[2023-08-05] MEDS: clonazePAM 0.5 MG TAB PO SCH (12:03)
[2023-08-05] MEDS: HYDRALAZINE HCL 25 MG TABLET PO SCH (12:03)
[2023-08-05] MEDS: FUROSEMIDE 40 MG/4 ML VIAL IV SCH (12:04)
[2023-08-05] MEDS: ASPIRIN 81 MG CHEWABLE TABLET PO SCH (12:04)
[2023-08-05] MEDS: BUSPIRONE HCL 5 MG TABLET PO SCH (12:04)
[2023-08-05] MEDS: INSULIN GLARGINE 100 UNIT/ML SQ SCH (13:50)
--- NOTE | 2023-08-05 13:54 | EKG ---
Test Date: 2023-08-04 Test Time: 15:50:29 [employer] Att[employer] Railroad: [place] MEASUREMENT RESULTS: Intervals: Rate: 78 [place]: QRSD: 100 QT: 422 QTc: 481 [place]: P: [place]: QRS: -5 T: 202 INTERPRETIVE STATEMENTS: Atrial fibrillation Nonspecific ST and T wave abnormality Abnormal ECG Compared to ECG 06/13/2023 20:10:05 ST (T wave) deviation now present Sinus tachycardia no longer present T-wave abnormality no longer present Electronically Signed On 08-05-23 13:53:27 CDT by Ar Boss
--- NOTE | 2023-08-05 14:46 | CON ---
Date of Consultation: 08/05/2023 Reason For Consultation: Congestive heart failure. History Of Present Illness: 78-year-old male, history of diabetes, hypertension, chronic kidney dise ase, dyslipidemia, atrial fibrillation, CHF, and dementia, presented after from a facility after a fa ll. The patient is extremely confused and when I evaluated him by bedside, he was eating his lunch a nd he already has taken his IV line off and put it in his dish. Has significant lower extremity demetrio a and orthopnea and no chest pain. Past Medical History: As outlined above in the HPI. Medications: Refer conciliation sheet for detailed list. Allergies: NO KNOWN DRUG ALLERGIES. Family History: No premature coronary artery disease or cancer. Social History: Does not smoke or drink. Does not use any drugs. Review of Systems: All systems reviewed are negative except as mentioned in HPI. Physical Examination: Vital Signs: Reviewed. Head and Neck: Pupils are equal, reactive to light. Intact eye movements. Positive JVD. No cervic al lymphadenopathy. Neck: Supple. Thyroid is not enlarged. Lungs: Crackles half the way up bilaterally. No accessory muscle use. Normal structure. Heart: Regular rate and rhythm with S3 gallop. Abdomen: Soft, nontender. Bowel sounds positive. No organomegaly. No masses or hernia. No rigidi ty or rebound. Extremities: 3 to 4+ edema bilaterally. No clubbing, cyanosis. Intact pulses. Skin: No rash. No nodule. Neurologic: Alert, awake with confusion. No focal deficits appreciated. Investigations: BUN is 43, creatinine 1.6. Cardiac enzymes are negative and hemoglobin is 10. Veno us Doppler of lower extremities showed no evidence of DVT. Assessment/recommendation: 1.Acute on chronic congestive heart failure exacerbation, severely fluid overloaded, unknown ejectio n fraction. Recommend aggressive diuresis with Lasix. Agree with 40 mg twice a day. Monitor BUN, c reatinine, electrolytes. 2.Hypertension. Blood pressure is very high, but patient is fluid overloaded severely. Should impr ove with further diuresis. Continue current management for now. 3.Dyslipidemia, on statin, to be continued. 4.Acute respiratory failure due to congestive heart failure. Plan as above. 5.Dementia. Supportive care. 6.Acute on chronic renal failure due to elevated central venous pressure. This should improve furth er with diuresis. SR/MODL Voice ID: [id number] Report ID: [id number]
[2023-08-05] MEDS: TAMSULOSIN 0.4 MG SR CAP PO SCH (20:14)
[2023-08-05] MEDS: TRAZODONE 50 MG TABLET PO PRN (20:14)
[2023-08-05] MEDS: ATORVASTATIN 40 MG TAB PO SCH (20:14)
[2023-08-05] MEDS ORDERED: carvediloL 12.5 MG TAB PO SCH (21:00)
[2023-08-06 07:19] LABS: Anion Gap 6.5 mEq/L (5.0-15.0); Potassium 3.5 mEq/L (3.5-5.1)
--- NOTE | 2023-08-06 08:31 | P.PN ---
Subjective Date of Service: 08/06/23 Chief Complaint: Bilateral lower extremity swelling Patient has end-stage dementia with lower extremity edema no change she is alert and responsive Review of Systems is unable to be obtained Physical Examination - Vital Signs Temperature: 97.4 F Blood Pressure: 141/98 Pulse: 62 Respirations: 19 Pulse Ox (%): 94 - Physical Exam General: Alert Respiratory: Clear to auscultation bilaterally Cardiovascular: Edema, Irregular heart rate/rhythm Assessment And Plan - Current Problems (Diagnosis) (1) Recurrent falls Current Visit: Yes Status: Acute Plan: Patient has a history of recurrent falls with lower extremity edema plan to add some spironolactone changed to p.o. Lasix DC clonazepam increase carvedilol to 12.5 mg twice a day DC daily hydralazine patient's prognosis is poor plan to transfer back to the halfway so has A-fib high risk for anticoagulation due to recurrent falls tolerate with carvedilol patient's renal function has improved
[2023-08-06] MEDS: FUROSEMIDE 40 MG TABLET PO SCH (08:43)
[2023-08-06] MEDS: carvediloL 12.5 MG TAB PO SCH (08:43)
[2023-08-06] MEDS: SPIRONOLACTONE 25 MG TABLET PO SCH (08:51)
[2023-08-06] MEDS ORDERED: HYDRALAZINE HCL 25 MG TABLET PO SCH (09:00)
[2023-08-06 16:01] VITALS: BP 164/97; TEMP 98.3
[2023-08-06 20:25] VITALS: O2SAT 96
== END 2023-08-06 20:30 | DRG 291 ==
LOC: ER 15:31 → ERHOLD 18:21 → 2ND 08-05 07:24
PROVIDERS: ADMIT Family Medicine; ATTEND Internal Medicine Sleep Medicine
DX: I13.0 Hypertensive heart and chronic kidney disease with heart failure and stage 1 through stage 4 chronic kidney disease, or unspecified chronic kidney disease (principal); I50.43 Acute on chronic combined systolic (congestive) and diastolic (congestive) heart failure; J96.00 Acute respiratory failure, unspecified whether with hypoxia or hypercapnia; F03.911 Unspecified dementia, unspecified severity, with agitation; N17.9 Acute kidney failure, unspecified; N18.2 Chronic kidney disease, stage 2 (mild); E11.22 Type 2 diabetes mellitus with diabetic chronic kidney disease; D63.1 Anemia in chronic kidney disease; E78.00 Pure hypercholesterolemia, unspecified; I48.91 Unspecified atrial fibrillation; R29.6 Repeated falls; Z79.4 Long term (current) use of insulin; Z91.81 History of falling; Z79.02 Long term (current) use of antithrombotics/antiplatelets; Z79.899 Other long term (current) drug therapy; W19.XXXA Unspecified fall, initial encounter; Y93.9 Activity, unspecified; Y92.129 Unspecified place in nursing home as the place of occurrence of the external cause; Y99.9 Unspecified external cause status
CPT/HCPCS: 36415; 70450; 71045; 72125; 80048; 80053; 81003; 82947; 83735; 83880; 84484; 85025; 93005; 93970; 94760; 96374; 99285; J1650; J1940